=== PATIENT | male | born 1995 | race Two or more races ===

== ENCOUNTER 2020-07-01 12:07 | Emergency (ER) | payer MEDICAID, SELFPAY ==
[2020-07-01 13:16] VITALS: BP 154/83; PULSE 84; RESP 16; TEMP 36.9; O2SAT 98; BMI 35.9
--- NOTE | 2020-07-01 15:41 | ED.DIZZY ---
HPI - Dizziness General Chief Complaint: Dizziness Stated Complaint: lightheaded,ears warm Time Seen by Provider: 07/01/20 15:41 Source: patient Mode of arrival: ambulatory Limitations: no limitations History of Present Illness HPI Narrative: Patient was at work when he suddenly got dizzy. MD elicited complaint: dizziness and lightheadedness Onset (ago): hour(s) Severity: mild Description: lightheadedness History of similar symptoms: No Associated symptoms: other (dry mouth and ear burning) Related Data Allergies Allergy/AdvReac Type Severity Reaction Status Date / Time Environmental Allergy Mild PLANTS-STUFFY Uncoded 06/03/20 17:04 NOSE dust Allergy Unknown Uncoded 01/30/20 00:00 Review of Systems Constitutional: Constitutional: Reports no additional constitutional complaints Eyes: Eyes: Reports no additional eye complaints ENT: Denies dizziness Cardiovascular: Cardiovascular: Reports no additional cardiovascular complaints Respiratory: Respiratory: Reports as per HPI Gastrointestinal: Gastrointestinal: Reports no additional gastrointestinal complaints Musculoskeletal: Musculoskeletal: Reports no additional musculoskeletal complaints Integumentary/Breasts: Skin/Breast: Denies rash Neurologic: Reports system reviewed and no additional complaints, except as documented, Denies dizziness and Denies Sensory deficit (Neuro) Psychiatric: Psychiatric: Denies anxiety PMFSH Past Medical History Medical History (Updated 07/01/20 @ 16:58 by Alessandro Cornejo MD) HTN (hypertension) Pre-diabetes Surgical History (Updated 07/01/20 @ 13:19 by Eloy Smith) Hx of tonsillectomy Social History Social History Alcohol intake: current Alcohol intake frequency: holidays/special occasions only Alcohol type: beer and wine Smoked in Last 30 Days: No Use of substances other than those prescribed or required for medical reasons: No Advance Directives: No Advance Directives Information Provided: Yes Physical Exam Vital Signs: Vital Signs: Vital Signs Temp Pulse Resp BP Pulse Ox 07/01/20 15:48 98.7 F 78 16 130/82 98 07/01/20 13:16 98.5 F 84 16 154/83 H 98 Body Mass Index 35.9 Const: General: healthy appearing Nutritional Appearance: overweight Orientation/consciousness: oriented to person and patient oriented x3 Limitations: no limitations HENMT: Head: Yes normal to inspection Ears: external ears normal General nose exam: Normal external nose present Mouth: Normal oral and palatal mucosa present and oropharynx normal Throat: Yes posterior oropharynx normal Eyes: General: appearance normal, both eyes and all related structures Neck: Other: supple Neck: Yes normal visual inspection Chest: Chest palpation & inspection: normal inspection of the chest Resp: Auscultation: clear to auscultation bilaterally Cardio: Jugular venous distension: no JVD Rate: regular rate Rhythm: regular rhythm Heart sounds: S1 normal heart sound present and S2 normal heart sound present GI: Inspection: Yes normal to inspection Palpation (GI): Soft to palpation, nontender and No hepatosplenomegaly present Auscultation: normal bowel sounds : General: Yes no CVA tenderness Back/Spine/Pelvis: Back: no CVA tenderness Skin: General skin exam: no rashes or lesions noted Neuro: General: oriented to person and patient oriented x3 Cranial nerves: Yes CN's II-XII intact bilaterally Motor exam (neuro): 5/5 motor strength present throughout Sensory Exam: No Sensory deficit (Neuro) Extrem: General: Yes normal to inspection Psych: Appearance: grossly normal Course Course Course Narrative: urine and glucose normal will dc with home hydration MDM - Dizziness Lab Data Labs: Lab Results 07/01/20 07/01/20 Range/Units 15:58 16:01 POC Glucose 103 (60-115) mg/dL Urine Color YELLOW Urine Appearance CLEAR Urine pH 7.0 (5.0-8.0) Ur Specific [place] 1.020 (1.005-1.025) Urine Protein NEG (NEG-TRACE) MG/DL Urine Glucose (UA) NEG (NEG) MG/DL Urine Ketones NEG (NEG) MG/DL Urine Blood TRACE (NEG) Urine Nitrite NEG (NEG) Ur Leukocyte Esterase NEG (NEG) Urine RBC 0-2 (0) /HPF Urine WBC 0 (0-4) /HPF Ur Squamous Epith Cells NONE /LPF Urine Bacteria TRACE /LPF Discharge Plan Discharge Clinical Impression: Dizziness Patient Disposition: Home, Self-Care Additional Instructions: fluids as tolerated Referrals: [facility] [Primary Care Provider] - 2 days
[2020-07-01 15:48] VITALS: BP 130/82; PULSE 78; RESP 16; TEMP 37.1; O2SAT 98
[2020-07-01 16:05] LABS: Glucose, Whole Blood 103 mg/dL (60-115)
[2020-07-01 16:12] LABS: Glucose Urine UA NEG (NEG); Leukocyte Esterase Urine NEG (NEG); Nitrite Urine NEG (NEG); Urine Blood TRACE (NEG); Urine Ketones NEG (NEG); Urine Protein NEG (NEG-TRACE)
[2020-07-01 16:13] LABS: Appearance Urine CLEAR; Color Urine YELLOW
[2020-07-01 16:22] LABS: Bacteria Urine TRACE /LPF; RBC Urine 0-2 /HPF (0); WBC Urine 0 /HPF (0-4)
== END 2020-07-01 17:00 | disposition home or self-care (01) ==
PROVIDERS: Emergency Provider Emergency Medicine
DX: R42 Dizziness and giddiness (principal); I10 Essential (primary) hypertension; R73.03 Prediabetes
CPT/HCPCS: 81001; 82947; 99283; 99284

== ENCOUNTER 2020-10-18 11:57 | Outpatient (REF) | payer MEDICAID, SELFPAY | END 2020-10-18 11:58 | disposition home or self-care (01) | LOC: HO.LAB 11:57 | PROVIDERS: Visit Provider Internal Medicine | DX: Z20.822 Contact with and (suspected) exposure to COVID-19 (principal) | CPT/HCPCS: 36415; C9803; U0003; U0005 ==

== ENCOUNTER 2020-11-06 11:40 | Emergency (ER) | payer MEDICAID, SELFPAY ==
--- NOTE | ~2020-11-06 | CT_ITS ---
EXAMINATION: CT ABDOMEN AND PELVIS WITH CONTRAST CLINICAL INFORMATION: Rectal pain. Tender prostate COMPARISON: 02/05/2020 TECHNIQUE: Multidetector volumetric images were obtained from the superior aspect of the liver through the pubic symphysis following administration 85 mL of Omnipaque 350 intravenous contrast. Sagittal and coronal reformatted images were obtained on the technologist's workstation. Oral contrast: No This CT examination was performed using dose optimization techniques as appropriate, variously including the following: *Automated exposure control *Adjustment of mA and/or kV according to patient size (this includes techniques or standardized protocols for targeted exams where dose is matched to indication/reason for exam; i.e. extremities or head) *Use of iterative reconstruction technique DLP: 884 mGy-cm FINDINGS: LUNG BASES: Clear. LIVER, GALLBLADDER, AND BILIARY TREE: Liver normal in size, contour and morphology. Diffuse hepatic steatosis. No focal liver lesions. No intra or extra hepatic biliary dilatation. Gallbladder unremarkable. PANCREAS: Unremarkable. SPLEEN: Unremarkable. ADRENAL GLANDS: Unremarkable. KIDNEYS AND URETERS: The kidneys are normal in size, shape, and attenuation. Subcentimeter cyst in the upper medial cortex of the right kidney. No hydronephrosis, hydroureter, or calculi seen. No perinephric stranding. BLADDER: Unremarkable. GASTROINTESTINAL TRACT: Scattered sigmoid colonic diverticula without evidence of diverticulitis. Normal appendix. Stomach and small bowel unremarkable. ABDOMINAL WALL: No significant hernia is appreciated. LYMPH NODES: Normal. VASCULAR: Unremarkable. PELVIC VISCERA: Prostate and seminal vesicles grossly unremarkable from a CT imaging standpoint. OSSEOUS STRUCTURES: No acute or suspicious osseous abnormalities CT/CT abdomen pelvis w con IMPRESSION: No acute findings within the abdomen or pelvis to explain the patient's symptomatology. Hepatic steatosis. Scattered sigmoid colonic diverticula without evidence of diverticulitis.
[2020-11-06 11:54] VITALS: BP 149/95; PULSE 86; RESP 18; TEMP 36.7; O2SAT 97; BMI 35.8
[2020-11-06 12:36] LABS: Glucose Urine UA NEG (NEG); Leukocyte Esterase Urine NEG (NEG); Nitrite Urine NEG (NEG); Urine Blood NEG (NEG); Urine Ketones NEG (NEG); Urine Protein NEG (NEG-TRACE)
[2020-11-06 12:38] LABS: Appearance Urine CLEAR; Color Urine YELLOW
[2020-11-06 17:16] VITALS: BP 147/85; PULSE 74; RESP 16; O2SAT 98
--- NOTE | 2020-11-06 17:31 | PC.NURSE ---
this rn and pa at bedside for rectal exam. no blood or stool noted during exam. pt tender in the prostate area. plan for probtec urine.
[2020-11-06 18:00] VITALS: PULSE 85; RESP 16; O2SAT 99
[2020-11-06 18:04] LABS: MANUAL DIFF FLAG NO
[2020-11-06 18:08] LABS: Basophils Percent Auto 0.3 % (0-2); Eosinophils Absolute Auto 0.1 X10*3/uL (0.0-0.4); Eosinophils Percent Auto 1.7 % (0-4); Hematocrit 47.2 % (42-52); Imm Gran Abs Auto 0.01 X10*3/uL (0.00-0.03); Imm Gran Pct Auto 0.2 % (0.0-0.4); Lymphocytes Absolute Auto 1.8 X10*3/uL (1.2-4.9); Lymphocytes Percent Auto 31.3 % (20-40); Mean Corpuscular HGB Conc 33.9 g/dl (31.0-36.0); Mean Corpuscular Hemoglobin 29.5 pg (27.0-33.0); Mean Corpuscular Volume 86.9 fL (80-98); Mean Platelet Volume 10.5 fL (9.4-12.4); Monocytes Absolute Auto 0.6 X10*3/uL (0.1-1.2); Monocytes Percent Auto 9.6 % (2-11); Neutrophils Absolute Auto 3.3 X10*3/uL (2.0-8.3); Neutrophils Percent Auto 56.9 % (45-73); Platelet Count 169 X10*3/uL (160-400); Red Blood Count 5.43 X10*6/uL (4.60-5.80); Red Cell Distribution Width 12.8 % (11.0-16.0); White Blood Count 5.8 X10*3/uL (4.8-10.8)
[2020-11-06 18:30] LABS: Alanine Aminotransferase 52 U/L (0-40); Albumin Level 4.4 g/dL (3.5-5.0); Alkaline Phosphatase 64 U/L (39-117); Anion Gap 14 (12-20); Aspartate Amino Transferase 25 U/L (5-37); Bilirubin Direct 0.2 mg/dL (0.0-0.5); Bilirubin Total 0.6 mg/dL (0.0-1.0); Blood Urea Nitrogen 11 mg/dL (9-16); C Reactive Protein 0.11 mg/dL (< or = 0.50); Carbon Dioxide 30 mmol/L (22-29); Chloride 102 mmol/L (96-108); Creatinine Clr Calc Pharmacy 166.2; Estimated Glomerular Filt Rate > 60; Glucose Random 86 mg/dL (60-115); Lipase 44 U/L (8-78); Potassium 4.1 mmol/L (3.3-5.1); Sodium 142 mmol/L (135-145); Total Protein 7.2 g/dL (6.5-8.0)
--- NOTE | 2020-11-06 18:51 | ED_ITS ---
HPI - Abdominal Pain General Chief Complaint: Abdominal Pain Stated Complaint: R LEG PAIN COLON PAIN Time Seen by Provider: 11/06/20 17:07 Source: patient Mode of arrival: ambulatory History of Present Illness HPI narrative: 24-year-old male with a past medical history of hypertension, prediabetes, presenting to the ED complaining of rectal pain/pressure and burning x2 days. Has been using hemorrhoid medication at home without relief. A dmits he is sexually active with 1 female partner, denies history/concern for STIs. Denies fever, chills, nausea/vomiting, abdominal pain, dysuria/hematuria, testicular/penile pain, anal trauma/penetration. MD elicited complaint: other Related Data Previous Rx's Medication Instructions Recorded levofloxacin 500 mg PO DAILY 10 Days #10 tab 11/06/20 Allergies Allergy/AdvReac Type Severity Reaction Status Date / Time minerals [From Enviro Stress] Allergy Itchy Eyes Verified 11/06/20 12:01 pollen extracts Allergy Itchy Eyes Verified 11/06/20 12:01 vitamin B complex and C Allergy Itchy Eyes Verified 11/06/20 12:01 [From Enviro Stress] vitamin E (d-alpha Allergy Itchy Eyes Verified 11/06/20 12:01 tocopherol) [From Enviro Stress] Review of Systems Review of Systems Constitutional: No Fever, No Chills Cardiovascular: No Chest Pain, No SOB Respiratory: No Cough Gastrointestinal: No Nausea, No Vomiting, No Diarrhea, No Constipation, No Abdominal pain, No Hematochezia, No Melena Genitourinary: No irregular bleeding, No Dysuria, No Urinary Frequency, No Hematuria, No Flank Pain, No Urinary Flow Changes, +rectal pain Musculoskeletal: No joint pain, No Myalgias, No Joint Swelling Skin: No Skin Lesions, No rash Yes all other systems are reviewed and are negative Physical Exam Vital Signs: Vital Signs: Last Vital Signs Temp 98.1 F 11/06/20 11:54 Pulse 85 11/06/20 18:00 Resp 16 11/06/20 18:00 BP 147/85 H 11/06/20 17:16 Pulse Ox 99 11/06/20 18:00 Body Mass Index 35.8 Const: General: cooperative and healthy appearing Orientation/consciousness: patient oriented x3 Limitations: no limitations HENMT: Head: Yes normal to inspection Ears: hearing grossly normal bilaterally General nose exam: Normal external nose present Face and sinus: Yes normal facial exam Eyes: General: appearance normal, both eyes and all related structures EOM: EOMs intact bilaterally Neck: Neck: Yes normal visual inspection Resp: Effort & Inspection: normal respiratory effort Cardio: Rate: regular rate GI: Inspection: Yes normal to inspection Palpation (GI): Soft to palpation, nontender, no guarding and not rigid Rectal Exam - Male: Yes visual inspection normal, Yes normal sphincter tone, Yes prostate abnormal (Boggy and tender to palpation), No External hemorrhoid(s) present, No Fistula present (GI), No Laceration(s) present (GI), No Excoriation present (GI), No fecal impaction, No Anal fissure(s) present and No mass : General: Yes no CVA tenderness Back/Spine/Pelvis: Back: no CVA tenderness Skin: Rashes: no rashes Wounds: no wounds Neuro: General: patient oriented x3 Gait exam (Neuro): Normal gait present Extrem: General: Yes normal to inspection Course Course Course Narrative: -ALT mildly elevated, labs otherwise unremarkable, no leukocytosis, ESR/CRP negative -UA negative CT abdomen pelvis w con IMPRESSION: No acute findings within the abdomen or pelvis to explain the patient's symptomatology. Hepatic steatosis. Scattered sigmoid colonic diverticula without evidence of diverticulitis. >> will treat empirically for prostatitis with Levaquin. results discussed with patient including worrisome signs and symptoms and strict return precautions. Will have patient follow-up urology outpatient. He verbalized understanding feel safe for discharge home MDM - Abdominal Pain MDM Narrative Medical decision making narrative: 24-year-old male with a past medical history of hypertension, prediabetes, presenting to the ED complaining of rectal pain/pressure and burning x2 days. On exam VSS, NAD/well-appearing, physical exam as above. On digital rectal exam prostate noted to be boggy and tender. Concern for prostatitis vs UTI vs abscess vs anatomical issue. No appreciable hemorrhoids/fissures. Lower concern for appendicitis/diverticulitis Plan: Labs, UA, CT AP, re-evaluate Medical Records Attestation: I reviewed the patient's medical records. Lab Data Attestation: I reviewed the patient's lab results. Result diagrams: 11/06/20 17:57 11/06/20 17:57 Labs: Lab Results 11/06/20 11/06/20 11/06/20 Range/Units 12:03 17:57 17:57 WBC (4.8-10.8) X10*3/uL RBC (4.60-5.80) X10*6/uL Hgb (14.0-18.0) g/dl Hct (42-52) % MCV (80-98) fL MCH (27.0-33.0) pg MCHC (31.0-36.0) g/dl RDW (11.0-16.0) % Plt Count (160-400) X10*3/uL MPV (9.4-12.4) fL Immature Gran % (Auto) (0.0-0.4) % Neut % (Auto) (45-73) % Lymph % (Auto) (20-40) % [place] % (Auto) (2-11) % Eos % (Auto) (0-4) % Baso % (Auto) (0-2) % Lymph # (Auto) (1.2-4.9) X10*3/uL [place] # (Auto) (0.1-1.2) X10*3/uL Eos # (Auto) (0.0-0.4) X10*3/uL Baso # (Auto) (0.0-0.2) X10*3/uL Abs Immat Gran (auto) (0.00-0.03) X10*3/uL Absolute Neuts (auto) (2.0-8.3) X10*3/uL Absolute Nucleated RBC (0.0-0.012) X10*3/uL Nucleated RBC % (auto) (0.0-0.2) /100WBC ESR 4 (0-15) MM/HR Hold Blue Top Sodium 142 (135-145) mmol/L Potassium 4.1 (3.3-5.1) mmol/L Chloride 102 (96-108) mmol/L Carbon Dioxide 30 H (22-29) mmol/L Anion Gap 14 (12-20) BUN 11 (9-16) mg/dL Creatinine 0.96 (0.5-1.4) mg/dL Estim Creat Clear Calc 166.2 Estimated GFR > 60 Random Glucose 86 (60-115) mg/dL Calcium 9.0 (8.4-10.2) mg/dL Total Bilirubin 0.6 (0.0-1.0) mg/dL Direct Bilirubin 0.2 (0.0-0.5) mg/dL AST 25 (5-37) U/L ALT 52 H (0-40) U/L Alkaline Phosphatase 64 (39-117) U/L C-Reactive Protein 0.11 (< or = 0.50) mg/dL Total Protein 7.2 (6.5-8.0) g/dL Albumin 4.4 (3.5-5.0) g/dL Lipase 44 (8-78) U/L Urine Color YELLOW Urine Appearance CLEAR Urine pH 7.0 (5.0-8.0) Ur Specific [place] 1.020 (1.005-1.025) Urine Protein NEG (NEG-TRACE) MG/DL Urine Glucose (UA) NEG (NEG) MG/DL Urine Ketones NEG (NEG) MG/DL Urine Blood NEG (NEG) Urine Nitrite NEG (NEG) Ur Leukocyte Esterase NEG (NEG) 11/06/20 11/06/20 Range/Units 17:57 17:57 WBC 5.8 (4.8-10.8) X10*3/uL RBC 5.43 (4.60-5.80) X10*6/uL Hgb 16.0 (14.0-18.0) g/dl Hct 47.2 (42-52) % MCV 86.9 (80-98) fL MCH 29.5 (27.0-33.0) pg MCHC 33.9 (31.0-36.0) g/dl RDW 12.8 (11.0-16.0) % Plt Count 169 (160-400) X10*3/uL MPV 10.5 (9.4-12.4) fL Immature Gran % (Auto) 0.2 (0.0-0.4) % Neut % (Auto) 56.9 (45-73) % Lymph % (Auto) 31.3 (20-40) % [place] % (Auto) 9.6 (2-11) % Eos % (Auto) 1.7 (0-4) % Baso % (Auto) 0.3 (0-2) % Lymph # (Auto) 1.8 (1.2-4.9) X10*3/uL [place] # (Auto) 0.6 (0.1-1.2) X10*3/uL Eos # (Auto) 0.1 (0.0-0.4) X10*3/uL Baso # (Auto) 0.0 (0.0-0.2) X10*3/uL Abs Immat Gran (auto) 0.01 (0.00-0.03) X10*3/uL Absolute Neuts (auto) 3.3 (2.0-8.3) X10*3/uL Absolute Nucleated RBC 0.000 (0.0-0.012) X10*3/uL Nucleated RBC % (auto) 0.0 (0.0-0.2) /100WBC ESR (0-15) MM/HR Hold Blue Top SEE NOTE Sodium (135-145) mmol/L Potassium (3.3-5.1) mmol/L Chloride (96-108) mmol/L Carbon Dioxide (22-29) mmol/L Anion Gap (12-20) BUN (9-16) mg/dL Creatinine (0.5-1.4) mg/dL Estim Creat Clear Calc Estimated GFR Random Glucose (60-115) mg/dL Calcium (8.4-10.2) mg/dL Total Bilirubin (0.0-1.0) mg/dL Direct Bilirubin (0.0-0.5) mg/dL AST (5-37) U/L ALT (0-40) U/L Alkaline Phosphatase (39-117) U/L C-Reactive Protein (< or = 0.50) mg/dL Total Protein (6.5-8.0) g/dL Albumin (3.5-5.0) g/dL Lipase (8-78) U/L Urine Color Urine Appearance Urine pH (5.0-8.0) Ur Specific [place] (1.005-1.025) Urine Protein (NEG-TRACE) MG/DL Urine Glucose (UA) (NEG) MG/DL Urine Ketones (NEG) MG/DL Urine Blood (NEG) Urine Nitrite (NEG) Ur Leukocyte Esterase (NEG) Discharge Plan Discharge Clinical Impression: Acute prostatitis Patient Disposition: Home, Self-Care Instructions: Prostatitis (ED) Additional Instructions: Your blood work, urine, and CT were reassuring today in the ED. It is possible you have prostatitis which is an infection of the prostate. Levaquin is an antibiotic, take as prescribed. You need to follow-up with urologist. If her symptoms persist or worsen, you have fever, rectal bleeding, nausea/vomiting return to the ED immediately Prescriptions: New levofloxacin 500 mg tablet 500 mg PO DAILY 10 Days Qty: 10 RF: 0 Referrals: Franklyn Hernandez MD [Physician] - 5 days PMF Past Medical History Attestation statement: The following information was validated with the patient. Medical History (Updated 11/06/20 @ 19:28 by JOCY Curiel) HTN (hypertension) Pre-diabetes Social History Social History Alcohol intake: current Alcohol intake frequency: holidays/special occasions only Alcohol type: beer and wine Smoking Status: Never smoker Use of substances other than those prescribed or required for medical reasons: No Advance Directives: Yes Advance Directives Information Provided: Yes Advance Directives on File: No
[2020-11-06 19:02] LABS: Erythrocyte Sedimentation Rate 4 MM/HR (0-15)
[2020-11-06] MEDS: iohexoL 350 MG/ML 100 ML INFUS..BTL IV (19:09)
[2020-11-06 19:41] VITALS: BP 148/91; PULSE 68; RESP 18; TEMP 36.6; O2SAT 99
[2020-11-06] MEDS: levoFLOXacin 500 MG TABLET PO (19:52)
[2020-11-12 12:07] LABS: C. trachomatis RNA TMA NOT DETECTED; N. gonorrhoeae RNA TMA NOT DETECTED
== END 2020-11-06 19:53 | disposition home or self-care (01) ==
PROVIDERS: Physician Assistant; Emergency Provider Internal Medicine
DX: N41.0 Acute prostatitis (principal); I10 Essential (primary) hypertension; R73.03 Prediabetes
CPT/HCPCS: 36415; 74177; 80048; 80076; 81003; 83690; 85025; 85652; 86140; 87491; 87591; 99284; 99285; Q9967

== ENCOUNTER 2020-12-09 12:52 | Emergency (ER) | payer MEDICAID, SELFPAY ==
[2020-12-09 13:23] VITALS: BP 158/85; PULSE 73; RESP 18; TEMP 36.6; O2SAT 99; BMI 35.3
--- NOTE | 2020-12-09 13:41 | ED.GENADULT ---
HPI - General Adult General Chief complaint: General Medical Stated complaint: back pain,no inj Time Seen by Provider: 12/09/20 13:41 History of Present Illness HPI narrative: Patient complains of low back pain worse with movement, he is concerned as he had an episode of prostatitis some months ago that included pain in the lower back but today's pain is not the same location, he has no burning with urination no abdominal pain no testicular pain no rectal pain, no fever no chills no nausea no vomiting Related Data Previous Rx's Medication Instructions Recorded levofloxacin 500 mg PO DAILY 10 Days #10 tab 11/06/20 cyclobenzaprine 5 mg PO TID PRN #10 tab 12/09/20 Allergies Allergy/AdvReac Type Severity Reaction Status Date / Time minerals [From Enviro Stress] Allergy Itchy Eyes Verified 11/06/20 12:01 pollen extracts Allergy Itchy Eyes Verified 11/06/20 12:01 vitamin B complex and C Allergy Itchy Eyes Verified 11/06/20 12:01 [From Enviro Stress] vitamin E (d-alpha Allergy Itchy Eyes Verified 11/06/20 12:01 tocopherol) [From Enviro Stress] Review of Systems Review of Systems: General appearance no acute distress comfortable relaxed and cooperative, a and O x3 Head is normocephalic atraumatic Neck is supple Respiratory no distress Abdomen soft nontender Genital exam no testicular swelling no discharge no hernia mass palpated Rectal exam was normal rectal tone, normal colored stool on the glove, no prostate tenderness, no bogginess or swelling of the prostate, no mass palpated Back had lower lumbar tenderness paraspinal on both sides, pain was reproduced with movement, the skin was normal, no CVA tenderness Skin no rash Extremities full range of motion x4 Neuro no focal deficit Yes all other systems are reviewed and are negative [facility] Past Medical History Medical History (Updated 12/10/20 @ 00:01 by Background Daemon) HTN (hypertension) Pre-diabetes Social History Social History Alcohol intake: current Alcohol intake frequency: holidays/special occasions only Alcohol type: beer and wine Smoking Status: Never smoker Physical Exam Vital Signs: Vital Signs: Last Vital Signs Temp 97.8 F 12/09/20 13:23 Pulse 73 12/09/20 13:23 Resp 18 12/09/20 13:23 BP 158/85 H 12/09/20 13:23 Pulse Ox 99 12/09/20 13:23 Body Mass Index 35.3 Course Course Course Narrative: Urinalysis was negative, no sign of infection GC chlamydia tests are pending Prostate exam was normal it was pain-free and this does not appear to be prostatitis and is most likely musculoskeletal back pain Medical Decision Making Lab Data Lab results reviewed: Yes I reviewed the patient's lab results. Labs: Lab Results 12/09/20 12/09/20 Range/Units 14:11 14:11 Urine Color YELLOW Urine Appearance CLEAR Urine pH 7.0 (5.0-8.0) Ur Specific [place] 1.020 (1.005-1.025) Urine Protein NEG (NEG-TRACE) MG/DL Urine Glucose (UA) NEG (NEG) MG/DL Urine Ketones NEG (NEG) MG/DL Urine Blood NEG (NEG) Urine Nitrite NEG (NEG) Ur Leukocyte Esterase NEG (NEG) Chlam trachomat DNA PCR NOT DETECTED (Not Detect.) N.gonorrhoeae DNA (PCR) NOT DETECTED (Not Detect.) Discharge Plan Discharge Clinical Impression: Low back pain, Elevated blood pressure reading Patient Disposition: Home, Self-Care Additional Instructions: The prostate exam today was normal with no sign of prostatitis, your urinalysis was normal too Pain is likely musculoskeletal pain If anything changes or worsens come back to the ER any time As you had a history of prostatitis it is a good idea to follow with the urologist Your blood pressure was elevated at 158/85, this may be simple anxiety at going to the hospital or it may be that it is always elevated despite taking her medicine Best plan is get a home blood pressure cuff and keep a log of the readings and if their high over 130 then make an appointment with primary doctor for adjustment or change in her blood pressure controlling medications Prescriptions: New cyclobenzaprine 5 mg tablet 5 mg PO TID PRN (Reason: muscle spasm) Qty: 10 RF: 0 No Action levofloxacin 500 mg tablet 500 mg PO DAILY 10 Days Qty: 10 RF: 0 Referrals: Franklyn Hrenandez MD [Physician] - 2 days (Recent prostatitis infection) Stand Alone Forms: Work/School Release Interventions: ED Discharge Assessment Last Done: 12/09/20 15:03 Discharge Date/Time: 12/09/20 15:04
[2020-12-09 14:25] LABS: Glucose Urine UA NEG (NEG); Leukocyte Esterase Urine NEG (NEG); Nitrite Urine NEG (NEG); Urine Blood NEG (NEG); Urine Ketones NEG (NEG); Urine Protein NEG (NEG-TRACE)
[2020-12-09 14:27] LABS: Appearance Urine CLEAR; Color Urine YELLOW
[2020-12-09 16:26] LABS: CT PCR NOT DETECTED (Not Detect.); NG PCR NOT DETECTED (Not Detect.)
== END 2020-12-09 15:04 | disposition home or self-care (01) ==
PROVIDERS: Physician Assistant Medical; Emergency Provider Emergency Medicine
DX: M54.5 Low back pain (principal); I10 Essential (primary) hypertension
CPT/HCPCS: 81003; 87491; 87591; 99283

== ENCOUNTER 2020-12-13 07:42 | Outpatient (REF) | payer MEDICAID, SELFPAY | END 2020-12-13 07:43 | disposition home or self-care (01) | LOC: HO.LAB 07:42 | PROVIDERS: Visit Provider Internal Medicine | DX: Z20.822 Contact with and (suspected) exposure to COVID-19 (principal) | CPT/HCPCS: 36415; C9803; U0003; U0005 ==

== ENCOUNTER 2021-01-26 14:06 | Outpatient (REF) | payer MEDICAID, SELFPAY ==
[2021-01-26 14:44] LABS: COVID-19 Test Negative (Negative)
== END 2021-01-26 14:07 | disposition home or self-care (01) ==
LOC: HO.LAB 14:06
PROVIDERS: Visit Provider Internal Medicine
DX: Z20.822 Contact with and (suspected) exposure to COVID-19 (principal)
CPT/HCPCS: 36415; 87635; C9803

== ENCOUNTER 2021-03-08 19:57 | Emergency (ER) | payer MEDICAID, SELFPAY ==
[2021-03-08 20:03] VITALS: BP 158/79; PULSE 72; RESP 18; TEMP 36.1; O2SAT 97; BMI 35.9
== END 2021-03-08 21:21 | disposition left against medical advice (07) ==
PROVIDERS: Emergency Provider Emergency Medicine
DX: R42 Dizziness and giddiness (principal)
CPT/HCPCS: 99281; 99282

== ENCOUNTER 2021-03-11 10:36 | Emergency (ER) | payer MEDICAID, SELFPAY ==
[2021-03-11 10:42] VITALS: BP 154/86; PULSE 78; RESP 18; TEMP 36.6; O2SAT 99; BMI 35.9
--- NOTE | 2021-03-11 11:20 | ED_ITS ---
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 He reports profuse bleeding from the tip of his finger and thinks he almost cut it completely off. He has pain and bleeding on arrival. He does not know when his last tetanus shot was. Onset (ago): minute(s) Extremity Location: left: hand (distal index finger) Place: work Patient tetanus UTD: No Context: accidental Associated symptoms: pain Treatments prior to arrival: bandage Related Data Previous Rx's Medication Instructions Recorded levofloxacin 500 mg PO DAILY 10 Days #10 tab 11/06/20 cyclobenzaprine 5 mg PO TID PRN #10 tab 12/09/20 Allergies Allergy/AdvReac Type Severity Reaction Status Date / Time minerals [From Enviro Stress] Allergy Itchy Eyes Verified 03/11/21 10:47 pollen extracts Allergy Itchy Eyes Verified 03/11/21 10:47 vitamin B complex and C Allergy Itchy Eyes Verified 03/11/21 10:47 [From Enviro Stress] vitamin E (d-alpha Allergy Itchy Eyes Verified 03/11/21 10:47 tocopherol) [From Enviro Stress] Review of Systems Review of Systems: Constitutional: No Fever, No Chills Gastrointestinal: No Nausea, No Vomiting Musculoskeletal: No joint pain, No Myalgias Skin: + Skin Lesions, No rash Neuro: No Weakness, No Numbness Psych: + Anxiety/Panic, No Depression Heme/Lymph: No Bruising PMFSH Past Medical History Attestation statement: The following information was validated with the patient. Medical History HTN (hypertension) Pre-diabetes Social History Social History Alcohol intake: current Alcohol intake frequency: holidays/special occasions o nly Alcohol type: beer and wine Advance Directives: Yes Advance Directives Information Provided: No Advance Directives on File: No Physical Exam Vital Signs: Vital Signs: Last Vital Signs Temp 98 F 03/11/21 10:42 Pulse 78 03/11/21 10:42 Resp 18 03/11/21 10:42 BP 154/86 H 03/11/21 10:42 Pulse Ox 99 03/11/21 10:42 Body Mass Index 35.9 Appearance: Alert. Oriented X3. No acute distress. HEENT: normal inspection CVS: Normal heart rate and rhythm. Pulses normal. Respiratory: No respiratory distress. Skin: Skin warm and dry. Normal skin color. Normal skin turgor. No rashes. Extremities: left index finger with superficial avulsion of the fingertip pad with active oozing of blood. normal ROM of the finger, good cap refill. no laceration or flap Neuro: Oriented X 3. No motor deficit. No sensory deficit. Course Course Course Narrative: 25 y/o male presenting with left index fingertip complete avulsion of finger pulp, superficial with active bleeding. Direct pressure applied for >10 mins with continued bleeding. Quickclot applied with good effect. Gauze dressing applied to the area for reinforcement. No active bleeding. Patient would like to be discharged so he can go back to work. Encouraged him to take the rest of the day off and limit use of his left hand. We discussed wound care and warning signs to prompt urgent return to the ER. Stable for d/c. Discharge Plan Discharge Clinical Impression: Avulsion of skin Patient Disposition: Home, Self-Care Instructions: Skin Avulsion (ED) Prescriptions: No Action levofloxacin 500 mg tablet 500 mg PO DAILY 10 Days Qty: 10 RF: 0 cyclobenzaprine 5 mg tablet 5 mg PO TID PRN (Reason: muscle spasm) Qty: 10 RF: 0 Referrals: [facility] [Provider Group] - 2 days
[2021-03-11] MEDS: Diphth,Pertus(ACell),Tet Adult 0.5 ML SYRINGE IM (11:31)
== END 2021-03-11 11:36 | disposition home or self-care (01) ==
PROVIDERS: Emergency Provider Emergency Medicine
DX: S61.211A Laceration without foreign body of left index finger without damage to nail, initial encounter (principal); W29.3XXA Contact with powered garden and outdoor hand tools and machinery, initial encounter; Y93.H2 Activity, gardening and landscaping; Y92.89 Other specified places as the place of occurrence of the external cause; Y99.0 Civilian activity done for income or pay
CPT/HCPCS: 90471; 90715; 99284

== ENCOUNTER 2021-03-23 16:24 | Emergency (ER) | payer MEDICAID, SELFPAY ==
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
[2021-03-23 16:44] VITALS: BP 168/89; RESP 17; TEMP 36.8; O2SAT 98; BMI 35.9
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
[2021-03-23 17:43] LABS: Glucose Urine UA NEG (NEG); Leukocyte Esterase Urine NEG (NEG); Nitrite Urine NEG (NEG); Specific Gravity - Urine <= 1.005 (1.005-1.025); Urine Blood NEG (NEG); Urine Ketones NEG (NEG); Urine Protein NEG (NEG-TRACE)
[2021-03-23 17:46] LABS: Appearance Urine CLEAR; Color Urine YELLOW
[2021-03-23] MEDS: cefTRIAXone sodium 500 MG, Lidocaine HCl 1 % MPF 1 ML IM (18:01)
[2021-03-23 18:37] LABS: Syphilis Screen Nonreactive (Nonreactive)
[2021-03-24 02:32] LABS: CT PCR NOT DETECTED (Not Detect.); NG PCR NOT DETECTED (Not Detect.)
== END 2021-03-23 18:16 | disposition home or self-care (01) ==
PROVIDERS: Physician Assistant Medical; Emergency Provider Emergency Medicine
DX: S39.012A Strain of muscle, fascia and tendon of lower back, initial encounter (principal); R30.9 Painful micturition, unspecified; I10 Essential (primary) hypertension; V92.03XA Drowning and submersion due to fall off other powered watercraft, initial encounter; Y93.9 Activity, unspecified; Y92.9 Unspecified place or not applicable; Y99.9 Unspecified external cause status; Z20.2 Contact with and (suspected) exposure to infections with a predominantly sexual mode of transmission
CPT/HCPCS: 36415; 72100; 81003; 86780; 87491; 87591; 96372; 99284; J0696

== ENCOUNTER 2021-08-03 11:17 | Emergency (ER) | payer MEDICAID, SELFPAY ==
--- NOTE | ~2021-08-03 | XR_ITS ---
EXAMINATION: XR FOOT, LEFT CLINICAL INFORMATION: Pain and swelling after rolling is foot. COMPARISON: None TECHNIQUE: AP, lateral, and oblique views of the left foot. FINDINGS: The bones and soft tissues are normal. No fracture. Alignment is anatomic. Joint spaces are maintained. Small calcaneal heel and retrocalcaneal enthesophytes. XR/XR foot LT 2V IMPRESSION: Small calcaneal heel and retrocalcaneal enthesophytes. Otherwise no visible acute fracture, dislocation or subluxation.
[2021-08-03 11:25] VITALS: BP 147/93; PULSE 87; RESP 18; TEMP 36.6; O2SAT 96; BMI 38.0
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
[2021-08-03] MEDS: Ketorolac Tromethamine 60 MG/2 ML VIAL IM (12:25)
== END 2021-08-03 13:07 | disposition home or self-care (01) ==
PROVIDERS: Emergency Provider Emergency Medicine
DX: S93.602A Unspecified sprain of left foot, initial encounter (principal); I10 Essential (primary) hypertension; X58.XXXA Exposure to other specified factors, initial encounter; Y93.89 Activity, other specified; Y92.410 Unspecified street and highway as the place of occurrence of the external cause; Y99.9 Unspecified external cause status
CPT/HCPCS: 73620; 96372; 99283; 99284; J1885

== ENCOUNTER 2022-01-23 22:20 | Emergency (ER) | payer MEDICAID, SELFPAY | END 2022-01-23 22:50 | disposition left against medical advice (07) | PROVIDERS: Emergency Provider Emergency Medicine | DX: R10.9 Unspecified abdominal pain (principal) ==

== ENCOUNTER 2022-03-01 06:04 | Emergency (ER) | payer MEDICAID, SELFPAY ==
--- NOTE | ~2022-03-01 | US_ITS ---
EXAMINATION: US VENOUS ULTRASOUND WITH DOPPLER LOWER EXTREMITY, BILATERAL CLINICAL INFORMATION: Lower extremity pain and swelling. COMPARISON: None TECHNIQUE: Ultrasound of the deep veins is performed from the hip to the calf with compression sonography and color and pulse Doppler assessment. Spectral analysis with color-flow imaging is performed. FINDINGS: RIGHT: There is normal venous compression and respiratory variation and augmented flow. The visualized common femoral vein, superficial femoral vein, profunda femoral vein, popliteal vein, and the trifurcation region shows no evidence of deep venous thrombosis. There is no significant popliteal fossa cyst. LEFT: There is normal venous compression and respiratory variation and augmented flow. The visualized common femoral vein, superficial femoral vein, profunda femoral vein, popliteal vein, and the trifurcation region shows no evidence of deep venous thrombosis. There is no significant popliteal fossa cyst. If the patient's symptoms persist, followup ultrasound in 5 days 7 days might be of value to exclude proximal propagation from a non-visualized calf vein. US/US venous duplex LE BI IMPRESSION: No evidence for deep venous thrombosis in the visualized veins of the bilateral lower extremities.
[2022-03-01 06:13] VITALS: BP 150/79; PULSE 76; RESP 18; TEMP 36.6; O2SAT 98; BMI 39.8
--- NOTE | 2022-03-01 07:49 | ED_ITS ---
HPI - Extremity Problem General Chief complaint: Extremity Problem Stated complaint: swollen legs, leg pain Time Seen by Provider: 03/01/22 07:47 Source: patient Mode of arrival: ambulatory Limitations: no limitations History of Present Illness MD Complaint: extremity pain and extremity swelling Onset (ago): day(s) (3) Pain Consistency: constant Location: left, right and lower extremity Quality: aching, dull and constant Radiation: none Relieving factors: immobilization Exacerbating factors: walking Associated symptoms: denies other symptoms Context: other (cannot think of any reasons or changes as to why this would have happened - no exercise, no new medications takes lisinopril and fish oil) Related Data Previous Rx's Medication Instructions Recorded levofloxacin 500 mg tablet 500 mg PO DAILY 10 days #10 tabs 11/06/20 cyclobenzaprine 5 mg tablet 5 mg PO TID PRN muscle spasm #10 12/09/20 tabs acetaminophen 500 mg tablet 1,000 mg PO QID PRN fever or pain 03/23/21 (Tylenol Extra Strength) #14 tabs cyclobenzaprine 10 mg tablet 10 mg PO Q8H Muscle spasm #10 tabs 03/23/21 doxycycline hyclate 100 mg tablet 100 mg PO BID 10 days #20 tabs 03/23/21 ibuprofen 800 mg tablet 800 mg PO Q8H PRN pain #14 tabs 03/23/21 cyclobenzaprine 10 mg tablet 10 mg PO TID #10 tabs 08/03/21 naproxen 500 mg tablet (Naprosyn) 500 mg PO BID #20 tabs 08/03/21 cyclobenzaprine 10 mg tablet 10 mg PO TID PRN muscle spasm #20 03/01/22 tabs furosemide 20 mg tablet (Lasix) 20 mg PO DAILY 3 days #3 tabs 03/01/22 potassium chloride 10 mEq 10 meq PO DAILY #4 tabs 03/01/22 tablet,extended release Allergies Allergy/AdvReac Type Severity Reaction Status Date / Time minerals [From Enviro Stress] Allergy Itchy Eyes Verified 03/23/21 16:44 pollen extracts Allergy Itchy Eyes Verified 03/23/21 16:44 vitamin B complex and C Allergy Itchy Eyes Verified 03/23/21 16:44 [From Enviro Stress] vitamin E (d-alpha Allergy Itchy Eyes Verified 03/23/21 16:44 tocopherol) [From Enviro Stress] Review of Systems Review of Systems: Constitutional : No Weight loss, No Fever, No Chills, No Fatigue, No Malaise ENT/Mouth : No sore throat, No Rhinorrhea Eyes: No Eye Pain, No Swelling, No Redness Cardiovascular : No Chest Pain, No SOB, No Dyspnea on Exertion, No Orthopnea, pos Edema, No Palpitations Respiratory : No Cough, No Sputum, No Wheezing Gastrointestinal : No Nausea, No Vomiting, No Diarrhea, No Constipation, No abdominal Pain, No Hematochezia, No Melena Genitourinary : No Dysuria, No Urinary Frequency, No Hematuria, Musculoskeletal : No joint pain, pos Myalgias, No Joint Swelling Skin : No Skin Lesions, No rash Neuro : No Weakness, No Numbness, No Dizziness, No Headache Psych : No Anxiety/Panic, No Depression Heme/Lymph: No Bruising, No Bleeding,No Lymphadenopathy Endocrine : No Polyuria, No Polydipsia All other systems reviewed and are negative [facility], [facility] Past Medical History Attestation statement: The following information was validated with the patient. Medical History HTN (hypertension) Pre-diabetes Social History Social History (Updated 03/01/22 @ 08:06 by Eliza Karimi DO) Alcohol intake: current Alcohol intake frequency: holidays/special occasions only Alcohol type: beer and wine Patient Tobacco Use Status: Never used Tobacco Advance Directives: No Advance Directives Information Provided: Yes Physical Exam Vital Signs: Vital Signs: Last Vital Signs Temp 97.9 F 03/01/22 06:13 Pulse 76 03/01/22 06:13 Resp 18 03/01/22 06:13 BP 150/79 H 03/01/22 06:13 Pulse Ox 98 03/01/22 06:13 O2 Del Method 03/01/22 06:13 BMI result Body Mass Index 39.8 Appearance: Alert. Oriented X3. No acute distress. Eyes: Pupils equal, round and reactive to light. ENT: Pharynx normal. Neck: Normal inspection. Neck supple. CVS: Normal heart rate and rhythm. Pulses normal. Respiratory: No respiratory distress. Breath sounds normal. Abdomen: Soft and nontender. Skin: Skin warm and dry. Normal skin color. Normal skin turgor. Extremities: distal NV intact, trace pitting edema anterior shins ttp in both calves - compartments are soft and compressible Neuro: Oriented X 3. No motor deficit. No sensory deficit. Course Course Course Narrative: prior elevations in LFTs no dehydration lytes normal no DVT will start on low dose diuretics and MRs and DC home MDM - Extremity (Nontraumatic) MDM Narrative Medical decision making narrative: 26 yo male hx of HTN, HLD on lisinopril and fish oil here with c/o leg cramps and mild edema to legs - no trauma, no exercise no drugs. He has no signs of infection no prior bouts of this in the past. He does not work outside. At this time will need labs, US for DVT Lab Data Result diagrams: 03/01/22 08:15 03/01/22 08:15 Labs: Lab Results 03/01/22 03/01/22 03/01/22 Range/Units 08:15 08:15 08:15 WBC 4.8 (4.8-10.8) X10*3/uL RBC 5.45 (4.60-5.80) X10*6/uL Hgb 15.8 (14.0-18.0) g/dl Hct 47.3 (42.0-52.0) % MCV 86.8 (80.0-98.0) fL MCH 29.0 (27.0-33.0) pg MCHC 33.4 (31.0-36.0) g/dl RDW 12.6 (11.0-16.0) % Plt Count 187 (160-400) X10*3/uL MPV 10.3 (9.4-12.4) fL Immature Gran % (Auto) 0.2 (0.0-0.4) % Neut % (Auto) 58.3 (45-73) % Lymph % (Auto) 31.2 (20-40) % [place] % (Auto) 7.8 (2-11) % Eos % (Auto) 2.3 (0-4) % Baso % (Auto) 0.2 (0-2) % Lymph # (Auto) 1.5 (1.2-4.9) X10*3/uL [place] # (Auto) 0.4 (0.1-1.2) X10*3/uL Eos # (Auto) 0.1 (0.0-0.4) X10*3/uL Baso # (Auto) 0.0 (0.0-0.2) X10*3/uL Abs Immat Gran (auto) 0.01 (0.00-0.03) X10*3/uL Absolute Neuts (auto) 2.8 (2.0-8.3) x10*3/uL Absolute Nucleated RBC 0.000 (0.0-0.012) X10*3/uL Nucleated RBC % (auto) 0.0 (0.0-0.2) /100WBC Sodium 140 (135-145) mmol/L Potassium 4.1 (3.3-5.1) mmol/L Chloride 103 (96-108) mmol/L Carbon Dioxide 30 H (22-29) mmol/L Anion Gap 11 L (12-20) BUN 11 (9-16) mg/dL Creatinine 0.95 (0.5-1.4) mg/dL Estim Creat Clear Calc 174.3 Estimated GFR > 60 Random Glucose 83 (60-115) mg/dL Calcium 9.0 (8.4-10.2) mg/dL Magnesium 2.3 (1.6-2.6) mg/dL Total Bilirubin 0.8 (0.0-1.0) mg/dL Direct Bilirubin 0.3 (0.0-0.5) mg/dL AST 56 H (5-37) U/L ALT 109 H (0-40) U/L Alkaline Phosphatase 75 (39-117) U/L Total Creatine Kinase 212 H (38-174) U/L B-Natriuretic Peptide < 10 (<100) pg/mL Total Protein 7.4 (6.5-8.0) g/dL Albumin 4.5 (3.5-5.0) g/dL Lipase 50 (8-78) U/L Urine Color Urine Appearance Urine pH (5.0-8.0) Ur Specific [place] (1.005-1.025) Urine Protein (NEG-TRACE) MG/DL Urine Glucose (UA) (NEG) MG/DL Urine Ketones (NEG) MG/DL Urine Blood (NEG) Urine Nitrite (NEG) Ur Leukocyte Esterase (NEG) 03/01/22 03/01/22 Range/Units 08:15 08:42 WBC (4.8-10.8) X10*3/uL RBC (4.60-5.80) X10*6/uL Hgb (14.0-18.0) g/dl Hct (42.0-52.0) % MCV (80.0-98.0) fL MCH (27.0-33.0) pg MCHC (31.0-36.0) g/dl RDW (11.0-16.0) % Plt Count (160-400) X10*3/uL MPV (9.4-12.4) fL Immature Gran % (Auto) (0.0-0.4) % Neut % (Auto) (45-73) % Lymph % (Auto) (20-40) % [place] % (Auto) (2-11) % Eos % (Auto) (0-4) % Baso % (Auto) (0-2) % Lymph # (Auto) (1.2-4.9) X10*3/uL [place] # (Auto) (0.1-1.2) X10*3/uL Eos # (Auto) (0.0-0.4) X10*3/uL Baso # (Auto) (0.0-0.2) X10*3/uL Abs Immat Gran (auto) (0.00-0.03) X10*3/uL Absolute Neuts (auto) (2.0-8.3) x10*3/uL Absolute Nucleated RBC (0.0-0.012) X10*3/uL Nucleated RBC % (auto) (0.0-0.2) /100WBC Sodium (135-145) mmol/L Potassium (3.3-5.1) mmol/L Chloride (96-108) mmol/L Carbon Dioxide (22-29) mmol/L Anion Gap (12-20) BUN (9-16) mg/dL Creatinine (0.5-1.4) mg/dL Estim Creat Clear Calc Estimated GFR Random Glucose (60-115) mg/dL Calcium 9.0 (8.4-10.2) mg/dL Magnesium (1.6-2.6) mg/dL Total Bilirubin (0.0-1.0) mg/dL Direct Bilirubin (0.0-0.5) mg/dL AST (5-37) U/L ALT (0-40) U/L Alkaline Phosphatase (39-117) U/L Total Creatine Kinase (38-174) U/L B-Natriuretic Peptide (<100) pg/mL Total Protein (6.5-8.0) g/dL Albumin (3.5-5.0) g/dL Lipase (8-78) U/L Urine Color YELLOW Urine Appearance HAZY Urine pH 7.0 (5.0-8.0) Ur Specific [place] 1.020 (1.005-1.025) Urine Protein NEG (NEG-TRACE) MG/DL Urine Glucose (UA) NEG (NEG) MG/DL Urine Ketones NEG (NEG) MG/DL Urine Blood NEG (NEG) Urine Nitrite NEG (NEG) Ur Leukocyte Esterase NEG (NEG) Discharge Plan Discharge Clinical Impression: Lower extremity edema, Myalgia Patient Disposition: Home, Self-Care Instructions: Leg Edema (ED), Musculoskeletal Pain (ED) Additional Instructions: return to ED for any worsening symptoms or concerns labs normal US no blood clot if lyme test is positive we will call you Prescriptions: New furosemide [Lasix] 20 mg tablet 20 mg PO DAILY 3 Days Qty: 3 0RF cyclobenzaprine 10 mg tablet 10 mg PO TID PRN (Reason: muscle spasm) Qty: 20 0RF potassium chloride 10 mEq tablet extended release 10 meq PO DAILY Qty: 4 0RF No Action levofloxacin 500 mg tablet 500 mg PO DAILY 10 Days Qty: 10 0RF cyclobenzaprine 5 mg tablet 5 mg PO TID PRN (Reason: muscle spasm) Qty: 10 0RF doxycycline hyclate 100 mg tablet 100 mg PO BID 10 Days Qty: 20 0RF cyclobenzaprine 10 mg tablet 10 mg PO Q8H Qty: 10 0RF ibuprofen 800 mg tablet 800 mg PO Q8H PRN (Reason: pain) Qty: 14 0RF acetaminophen [Tylenol Extra Strength] 500 mg tablet 1,000 mg PO QID PRN (Reason: fever or pain) Qty: 14 0RF cyclobenzaprine 10 mg tablet 10 mg PO TID Qty: 10 0RF naproxen [Naprosyn] 500 mg tablet 500 mg PO BID Qty: 20 0RF Stand Alone Forms: Work/School Release
[2022-03-01] MEDS: diazePAM 2 MG TABLET 5 MG PO (08:15)
[2022-03-01 08:18] LABS: MANUAL DIFF FLAG NO
[2022-03-01 08:21] LABS: Basophils Percent Auto 0.2 % (0-2); Eosinophils Absolute Auto 0.1 X10*3/uL (0.0-0.4); Eosinophils Percent Auto 2.3 % (0-4); Hematocrit 47.3 % (42.0-52.0); Hemoglobin 15.8 g/dl (14.0-18.0); Imm Gran Abs Auto 0.01 X10*3/uL (0.00-0.03); Imm Gran Pct Auto 0.2 % (0.0-0.4); Lymphocytes Absolute Auto 1.5 X10*3/uL (1.2-4.9); Lymphocytes Percent Auto 31.2 % (20-40); Mean Corpuscular HGB Conc 33.4 g/dl (31.0-36.0); Mean Corpuscular Volume 86.8 fL (80.0-98.0); Mean Platelet Volume 10.3 fL (9.4-12.4); Monocytes Absolute Auto 0.4 X10*3/uL (0.1-1.2); Monocytes Percent Auto 7.8 % (2-11); Neutrophils Absolute Auto 2.8 x10*3/uL (2.0-8.3); Neutrophils Percent Auto 58.3 % (45-73); Platelet Count 187 X10*3/uL (160-400); Red Blood Count 5.45 X10*6/uL (4.60-5.80); Red Cell Distribution Width 12.6 % (11.0-16.0); White Blood Count 4.8 X10*3/uL (4.8-10.8)
[2022-03-01 08:44] LABS: Alanine Aminotransferase 109 U/L (0-40); Albumin Level 4.5 g/dL (3.5-5.0); Alkaline Phosphatase 75 U/L (39-117); Anion Gap 11 (12-20); Aspartate Amino Transferase 56 U/L (5-37); B Type Natriuretic Peptide < 10 pg/mL (<100); Bilirubin Direct 0.3 mg/dL (0.0-0.5); Bilirubin Total 0.8 mg/dL (0.0-1.0); Blood Urea Nitrogen 11 mg/dL (9-16); Carbon Dioxide 30 mmol/L (22-29); Chloride 103 mmol/L (96-108); Creatinine Clr Calc Pharmacy 174.3; Estimated Glomerular Filt Rate > 60; Glucose Random 83 mg/dL (60-115); Lipase 50 U/L (8-78); Magnesium 2.3 mg/dL (1.6-2.6); Potassium 4.1 mmol/L (3.3-5.1); Sodium 140 mmol/L (135-145); Total Protein 7.4 g/dL (6.5-8.0)
[2022-03-01 08:58] LABS: Appearance Urine HAZY; Color Urine YELLOW; Glucose Urine UA NEG (NEG); Leukocyte Esterase Urine NEG (NEG); Nitrite Urine NEG (NEG); Urine Blood NEG (NEG); Urine Ketones NEG (NEG); Urine Protein NEG (NEG-TRACE)
[2022-03-01 10:13] VITALS: BP 152/96; PULSE 61; RESP 16; O2SAT 97
[2022-03-03 05:22] LABS: Lyme Abs Screen <0.90 index
== END 2022-03-01 10:24 | disposition home or self-care (01) ==
PROVIDERS: Emergency Provider Emergency Medicine
DX: R60.0 Localized edema (principal); M79.10 Myalgia, unspecified site; I10 Essential (primary) hypertension; Z79.899 Other long term (current) drug therapy
CPT/HCPCS: 36415; 80048; 80076; 81003; 82310; 82550; 83690; 83735; 83880; 85025; 86617; 86618; 93970; 99283; 99284

== ENCOUNTER 2022-11-22 09:44 | Outpatient (REF) | payer MEDICAID, SELFPAY ==
--- NOTE | ~2022-11-22 | XR_ITS ---
EXAMINATION: XR CERVICAL SPINE CLINICAL INFORMATION: Neck pain COMPARISON: None TECHNIQUE: 6 views of the cervical spine, inclusive of flexion and extension views, were obtained. FINDINGS: There is mild straightening of cervical lordosis. The vertebral heights, alignment and disc heights are normal. The neural foramina are patent bilaterally. No visible acute fracture, dislocation or subluxation seen. The prevertebral soft tissues are normal. XR/XR cervical spine 5V IMPRESSION: Mild straightening of cervical lordosis likely spasm. No visible acute fracture, dislocation or subluxation seen.
== END 2022-11-22 09:45 | disposition home or self-care (01) ==
LOC: HO.XRAY 09:44
PROVIDERS: PCP Nurse Practitioner Primary Care; Visit Provider Emergency Medicine
DX: M48.02 Spinal stenosis, cervical region (principal)
CPT/HCPCS: 72050

== ENCOUNTER 2023-04-05 12:13 | Emergency (ER) | payer MEDICAID, SELFPAY ==
--- NOTE | ~2023-04-05 | XR_ITS ---
EXAMINATION: XR CHEST CLINICAL INFORMATION: Chest pain. COMPARISON: 11/08/2016 TECHNIQUE: 2 views of the chest were obtained. FINDINGS: The lungs are well expanded. No focal consolidation. No pleural effusion. Cardiac silhouette is unchanged. XR/XR chest 2V IMPRESSION: No acute abnormality.
[2023-04-05 12:19] VITALS: BP 160/94; PULSE 97; RESP 18; TEMP 36.3; O2SAT 98; BMI 43.0
--- NOTE | 2023-04-05 12:19 | ED.GENADULT ---
HPI - General Adult General Chief complaint: Dyspnea Stated complaint: dizzy, SOB Time Seen by Provider: 04/05/23 13:23 Source: patient Mode of arrival: ambulatory Limitations: no limitations History of Present Illness HPI narrative: A 19-year-old male with history of hypertension on lisinopril, pre diabetes presents with symptoms of dizziness. Patient reports having felt significantly lightheaded while driving. He had no chest pain, shortness breath or palpitations. Patient denies a history of having such symptoms. Symptoms are so severe he decided to come to the hospital. He is asymptomatic at this time. Patient has been eating and drinking appropriately. There is no clear relieving or exacerbating features. Was associated with a sensation of anxiety and panic. Patient denies a significant history of anxiety. Symptoms are new in onset lasted 1 hour. Patient has had no recent surgery, no history of PE or DVT, no family history of sudden cardiac or pulmonary embolus or clotting disorder. Patient did go to [place] recently the flight is approximately 4 hours long. Related Data Previous Rx's Medication Instructions Recorded levofloxacin 500 mg tablet 500 mg PO DAILY 10 days #10 tabs 11/06/20 cyclobenzaprine 5 mg tablet 5 mg PO TID PRN muscle spasm #10 12/09/20 tabs acetaminophen 500 mg tablet 1,000 mg PO QID PRN fever or pain 03/23/21 (Tylenol Extra Strength) #14 tabs cyclobenzaprine 10 mg tablet 10 mg PO Q8H Muscle spasm #10 tabs 03/23/21 doxycycline hyclate 100 mg tablet 100 mg PO BID 10 days #20 tabs 03/23/21 ibuprofen 800 mg tablet 800 mg PO Q8H PRN pain #14 tabs 03/23/21 cyclobenzaprine 10 mg tablet 10 mg PO TID #10 tabs 08/03/21 naproxen 500 mg tablet (Naprosyn) 500 mg PO BID #20 tabs 08/03/21 cyclobenzaprine 10 mg tablet 10 mg PO TID PRN muscle spasm #20 03/01/22 tabs furosemide 20 mg tablet (Lasix) 20 mg PO DAILY 3 days #3 tabs 03/01/22 potassium chloride 10 mEq 10 meq PO DAILY #4 tabs 03/01/22 tablet,extended release Allergies Allergy/AdvReac Type Severity Reaction Status Date / Time minerals [From Enviro Stress] Allergy Itchy Eyes Verified 04/05/23 12:19 pollen extracts Allergy Itchy Eyes Verified 04/05/23 12:19 vitamin B complex and C Allergy Itchy Eyes Verified 04/05/23 12:19 [From Enviro Stress] vitamin E (d-alpha Allergy Itchy Eyes Verified 04/05/23 12:19 tocopherol) [From Enviro Stress] Review of Systems Review of Systems: CONSTITUTIONAL: Denies weight loss, fever and chills. HEENT: Denies changes in vision and hearing. RESPIRATORY: Denies SOB and cough. CV: Denies palpitations no CP. GI: Denies abdominal pain, nausea, vomiting and diarrhea. : Denies dysuria and urinary frequency. MSK: Denies myalgia and joint pain. SKIN: Denies rash and pruritus. NEUROLOGICAL: Denies headache and syncope. PSYCHIATRIC: Denies recent changes in mood. Denies anxiety and depression. All other ROS are negative unless in HPI PMFSH Past Medical History Medical History HTN (hypertension) Pre-diabetes Social History Social History Alcohol intake: current Alcohol intake frequency: a few times a week Alcohol type: beer and wine Patient Tobacco Use Status: Never used Tobacco Smoked in Last 30 Days: No Use of substances other than those prescribed or required for medical reasons: No Advance Directives: No Physical Exam ED Vital Signs: Vital Signs - 24 hr 04/05/23 12:19 04/05/23 13:05 Temperature 97.3 F 98.2 F Pulse Rate 97 106 H Respiratory Rate 18 18 Blood Pressure 160/94 H 150/85 H Pulse Oximetry 98 97 Oxygen Delivery Method Room Air Room Air BMI result Body Mass Index 43.0 GEN: Well developed, no acute distress, alert, oriented HEENT: Normocephalic, atraumatic, normal external ears, nose appears normal, no oropharyngeal edema or exudates Eyes: Normal to appearance Neck: Supple, no lymphadenopathy Respiratory: Talks in complete sentences, no respiratory distress, clear to auscultation bilaterally Cardiovascular: Regular rate and rhythm, no murmurs rubs or gallops Abdomen: Soft, nontender, nondistended, no guarding, no rebound Back: No CVA tenderness Extremities: No clubbing cyanosis or edema Neurologic: No focal neurologic deficits, cranial nerves 2-12 intact, strength is 5/5 bilaterally Skin: No rash Course Course Course Narrative: This is an RME: Additional HPI, ROS, PE not included below will be deferred to primary provider. This is a [id number]-uco-male, with a medical history of hypertension, presenting to the emergency department with complaints of dizziness and shortness of breath x 1 hour. He states that he felt these symptoms developed on our go as he was eating a tuna fish sandwich. No history of tuna allergies. He endorses some chest pain that radiates into his left back. No abdominal pain, nausea, vomiting or diarrhea. VSS Reevaluation(s) Reevaluation #1: The workup is complete. Patient's lab tests show no significant acute abnormalities including no evidence of anemia, significant electrolyte abnormality. Cardiac enzymes are negative. EKG is nonischemic in no evidence of cardiac dysrhythmia. He has been a compliance monitor without further evidence of cardiac dysrhythmia. Will discharge patient with referral to Cardiology. Time: 14:34 Medical Decision Making Medical Decision Making MDM Narrative: 27-year-old male with history of hypertension, pre diabetes presents with lightheadedness. He did not lose consciousness. He denies any additional symptoms. He is asymptomatic currently. Patient's blood pressure is slightly elevated. Does take lisinopril for this. Patient has been informed to follow-up with his primary care doctor for medication adjustment. Differential diagnosis however could include cardiac arrhythmia, dehydration, electrolyte abnormality, anemia, cardiac. EKG done upon arrival did not show any significant cardiac dysrhythmia or cardiac ischemia. Patient be placed on a compliance monitor, routine laboratory analysis to rule out the above differential diagnoses. Patient's PERC score is 0. He does not warrant any imaging study or a D-dimer at this time. Patient will likely be able to be discharged however, should his symptoms recur or any a significant abnormal findings, patient may warrant hospitalization. Differential Diagnosis Differential Diagnoses: The differential diagnosis associated with the presentation includes (See above see above) Admission/Observation Consideration of admission/observation: Escalation of care including admission/observation considered Lab Data [facility] Lab Attestation statement: I reviewed the patient's lab results. 04/05/23 12:40 04/05/23 12:40 Labs: Lab Results 04/05/23 04/05/2304/05/23 Range/Units 12:40 12:40 12:40 WBC 6.4 (4.8-10.8) X10*3/uL RBC 5.34 (4.60-5.80) X10*6/uL Hgb 15.9 (14.0-18.0) g/dl Hct 46.6 (42.0-52.0) % MCV 87.3 (80.0-98.0) fL MCH 29.8 (27.0-33.0) pg MCHC 34.1 (31.0-36.0) g/dl RDW 13.2 (11.0-16.0) % Plt Count 177 (160-400) X10*3/uL MPV 9.9 (9.4-12.4) fL Immature Gran % (Auto) 0.3 (0.0-0.4) % Neut % (Auto) 65.5 (45-73) % Lymph % (Auto) 26.3 (20-40) % [place] % (Auto) 5.9 (2-11) % Eos % (Auto) 1.7 (0-4) % Baso % (Auto) 0.3 (0-2) % Lymph # (Auto) 1.7 (1.2-4.9) X10*3/uL [place] # (Auto) 0.4 (0.1-1.2) X10*3/uL Eos # (Auto) 0.1 (0.0-0.4) X10*3/uL Baso # (Auto) 0.0 (0.0-0.2) X10*3/uL Abs Immat Gran (auto) 0.02 (0.00-0.03) X10*3/uL Absolute Neuts (auto) 4.2 (2.0-8.3) x10*3/uL Absolute Nucleated RBC 0.000 (0.0-0.012) X10*3/uL Nucleated RBC % (auto) 0.0 (0.0-0.2) /100WBC Sodium 135 (135-145) mmol/L Potassium 3.5 (3.3-5.1) mmol/L Chloride 101 (96-108) mmol/L Carbon Dioxide 19 L (22-29) mmol/L Anion Gap 19 (12-20) BUN 10 (9-16) mg/dL Creatinine 0.92 (0.5-1.4) mg/dL Estim Creat Clear Calc 186.2 Estimated GFR > 60 Random Glucose 135 H (60-115) mg/dL Calcium 8.7 (8.4-10.2) mg/dL Total Bilirubin 0.6 (0.0-1.0) mg/dL Direct Bilirubin 0.1 (0.0-0.5) mg/dL AST 56 H (5-37) U/L ALT 102 H (0-40) U/L Alkaline Phosphatase 99 (39-117) U/L Troponin I High Sens 4.4 (<3.5-35.0) ng/L Total Protein 7.4 (6.5-8.0) g/dL Albumin 3.9 (3.5-5.0) g/dL COVID-19 ([facility]) (Negative) COVID-19 Clin Com 04/05/23 Range/Units 12:40 WBC (4.8-10.8) X10*3/uL RBC (4.60-5.80) X10*6/uL Hgb (14.0-18.0) g/dl Hct (42.0-52.0) % MCV (80.0-98.0) fL MCH (27.0-33.0) pg MCHC (31.0-36.0) g/dl RDW (11.0-16.0) % Plt Count (160-400) X10*3/uL MPV (9.4-12.4) fL Immature Gran % (Auto) (0.0-0.4) % Neut % (Auto) (45-73) % Lymph % (Auto) (20-40) % [place] % (Auto) (2-11) % Eos % (Auto) (0-4) % Baso % (Auto) (0-2) % Lymph # (Auto) (1.2-4.9) X10*3/uL [place] # (Auto) (0.1-1.2) X10*3/uL Eos # (Auto) (0.0-0.4) X10*3/uL Baso # (Auto) (0.0-0.2) X10*3/uL Abs Immat Gran (auto) (0.00-0.03) X10*3/uL Absolute Neuts (auto) (2.0-8.3) x10*3/uL Absolute Nucleated RBC (0.0-0.012) X10*3/uL Nucleated RBC % (auto) (0.0-0.2) /100WBC Sodium (135-145) mmol/L Potassium (3.3-5.1) mmol/L Chloride (96-108) mmol/L Carbon Dioxide (22-29) mmol/L Anion Gap (12-20) BUN (9-16) mg/dL Creatinine (0.5-1.4) mg/dL Estim Creat Clear Calc Estimated GFR Random Glucose (60-115) mg/dL Calcium (8.4-10.2) mg/dL Total Bilirubin (0.0-1.0) mg/dL Direct Bilirubin (0.0-0.5) mg/dL AST (5-37) U/L ALT (0-40) U/L Alkaline Phosphatase (39-117) U/L Troponin I High Sens (<3.5-35.0) ng/L Total Protein (6.5-8.0) g/dL Albumin (3.5-5.0) g/dL COVID-19 ([facility]) Negative (Negative) COVID-19 Clin Com See Note Independent Interpretation I performed an independent interpretation of an: EKG (Normal sinus rhythm heart rate 98, nonspecific ST T wave changes, early repolarization, no significant changes since March 03, 2017) and Plain X-Ray (Chest: No acute cardiopulmonary disease) Tests considered The following testing was considered but not selected: CT chest Chronic Conditions Patient?s care impacted by: Diabetes and Hypertension Discharge Plan Discharge Clinical Impression: Dizziness, Hypertension, Pre-diabetes Patient Disposition: Home, Self-Care Instructions: Heart Healthy Diet (ED), How to Take a Blood Pressure (ED), DASH Eating Plan (ED), Hypertension (ED), Near Syncope (ED), Lightheadedness (ED), Dizziness (ED), Prediabetes (ED) Prescriptions: No Action levofloxacin 500 mg tablet 500 mg PO DAILY 10 Days Qty: 10 0RF cyclobenzaprine 5 mg tablet 5 mg PO TID PRN (Reason: muscle spasm) Qty: 10 0RF doxycycline hyclate 100 mg tablet 100 mg PO BID 10 Days Qty: 20 0RF cyclobenzaprine 10 mg tablet 10 mg PO Q8H Qty: 10 0RF ibuprofen 800 mg tablet 800 mg PO Q8H PRN (Reason: pain) Qty: 14 0RF acetaminophen [Tylenol Extra Strength] 500 mg tablet 1,000 mg PO QID PRN (Reason: fever or pain) Qty: 14 0RF cyclobenzaprine 10 mg tablet 10 mg PO TID Qty: 10 0RF naproxen [Naprosyn] 500 mg tablet 500 mg PO BID Qty: 20 0RF furosemide [Lasix] 20 mg tablet 20 mg PO DAILY 3 Days Qty: 3 0RF cyclobenzaprine 10 mg tablet 10 mg PO TID PRN (Reason: muscle spasm) Qty: 20 0RF potassium chloride 10 mEq tablet extended release 10 meq PO DAILY Qty: 4 0RF Referrals: Fer Quan MD [Physician] -
--- NOTE | 2023-04-05 12:23 | ECG_ITS ---
Test Reason : dizziness Blood Pressure : / mmHG Vent. Rate : 098 BPM Atrial Rate : 098 BPM P-R Int : 152 ms QRS Dur : 100 ms QT Int : 356 ms P-R-T Axes : 032 000 007 degrees QTc Int : 454 ms Normal sinus rhythm Normal ECG When compared with ECG of 03-MAR-2017 12:12, No significant change was found Referred By: Carmita Woods Electronically Signed By:Fer Quan
[2023-04-05 12:45] LABS: MANUAL DIFF FLAG NO
[2023-04-05 12:47] LABS: Basophils Percent Auto 0.3 % (0-2); Eosinophils Absolute Auto 0.1 X10*3/uL (0.0-0.4); Eosinophils Percent Auto 1.7 % (0-4); Hematocrit 46.6 % (42.0-52.0); Hemoglobin 15.9 g/dl (14.0-18.0); Imm Gran Abs Auto 0.02 X10*3/uL (0.00-0.03); Imm Gran Pct Auto 0.3 % (0.0-0.4); Lymphocytes Absolute Auto 1.7 X10*3/uL (1.2-4.9); Lymphocytes Percent Auto 26.3 % (20-40); Mean Corpuscular HGB Conc 34.1 g/dl (31.0-36.0); Mean Corpuscular Hemoglobin 29.8 pg (27.0-33.0); Mean Corpuscular Volume 87.3 fL (80.0-98.0); Mean Platelet Volume 9.9 fL (9.4-12.4); Monocytes Absolute Auto 0.4 X10*3/uL (0.1-1.2); Monocytes Percent Auto 5.9 % (2-11); Neutrophils Absolute Auto 4.2 x10*3/uL (2.0-8.3); Neutrophils Percent Auto 65.5 % (45-73); Platelet Count 177 X10*3/uL (160-400); Red Blood Count 5.34 X10*6/uL (4.60-5.80); Red Cell Distribution Width 13.2 % (11.0-16.0); White Blood Count 6.4 X10*3/uL (4.8-10.8)
[2023-04-05 13:01] LABS: COVID-19 Test Negative (Negative); IDNOW Serial# 08D9AD1C
[2023-04-05 13:05] VITALS: BP 150/85; PULSE 106; RESP 18; TEMP 36.8; O2SAT 97
--- NOTE | 2023-04-05 13:08 | PC.NURSE ---
Alert and oriented, arrived form home complaining of sob. Denies chest pain, headache, or dizziness right now. States earlier was dizzy and sob, unsure if it was a panic attack that caused his symptoms. denies any stressful situation this am. BP elevated- states takes bp meds and has not missed any doses. Stats hx of stomach issues- unsure exactly what but takes medications for gerd. Denies n/v/d. States at this time all symptoms have resolved. 96% on RA
[2023-04-05 13:56] LABS: Alanine Aminotransferase 102 U/L (0-40); Albumin Level 3.9 g/dL (3.5-5.0); Alkaline Phosphatase 99 U/L (39-117); Anion Gap 19 (12-20); Aspartate Amino Transferase 56 U/L (5-37); Bilirubin Direct 0.1 mg/dL (0.0-0.5); Bilirubin Total 0.6 mg/dL (0.0-1.0); Blood Urea Nitrogen 10 mg/dL (9-16); Calcium 8.7 mg/dL (8.4-10.2); Carbon Dioxide 19 mmol/L (22-29); Chloride 101 mmol/L (96-108); Creatinine Clr Calc Pharmacy 186.2; Estimated Glomerular Filt Rate > 60; Glucose Random 135 mg/dL (60-115); Potassium 3.5 mmol/L (3.3-5.1); Sodium 135 mmol/L (135-145); Total Protein 7.4 g/dL (6.5-8.0)
[2023-04-05 14:02] LABS: Troponin-I High Sensitivity 4.4 ng/L (<3.5-35.0)
--- NOTE | 2023-04-05 14:48 | PC.NURSE ---
Reviewed discharge instructions with patient who verbalized understanding.
== END 2023-04-05 14:50 | disposition home or self-care (01) ==
PROVIDERS: Physician Assistant Medical; Emergency Provider Emergency Medicine; PCP Nurse Practitioner Primary Care
DX: R42 Dizziness and giddiness (principal); I10 Essential (primary) hypertension; R73.03 Prediabetes; R06.02 Shortness of breath; Z20.822 Contact with and (suspected) exposure to COVID-19
CPT/HCPCS: 36415; 71046; 80048; 80076; 84484; 85025; 87635; 93005; 99283; 99284

== ENCOUNTER → 2023-04-05 12:23 | Outpatient (BNV) | payer MEDICAID, SELFPAY | PROVIDERS: Emergency Provider Emergency Medicine; PCP Nurse Practitioner Primary Care; Visit Provider Internal Medicine Cardiovascular Disease | DX: R42 Dizziness and giddiness (principal) | CPT/HCPCS: 93010 ==

== ENCOUNTER 2023-06-22 12:42 | Emergency (ER) | payer SELFPAY | END 2023-06-22 13:13 | disposition left against medical advice (07) | PROVIDERS: Emergency Provider Emergency Medicine; PCP Nurse Practitioner Primary Care | DX: K08.89 Other specified disorders of teeth and supporting structures (principal); I10 Essential (primary) hypertension; R73.03 Prediabetes ==

== ENCOUNTER 2023-06-25 09:21 | Emergency (ER) | payer SELFPAY ==
[2023-06-25 09:29] VITALS: BP 155/83; PULSE 80; RESP 16; TEMP 36.6; O2SAT 96; BMI 41.1
--- NOTE | 2023-06-25 11:18 | ED.DENTAL ---
HPI - Dental/Oral General Chief complaint: Dental/Oral Stated complaint: dental pain Time Seen by Provider: 06/25/23 11:18 Source: patient and RN notes reviewed Mode of arrival: ambulatory Limitations: no limitations History of Present Illness HPI Narrative: This is a 27-year-old male, with a past medical history of hypertension, presenting to the emergency department with complaints of lower dental pain x 5 days. Patient reports that he suddenly developed dental pain 5 days ago. He states that the pain is constant and worsens with palpation. He denies any fevers or chills. He states that he has veneers that were placed in October. He called his dentist and was told to come to the emergency department to be treated with antibiotics. patient has a follow-up with his dentist on Sunday. He has been taking ibuprofen and Tylenol as needed for his pain which has provided him with some relief. No other complaints or concerns at this time. MD Complaint: tooth pain Location: Tooth # (24, 25) Onset (ago): day(s) Duration: constant Severity: severe Relieving factors: nothing Exacerbating factors: nothing Treatment prior to arrival: none Related Data Previous Rx's Medication Instructions Recorded levofloxacin 500 mg tablet 500 mg PO DAILY 10 days #10 tabs 11/06/20 cyclobenzaprine 5 mg tablet 5 mg PO TID PRN muscle spasm #10 12/09/20 tabs acetaminophen 500 mg tablet 1,000 mg (2 x 500 mg) PO QID PRN 03/23/21 (Tylenol Extra Strength) fever or pain #14 tabs cyclobenzaprine 10 mg tablet 10 mg PO Q8H Muscle spasm #10 tabs 03/23/21 doxycycline hyclate 100 mg tablet 100 mg PO BID 10 days #20 tabs 03/23/21 ibuprofen 800 mg tablet 800 mg PO Q8H PRN pain #14 tabs 03/23/21 cyclobenzaprine 10 mg tablet 10 mg PO TID #10 tabs 08/03/21 naproxen 500 mg tablet (Naprosyn) 500 mg PO BID #20 tabs 08/03/21 cyclobenzaprine 10 mg tablet 10 mg PO TID PRN muscle spasm #20 03/01/22 tabs furosemide 20 mg tablet (Lasix) 20 mg PO DAILY 3 days #3 tabs 03/01/22 potassium chloride 10 mEq 10 meq PO DAILY #4 tabs 03/01/22 tablet,extended release amoxicillin 875 mg-potassium 1 tab PO BID 7 days #14 tabs 06/25/23 clavulanate 125 mg tablet Allergies Allergy/AdvReac Type Severity Reaction Status Date / Time minerals [From Enviro Stress] Allergy Itchy Eyes Verified 04/05/23 12:19 pollen extracts Allergy Itchy Eyes Verified 04/05/23 12:19 vitamin B complex and C Allergy Itchy Eyes Verified 04/05/23 12:19 [From Enviro Stress] vitamin E (d-alpha Allergy Itchy Eyes Verified 04/05/23 12:19 tocopherol) [From Enviro Stress] Review of Systems Review of Systems: Yes all other systems are reviewed and are negative Constitutional: Constitutional: Reports as per [facility] Past Medical History Attestation statement: The following information was validated with the patient. Medical History HTN (hypertension) Pre-diabetes Social History Social History Alcohol intake: current Alcohol intake frequency: a few times a week Alcohol type: beer and wine Patient Tobacco Use Status: Never used Tobacco Advance Directives: No Physical Exam Vital Signs: Vital Signs: Last Vital Signs Temp 97.8 F 06/25/23 09:29 Pulse 80 06/25/23 09:29 Resp 16 06/25/23 09:29 BP 155/83 H 06/25/23 09:29 Pulse Ox 96 06/25/23 09:29 O2 Del Method Room Air 06/25/23 09:29 BMI result Body Mass Index 41.1 Const: General: cooperative, comfortable and no acute distress Orientation/consciousness: patient oriented x3 Limitations: no limitations HEENT: Other: Teeth numbers 24 and 25 with tenderness to palpation, no surrounding gingival erythema or edema. No fluctuance, no evidence of dental abscess. Head: Yes normal to inspection, Yes normocephalic and Yes atraumatic Ears: hearing grossly normal bilaterally General nose exam: Normal external nose present Face and sinus: Yes normal facial exam Mouth: Normal oral and palatal mucosa present, oropharynx normal and moist mucous membranes Teeth and gingiva: other Throat: Yes posterior oropharynx normal and Yes uvula midline Eyes: General: appearance normal, both eyes and all related structures Eyelids: Yes eyelids normal Conjunctivae: conjunctivae normal Sclerae: sclerae normal Pupils: Equal, round and reactive pupils present EOM: EOMs intact bilaterally Neck: Neck: Yes normal visual inspection, Yes full ROM and Yes no lymphadenopathy Lymphatic: no lymphadenopathy noted Chest: Chest palpation & inspection: normal inspection of the chest Resp: Effort & Inspection: normal respiratory effort and able to speak in complete sentences Auscultation: clear to auscultation bilaterally, no crackles, no rales, no rhonchi and no wheezes Cardio: Rate: regular rate Rhythm: regular rhythm Heart sounds: S1 normal heart sound present and S2 normal heart sound present GI: Inspection: Yes normal to inspection Skin: General skin exam: no rashes or lesions noted Trauma: no lacerations or abrasions Wounds: no wounds Neuro: General: patient oriented x3 and moves all extremities Cranial nerves: Yes Equal, round and reactive pupils present Extrem: General: Yes normal to inspection Right upper extremity: normal to inspection Left upper extremity: normal to inspection Right lower extremity: normal to inspection Left lower extremity: normal to inspection Medical Decision Making Medical Decision Making MDM Narrative: 27-year-old male presenting to the emergency department for evaluation of lower dental pain x5 days. On arrival, patient mildly hypertensive at 155/83, likely due to pain. On examination, patient has tenderness to palpation along tooth number 24 and 25 without any evidence of dental abscess. Patient spoke to his dentist to recommends antibiotics and has a follow-up with him on Sunday of this week. Patient will be treated with a course of Augmentin. Given return precautions. Patient understands and agrees with plan. Patient stable for discharge. Differential Diagnosis Differential Diagnoses: The differential diagnosis associated with the presentation includes Dental abscess, dental decay, dental fracture, facial pain Discharge Plan Discharge Clinical Impression: Pain, dental Patient Disposition: Home, Self-Care Instructions: Toothache (ED) Additional Instructions: You presented to the emergency department because of dental pain. There are no obvious abscesses on your exam however I am treating you with a course of antibiotics. Please take the entire course of the antibiotics even if your feeling better. It is critical that you follow-up with your dentist. Please continue taking ibuprofen and Tylenol as needed for pain. If any new or worsening symptoms occur including but not limited to difficulty swallowing, shortness breath, chest pain, please return for re-evaluation. Prescriptions: New amoxicillin-pot clavulanate 875-125 mg tablet 1 tab PO BID 7 Days Qty: 14 0RF No Action levofloxacin 500 mg tablet 500 mg PO DAILY 10 Days Qty: 10 0RF cyclobenzaprine 5 mg tablet 5 mg PO TID PRN (Reason: muscle spasm) Qty: 10 0RF doxycycline hyclate 100 mg tablet 100 mg PO BID 10 Days Qty: 20 0RF cyclobenzaprine 10 mg tablet 10 mg PO Q8H Qty: 10 0RF ibuprofen 800 mg tablet 800 mg PO Q8H PRN (Reason: pain) Qty: 14 0RF acetaminophen [Tylenol Extra Strength] 500 mg tablet 1,000 mg PO QID PRN (Reason: fever or pain) Qty: 14 0RF cyclobenzaprine 10 mg tablet 10 mg PO TID Qty: 10 0RF naproxen [Naprosyn] 500 mg tablet 500 mg PO BID Qty: 20 0RF furosemide [Lasix] 20 mg tablet 20 mg PO DAILY 3 Days Qty: 3 0RF cyclobenzaprine 10 mg tablet 10 mg PO TID PRN (Reason: muscle spasm) Qty: 20 0RF potassium chloride 10 mEq tablet extended release 10 meq PO DAILY Qty: 4 0RF
== END 2023-06-25 11:39 | disposition home or self-care (01) ==
PROVIDERS: Emergency Provider Emergency Medicine; PCP Nurse Practitioner Primary Care
DX: K08.89 Other specified disorders of teeth and supporting structures (principal); Z79.899 Other long term (current) drug therapy
CPT/HCPCS: 99282; 99283

== ENCOUNTER 2023-06-26 03:45 | Emergency (ER) | payer SELFPAY ==
[2023-06-26 03:54] VITALS: BP 161/75; PULSE 70; RESP 20; TEMP 36.7; O2SAT 98; BMI 41.1
--- NOTE | 2023-06-26 04:17 | ED.DENTAL ---
HPI - Dental/Oral General Chief complaint: Dental/Oral Stated complaint: teeth pain, swollen after antibiotics Time Seen by Provider: 06/26/23 04:09 Source: patient and old records reviewed Mode of arrival: ambulatory Limitations: no limitations History of Present Illness HPI Narrative: 27-year-old male came in for a dental pain for 5 days, patient was seen earlier in the emergency department for similar symptoms patient was described Augmentin patient took the 1st dose earlier, patient could not sleep last night despite taking multiple doses of Tylenol and ibuprofen, patient feels a pressure in his gum around the lower 2 central incisors. No fever, no chills. Related Data Previous Rx's Medication Instructions Recorded levofloxacin 500 mg tablet 500 mg PO DAILY 10 days #10 tabs 11/06/20 cyclobenzaprine 5 mg tablet 5 mg PO TID PRN muscle spasm #10 12/09/20 tabs acetaminophen 500 mg tablet 1,000 mg (2 x 500 mg) PO QID PRN 03/23/21 (Tylenol Extra Strength) fever or pain #14 tabs cyclobenzaprine 10 mg tablet 10 mg PO Q8H Muscle spasm #10 tabs 03/23/21 doxycycline hyclate 100 mg tablet 100 mg PO BID 10 days #20 tabs 03/23/21 ibuprofen 800 mg tablet 800 mg PO Q8H PRN pain #14 tabs 03/23/21 cyclobenzaprine 10 mg tablet 10 mg PO TID #10 tabs 08/03/21 naproxen 500 mg tablet (Naprosyn) 500 mg PO BID #20 tabs 08/03/21 cyclobenzaprine 10 mg tablet 10 mg PO TID PRN muscle spasm #20 03/01/22 tabs furosemide 20 mg tablet (Lasix) 20 mg PO DAILY 3 days #3 tabs 03/01/22 potassium chloride 10 mEq 10 meq PO DAILY #4 tabs 03/01/22 tablet,extended release amoxicillin 875 mg-potassium 1 tab PO BID 7 days #14 tabs 06/25/23 clavulanate 125 mg tablet oxycodone 5 mg tablet 5 mg PO TID PRN pain #10 tabs 06/26/23 Allergies Allergy/AdvReac Type Severity Reaction Status Date / Time minerals [From Enviro Stress] Allergy Itchy Eyes Verified 04/05/23 12:19 pollen extracts Allergy Itchy Eyes Verified 04/05/23 12:19 vitamin B complex and C Allergy Itchy Eyes Verified 04/05/23 12:19 [From Enviro Stress] vitamin E (d-alpha Allergy Itchy Eyes Verified 04/05/23 12:19 tocopherol) [From Enviro Stress] Review of Systems Review of Systems: All other systems are reviewed and are negative Constitutional: Reports as per HPI and Reports no additional constitutional complaints Eyes: Reports as per HPI and Reports no additional eye complaints Reports system reviewed and no additional complaints, except as documented Cardiovascular: Reports as per HPI and Reports no additional cardiovascular complaints Respiratory: Reports as per HPI and Reports no additional respiratory complaints Gastrointestinal: Reports as per HPI and Reports no additional gastrointestinal complaints Genitourinary: Reports no additional female genitourinary complaints Musculoskeletal: Reports no additional musculoskeletal complaints Skin/Breast: Reports system reviewed and no additional complaints, except as docu Psychiatric: Reports no additional psychiatric complaints Endocrine: Reports no additional endocrine complaints Hematologic/Lymphatic: Reports no additional hematologic/lymphatic complaints Allergic/Immunologic: Reports no additional allergic/immunologic complaints Reports system reviewed and no additional complaints, except as documented and Reports Abnormal speech present [facility] Past Medical History Medical History HTN (hypertension) Pre-diabetes Social History Social History Alcohol intake: current Alcohol intake frequency: a few times a week Alcohol type: beer and wine Patient Tobacco Use Status: Never used Tobacco Smoked in Last 30 Days: No Use of substances other than those prescribed or required for medical reasons: No Physical Exam Vital Signs: Vital Signs: Last Vital Signs Temp 98.0 F 06/26/23 03:54 Pulse 70 06/26/23 03:54 Resp 20 06/26/23 03:54 BP 161/75 H 06/26/23 03:54 Pulse Ox 98 06/26/23 03:54 O2 Del Method Room Air 06/26/23 03:54 BMI result Body Mass Index 41.1 Vital signs have been reviewed and appear to be correct. Blood pressure elevated. Heart rate normal. Respiratory rate normal. Temperature normal. Oxygen saturation normal. Appearance: Alert. Oriented X3. No acute distress. Head: Normal external exam. Normocephalic. Atraumatic. No Ortiz signs noted. No raccoon eyes noted. Mouth and dental exam, gum tenderness around tooth 24 and 25 lower center incisors, no fluctuation or abscess is appreciated , teeth are in good condition with no apparent decay. Mouth floor show no inflammation or swelling. Eyes: PERRLA. EOMI. Conjunctiva and sclera normal. Eyelids normal. ENT: TM's Normal. Pharynx normal. Uvula midline. Moist mucous membranes. No trismus noted. No drooling noted. No muffled voice noted. Neck: Normal inspection. Neck supple. FROM. No adenopathy. Thyroid Normal. No meningeal signs. No neck mass noted. CVS: Normal heart rate and rhythm. Heart sound normal. No murmurs noted. Pulses normal throughout. Respiratory: No respiratory distress. Painless inspiration. Breath sounds normal. No wheezes/rales/rhonchi noted. Chest nontender. No accessory muscle usage noted or decreased air movement noted. Abdomen: Soft and nontender. Bowel sounds normal in all 4 quadrants. No distention noted. No organomegaly noted. No visible injury noted. Back: No CVA tenderness. Full range of motion noted. Skin: Skin warm and dry. Normal skin color. Normal skin turgor. No rashes/lesions/lacerations noted. Extremities: No lower extremity edema. Extremities exhibit normal range of motion. Extremities nontender. Neuro: Oriented X 3. Cranial nerve exam: II-XII are grossly intact No motor deficit. No sensory deficit. Reflexes normal. Course Reevaluation(s) Reevaluation #1: Return to the ED for dental pain patient already started on antibiotic and have an appointment with his dentist in 4 days feels better with oxycodone. will prescribe more oxycodone for pain control. Time: 04:24 Medical Decision Making Differential Diagnosis Differential Diagnoses: The differential diagnosis associated with the presentation includes ( dental decay, dental abscess, gingivitis.) Discharge Plan Discharge Clinical Impression: Toothache Patient Disposition: Home, Self-Care Instructions: Toothache (ED) Prescriptions: New oxycodone 5 mg tablet 5 mg PO TID PRN (Reason: pain) Qty: 10 0RF Rx Instructions: Partial Fill upon patient request. No Action levofloxacin 500 mg tablet 500 mg PO DAILY 10 Days Qty: 10 0RF cyclobenzaprine 5 mg tablet 5 mg PO TID PRN (Reason: muscle spasm) Qty: 10 0RF doxycycline hyclate 100 mg tablet 100 mg PO BID 10 Days Qty: 20 0RF cyclobenzaprine 10 mg tablet 10 mg PO Q8H Qty: 10 0RF ibuprofen 800 mg tablet 800 mg PO Q8H PRN (Reason: pain) Qty: 14 0RF acetaminophen [Tylenol Extra Strength] 500 mg tablet 1,000 mg PO QID PRN (Reason: fever or pain) Qty: 14 0RF cyclobenzaprine 10 mg tablet 10 mg PO TID Qty: 10 0RF naproxen [Naprosyn] 500 mg tablet 500 mg PO BID Qty: 20 0RF furosemide [Lasix] 20 mg tablet 20 mg PO DAILY 3 Days Qty: 3 0RF cyclobenzaprine 10 mg tablet 10 mg PO TID PRN (Reason: muscle spasm) Qty: 20 0RF potassium chloride 10 mEq tablet extended release 10 meq PO DAILY Qty: 4 0RF amoxicillin-pot clavulanate 875-125 mg tablet 1 tab PO BID 7 Days Qty: 14 0RF
== END 2023-06-26 04:36 | disposition home or self-care (01) ==
LOC: HO.ED 04:34
PROVIDERS: Emergency Provider Emergency Medicine
DX: K08.89 Other specified disorders of teeth and supporting structures (principal); Z79.899 Other long term (current) drug therapy
CPT/HCPCS: 99283; 99284

== ENCOUNTER 2023-11-01 20:35 | Emergency (ER) | payer MEDICAID, SELFPAY | END 2023-11-01 22:12 | disposition left against medical advice (07) | PROVIDERS: Emergency Provider Emergency Medicine; PCP Nurse Practitioner Primary Care | DX: R10.2 Pelvic and perineal pain (principal); Z53.21 Procedure and treatment not carried out due to patient leaving prior to being seen by health care provider ==

== ENCOUNTER 2023-12-20 10:24 | Outpatient (REF) | payer MEDICAID, SELFPAY ==
[2023-12-20 11:49] LABS: Estimated Average Glucose 108 mg/dL; Hemoglobin A1c % 5.4 % (<6.0)
[2023-12-20 11:55] LABS: Alanine Aminotransferase 303 U/L (0-40); Albumin Level 4.1 g/dL (3.5-5.0); Alkaline Phosphatase 97 U/L (39-117); Anion Gap 12 (12-20); Aspartate Amino Transferase 250 U/L (5-37); Bilirubin Total 0.8 mg/dL (0.0-1.0); Blood Urea Nitrogen 9 mg/dL (9-16); Calcium 8.9 mg/dL (8.4-10.2); Carbon Dioxide 27 mmol/L (22-29); Chloride 105 mmol/L (96-108); Cholesterol 237 mg/dL (<200); Estimated Glomerular Filt Rate > 60; Glucose Random 102 mg/dL (60-115); HDL Cholesterol 40 mg/dL (>40); LDL Cholesterol Calculated 150 mg/dL (<100); Potassium 3.9 mmol/L (3.3-5.1); Sodium 140 mmol/L (135-145); Total Protein 7.4 g/dL (6.5-8.0); Triglycerides 235 mg/dL (<150)
[2023-12-20 12:08] LABS: Hepatitis A Antibody IgG Nonreactive (Nonreactive); ~Hepatitis A Antibody IgG 0.63 S/CO (0.00-0.99)
[2023-12-20 12:09] LABS: HBS Num1 1.31 mIU/mL (0-7.99); HBc Num1 0.11 S/CO (0.00-0.79); HBsAGNum1 0.35 S/CO (0.00-0.99); Hepatitis B Core Antibody Nonreactive (Nonreactive); Hepatitis B Surface Antigen Negative (Negative); ~HepC Num1 0.16 S/CO (0.00-0.79); ~Hepatitis B Surface Antibody NONREACTIVE (Nonreactive); ~Hepatitis C Antibody Nonreactive (Nonreactive)
[2023-12-20 12:11] LABS: TSH reflex Free T4 2.03 uIU/mL (0.32-4.0)
== END 2023-12-20 10:25 | disposition home or self-care (01) ==
LOC: HO.HHCL 10:24
PROVIDERS: Visit Provider Emergency Medicine
DX: I10 Essential (primary) hypertension (principal)
CPT/HCPCS: 36415; 80053; 80061; 83036; 84443; 86704; 86706; 86708; 86803; 87340

== ENCOUNTER 2024-01-09 08:51 | Outpatient (REF) | payer MEDICAID, SELFPAY ==
--- NOTE | ~2024-01-09 | US_ITS ---
EXAMINATION: US ABDOMEN COMPLETE CLINICAL INFORMATION: History of elevated liver enzymes, worsened on today's lab test results. COMPARISON: CT abdomen and pelvis 11/06/2020. Ultrasound abdomen 05/16/2017. Renal ultrasound 11/03/2016. TECHNIQUE: Real-time imaging of the abdominal viscera. FINDINGS: PANCREAS: The pancreas could not be seen as it was obscured by bowel gas. ABDOMINAL AORTA: The proximal, mid, and distal segments are normal in caliber. INFERIOR VENA CAVA: Visualized portions are normal. LIVER: The liver is enlarged measuring 19.5 cm in greatest length. The liver contour is normal. There is diffuse increased liver parenchymal echogenicity, consistent with hepatic steatosis. No focal hepatic lesion. There is no intrahepatic biliary duct dilatation seen. GALLBLADDER: Normal. The gallbladder is physiologically distended without evidence of stones, sludge, polyps, wall thickening or pericholecystic fluid. COMMON BILE DUCT: Not seen. RIGHT KIDNEY: Normal. No hydronephrosis. No renal calculi or focal parenchymal lesions. The kidney measures 11.4 cm in maximum dimension. LEFT KIDNEY: Normal. No hydronephrosis. No renal calculi or focal parenchymal lesions. The kidney measures 12.5 cm in maximum dimension. SPLEEN: The spleen is enlarged measuring 13.7 cm in maximum dimension. FREE FLUID: None. US/US abdomen complete IMPRESSION: Enlarged fatty liver with mild splenomegaly.
== END 2024-01-09 08:52 | disposition home or self-care (01) ==
LOC: HO.US 08:51
PROVIDERS: PCP Nurse Practitioner Primary Care; Visit Provider Emergency Medicine
DX: R74.8 Abnormal levels of other serum enzymes (principal)
CPT/HCPCS: 76700

== ENCOUNTER 2024-01-14 07:26 | Emergency (ER) | payer MEDICAID, SELFPAY ==
--- NOTE | 2024-01-14 | ECG_ITS ---
Test Reason : chest pain Blood Pressure : / mmHG Vent. Rate : 105 BPM Atrial Rate : 105 BPM P-R Int : 152 ms QRS Dur : 090 ms QT Int : 356 ms P-R-T Axes : 038 -05 032 degrees QTc Int : 470 ms Sinus tachycardia Otherwise normal ECG No significant changes when compared with the previous EKG of 05 april 2023 Referred By: Generic ED Physician Electronically Signed By:LAYC GREENE
--- NOTE | ~2024-01-14 | XR_ITS ---
EXAMINATION: XR CHEST CLINICAL INFORMATION: Chest pain COMPARISON: Chest radiograph from 04/05/2023 TECHNIQUE: Frontal view of the chest was obtained. FINDINGS: Bilateral low lung volumes. Slight elevation the right hemidiaphragm. Bibasilar atelectasis. No pneumothorax. Trachea is midline. Cardiac mediastinal silhouette is stable. No large pleural effusion. Osseous structures are intact. Soft tissues are unremarkable. XR/XR chest 1V IMPRESSION: 1. Bilateral low lung volumes. 2. Slight elevation the right hemidiaphragm. 3. Bibasilar atelectasis.
[2024-01-14 07:35] VITALS: BP 152/93; PULSE 107; RESP 18; TEMP 36; O2SAT 98; BMI 44.0
[2024-01-14 07:47] LABS: MANUAL DIFF FLAG NO
--- NOTE | 2024-01-14 07:47 | ED.CHESTPAIN ---
HPI - Chest Pain General Chief Complaint: Chest Pain Stated Complaint: Chest pain Time Seen by Provider: 01/14/24 07:45 Source: patient Mode of arrival: ambulatory Limitations: no limitations History of Present Illness HPI narrative: This is a 28 years old male presented to the emergency department complaining of chest pain and anxiety. He woke up at 06:00 complaining of chest pain with with no radiation no exertional symptoms no diaphoresis. He states that it feels very anxious as well. MD complaint: chest pain Onset (ago): hour(s) (2) Timing of current episode: now resolved Prior episodes: No Onset: during rest Pain location: substernal Pain radiation: none Severity: mild Quality: aching Relieving factors: nothing Exacerbating factors: nothing Context: recent illness Risk Factors Coronary artery disease risk factors: none Thoracic aortic dissection risk factors: none Related Data Previous Rx's ?Medication ?Instructions ?Recorded levofloxacin 500 mg tablet 500 mg PO DAILY 10 days #10 tabs 11/06/20 cyclobenzaprine 5 mg tablet 5 mg PO TID PRN muscle spasm #10 12/09/20 tabs acetaminophen 500 mg tablet 1,000 mg (2 x 500 mg) PO QID PRN 03/23/21 (Tylenol Extra Strength) fever or pain #14 tabs cyclobenzaprine 10 mg tablet 10 mg PO Q8H Muscle spasm #10 tabs 03/23/21 doxycycline hyclate 100 mg tablet 100 mg PO BID 10 days #20 tabs 03/23/21 ibuprofen 800 mg tablet 800 mg PO Q8H PRN pain #14 tabs 03/23/21 cyclobenzaprine 10 mg tablet 10 mg PO TID #10 tabs 08/03/21 naproxen 500 mg tablet (Naprosyn) 500 mg PO BID #20 tabs 08/03/21 cyclobenzaprine 10 mg tablet 10 mg PO TID PRN muscle spasm #20 03/01/22 tabs furosemide 20 mg tablet (Lasix) 20 mg PO DAILY 3 days #3 tabs 03/01/22 potassium chloride 10 mEq 10 meq PO DAILY #4 tabs 03/01/22 tablet,extended release amoxicillin 875 mg-potassium 1 tab PO BID 7 days #14 tabs 06/25/23 clavulanate 125 mg tablet oxycodone 5 mg tablet 5 mg PO TID PRN pain #10 tabs 06/26/23 Allergies Allergy/AdvReac Type Severity Reaction Status Date / Time minerals [From Enviro Stress] Allergy Itchy Eyes Verified 01/14/24 07:38 pollen extracts Allergy Itchy Eyes Verified 01/14/24 07:38 vitamin B complex and C Allergy Itchy Eyes Verified 01/14/24 07:38 [From Enviro Stress] vitamin E (d-alpha Allergy Itchy Eyes Verified 01/14/24 07:38 tocopherol) [From Enviro Stress] Review of Systems Constitutional: Constitutional: Reports no additional constitutional complaints ENT: Reports system reviewed and no additional complaints, except as documented Cardiovascular: Cardiovascular: Reports no additional cardiovascular complaints Psychiatric: Psychiatric: Reports anxiety [facility] Past Medical History [facility] Narrative: anxiety Medical History HTN (hypertension) Pre-diabetes Social History Social History Alcohol intake: current Alcohol intake frequency: a few times a week Alcohol type: beer and wine Patient Tobacco Use Status: Never used Tobacco Advance Directives: No Advance Directives Information Provided: Yes Do you have a plan to hurt others: No Plan Physical Exam Vital Signs: Vital Signs: Last Vital Signs Temp 0 F L 01/14/24 09:44 Pulse 99 01/14/24 09:44 Resp 18 01/14/24 09:44 BP 139/94 H 01/14/24 09:44 Pulse Ox 97 01/14/24 09:44 O2 Del Method Room Air 01/14/24 09:44 BMI result Body Mass Index 44.0 Patient is awake alert in not acute distress Const: General: cooperative Orientation/consciousness: patient oriented x3 Limitations: no limitations HEENT: Head: Yes normal to inspection Ears: hearing grossly normal bilaterally General nose exam: Normal external nose present Face and sinus: Yes normal facial exam Mouth: Normal oral and palatal mucosa present Teeth and gingiva: dentition normal Throat: Yes posterior oropharynx normal Neck: Neck: Yes normal visual inspection Thyroid: Thyroid normal Carotids: normal carotid upstroke Chest: Chest palpation & inspection: normal inspection of the chest Resp: Effort & Inspection: normal respiratory effort Auscultation: clear to auscultation bilaterally Cardio: Jugular venous distension: no JVD Rate: regular rate Rhythm: regular rhythm GI: Inspection: Yes normal to inspection Palpation (GI): Soft to palpation, not firm, nontender and no guarding Skin: General skin exam: no rashes or lesions noted, elasticity normal and turgor normal Lesions: no lesions Rashes: no rashes Trauma: no lacerations or abrasions Wounds: no wounds Neuro: General: patient oriented x3 Cranial nerves: Yes CN's II-XII intact bilaterally Cognition (Neuro): normal cognition Course Reevaluation(s) Reevaluation #1: Feels better asymptomatic Time: 09:14 Medications Administered Discontinued Medications Generic Name Dose Route Start Last Admin Trade Name Ortizq PRN Reason Stop Dose Admin Lorazepam 1 mg 01/14/24 07:50 01/14/24 09:02 Lorazepam 1 Mg Tablet PO 01/14/24 07:51 1 mg ONCE ONE Administration Medical Decision Making Medical Decision Making [facility] Narrative: Patient presented with the chest pain is very anxious we will get anyway EKG , troponin ,administer 1 mg of lorazepam Differential Diagnosis Differential Diagnoses: The differential diagnosis associated with the presentation includes ACS/pericarditis/atypical chest pain. Admission/Observation Consideration of admission/observation: Escalation of care including admission/observation considered Lab Data [facility] Lab Attestation statement: I reviewed the patient's lab results. 01/14/24 07:43 01/14/24 07:43 Labs: Lab Results 01/14/24 Range/Units 07:43 WBC 5.8 (4.8-10.8) X10*3/uL RBC 5.36 (4.60-5.80) X10*6/uL Hgb 16.2 (14.0-18.0) g/dl Hct 47.4 (42.0-52.0) % MCV 88.4 (80.0-98.0) fL MCH 30.2 (27.0-33.0) pg MCHC 34.2 (31.0-36.0) g/dl RDW 13.2 (11.0-16.0) % Plt Count 180 (160-400) X10*3/uL MPV 9.9 (9.4-12.4) fL Immature Gran % (Auto) 0.5 H (0.0-0.4) % Neut % (Auto) 63.3 (45-73) % Lymph % (Auto) 24.3 (20-40) % [place]ahan % (Auto) 8.2 (2-11) % Eos % (Auto) 3.4 (0-4) % Baso % (Auto) 0.3 (0-2) % Lymph # (Auto) 1.4 (1.2-4.9) X10*3/uL [place]ahan # (Auto) 0.5 (0.1-1.2) X10*3/uL Eos # (Auto) 0.2 (0.0-0.4) X10*3/uL Baso # (Auto) 0.0 (0.0-0.2) X10*3/uL Abs Immat Gran (auto) 0.03 (0.00-0.03) X10*3/uL Absolute Neuts (auto) 3.7 (2.0-8.3) x10*3/uL Absolute Nucleated RBC 0.000 (0.0-0.012) X10*3/uL Nucleated RBC % (auto) 0.0 (0.0-0.2) /100WBC Sodium 139 (135-145) mmol/L Potassium 3.6 (3.3-5.1) mmol/L Chloride 102 (96-108) mmol/L Carbon Dioxide 24 (22-29) mmol/L Anion Gap 17 (12-20) BUN 8 L (9-16) mg/dL Creatinine 0.87 (0.5-1.4) mg/dL Estim Creat Clear Calc 197.5 Estimated GFR > 60 Random Glucose 177 H (60-115) mg/dL Calcium 8.9 (8.4-10.2) mg/dL Total Bilirubin 0.6 (0.0-1.0) mg/dL AST 117 H (5-37) U/L ALT 182 H (0-40) U/L Alkaline Phosphatase 88 (39-117) U/L Troponin I High Sens 4.8 (<3.5-35.0) ng/L Total Protein 7.3 (6.5-8.0) g/dL Albumin 4.1 (3.5-5.0) g/dL Independent Interpretation I performed an independent interpretation of an: EKG and Plain X-Ray Radiology Impression Discussion of test interpretation with radiology: I have reviewed the radiologist's reading. Discharge Plan Discharge Clinical Impression: Chest pain Patient Disposition: Home, Self-Care Instructions: Chest Pain (DC) Prescriptions: No Action levofloxacin 500 mg tablet 500 mg PO DAILY 10 Days Qty: 10 0RF cyclobenzaprine 5 mg tablet 5 mg PO TID PRN (Reason: muscle spasm) Qty: 10 0RF doxycycline hyclate 100 mg tablet 100 mg PO BID 10 Days Qty: 20 0RF cyclobenzaprine 10 mg tablet 10 mg PO Q8H Qty: 10 0RF ibuprofen 800 mg tablet 800 mg PO Q8H PRN (Reason: pain) Qty: 14 0RF acetaminophen [Tylenol Extra Strength] 500 mg tablet 1,000 mg PO QID PRN (Reason: fever or pain) Qty: 14 0RF cyclobenzaprine 10 mg tablet 10 mg PO TID Qty: 10 0RF naproxen [Naprosyn] 500 mg tablet 500 mg PO BID Qty: 20 0RF furosemide [Lasix] 20 mg tablet 20 mg PO DAILY 3 Days Qty: 3 0RF cyclobenzaprine 10 mg tablet 10 mg PO TID PRN (Reason: muscle spasm) Qty: 20 0RF potassium chloride 10 mEq tablet extended release 10 meq PO DAILY Qty: 4 0RF amoxicillin-pot clavulanate 875-125 mg tablet 1 tab PO BID 7 Days Qty: 14 0RF oxycodone 5 mg tablet 5 mg PO TID PRN (Reason: pain) Qty: 10 0RF Rx Instructions: Partial Fill upon patient request. Referrals: Haylee Sánchez, RETAIL SELLING SPECIALIST [Primary Care Provider] - 2 days Interventions: ED Discharge Assessment Last Done: 01/14/24 09:44 Discharge Date/Time: 01/14/24 09:45 Print Language: Colombian
[2024-01-14 07:48] LABS: Basophils Percent Auto 0.3 % (0-2); Eosinophils Absolute Auto 0.2 X10*3/uL (0.0-0.4); Eosinophils Percent Auto 3.4 % (0-4); Hematocrit 47.4 % (42.0-52.0); Hemoglobin 16.2 g/dl (14.0-18.0); Imm Gran Abs Auto 0.03 X10*3/uL (0.00-0.03); Imm Gran Pct Auto 0.5 % (0.0-0.4); Lymphocytes Absolute Auto 1.4 X10*3/uL (1.2-4.9); Lymphocytes Percent Auto 24.3 % (20-40); Mean Corpuscular HGB Conc 34.2 g/dl (31.0-36.0); Mean Corpuscular Hemoglobin 30.2 pg (27.0-33.0); Mean Corpuscular Volume 88.4 fL (80.0-98.0); Mean Platelet Volume 9.9 fL (9.4-12.4); Monocytes Absolute Auto 0.5 X10*3/uL (0.1-1.2); Monocytes Percent Auto 8.2 % (2-11); Neutrophils Absolute Auto 3.7 x10*3/uL (2.0-8.3); Neutrophils Percent Auto 63.3 % (45-73); Platelet Count 180 X10*3/uL (160-400); Red Blood Count 5.36 X10*6/uL (4.60-5.80); Red Cell Distribution Width 13.2 % (11.0-16.0); White Blood Count 5.8 X10*3/uL (4.8-10.8)
[2024-01-14 08:46] LABS: Alanine Aminotransferase 182 U/L (0-40); Albumin Level 4.1 g/dL (3.5-5.0); Alkaline Phosphatase 88 U/L (39-117); Anion Gap 17 (12-20); Aspartate Amino Transferase 117 U/L (5-37); Bilirubin Total 0.6 mg/dL (0.0-1.0); Blood Urea Nitrogen 8 mg/dL (9-16); Calcium 8.9 mg/dL (8.4-10.2); Carbon Dioxide 24 mmol/L (22-29); Chloride 102 mmol/L (96-108); Creatinine Clr Calc Pharmacy 197.5; Estimated Glomerular Filt Rate > 60; Glucose Random 177 mg/dL (60-115); Potassium 3.6 mmol/L (3.3-5.1); Sodium 139 mmol/L (135-145); Total Protein 7.3 g/dL (6.5-8.0)
[2024-01-14 08:50] LABS: Troponin-I High Sensitivity 4.8 ng/L (<3.5-35.0)
[2024-01-14] MEDS: LORazepam 1 MG TABLET PO (09:02)
[2024-01-14 09:04] VITALS: BP 139/94; PULSE 103; RESP 18; O2SAT 97
[2024-01-14 09:44] VITALS: BP 139/94; PULSE 99; RESP 18; TEMP -17.7; TEMP 0; O2SAT 97
== END 2024-01-14 09:45 | disposition home or self-care (01) ==
PROVIDERS: Emergency Provider Emergency Medicine; PCP Nurse Practitioner Primary Care
DX: R07.89 Other chest pain (principal); Z79.899 Other long term (current) drug therapy
CPT/HCPCS: 36415; 71045; 80053; 84484; 85025; 93005; 99283

== ENCOUNTER → 2024-01-14 07:30 | Outpatient (BNV) | payer MEDICAID, SELFPAY | PROVIDERS: Emergency Provider Emergency Medicine; PCP Nurse Practitioner Primary Care; Visit Provider Internal Medicine | DX: R00.0 Tachycardia, unspecified (principal) | CPT/HCPCS: 93010 ==

== ENCOUNTER 2024-05-23 15:06 | Emergency (ER) | payer MEDICAID, SELFPAY ==
--- NOTE | 2024-05-23 15:09 | ECG_ITS ---
Test Reason : chest pain Blood Pressure : / mmHG Vent. Rate : 095 BPM Atrial Rate : 095 BPM P-R Int : 150 ms QRS Dur : 090 ms QT Int : 356 ms P-R-T Axes : 035 -01 020 degrees QTc Int : 447 ms Normal sinus rhythm Normal ECG When compared with ECG of 14-JAN-2024 07:30, No significant change was found Referred By: Zuri Moctezuma Electronically Signed By:FIONA MADDEN
== END 2024-05-23 16:46 | disposition left against medical advice (07) ==
PROVIDERS: Emergency Provider Emergency Medicine; PCP Nurse Practitioner Primary Care
DX: R07.9 Chest pain, unspecified (principal); R42 Dizziness and giddiness; I10 Essential (primary) hypertension; E78.5 Hyperlipidemia, unspecified; Z53.21 Procedure and treatment not carried out due to patient leaving prior to being seen by health care provider
CPT/HCPCS: 93005; 99281; 99282

== ENCOUNTER 2024-05-29 13:22 | Emergency (ER) | payer MEDICAID, SELFPAY ==
[2024-05-29 13:47] VITALS: BP 165/95; PULSE 114; RESP 18; TEMP 36; O2SAT 96; BMI 42.9
--- NOTE | 2024-05-29 13:53 | ED_ITS ---
HPI - General Adult General Chief complaint: Headache Stated complaint: Headache Source: patient Mode of arrival: ambulatory Limitations: no limitations History of Present Illness HPI narrative: Left without completion of treatment by ED provider Related Data Previous Rx's ?Medication ?Instructions ?Recorded levofloxacin 500 mg tablet 500 mg PO DAILY 10 days #10 tabs 11/06/20 cyclobenzaprine 5 mg tablet 5 mg PO TID PRN muscle spasm #10 12/09/20 tabs acetaminophen 500 mg tablet 1,000 mg (2 x 500 mg) PO QID PRN 03/23/21 (Tylenol Extra Strength) fever or pain #14 tabs cyclobenzaprine 10 mg tablet 10 mg PO Q8H Muscle spasm #10 tabs 03/23/21 doxycycline hyclate 100 mg tablet 100 mg PO BID 10 days #20 tabs 03/23/21 ibuprofen 800 mg tablet 800 mg PO Q8H PRN pain #14 tabs 03/23/21 cyclobenzaprine 10 mg tablet 10 mg PO TID #10 tabs 08/03/21 naproxen 500 mg tablet (Naprosyn) 500 mg PO BID #20 tabs 08/03/21 cyclobenzaprine 10 mg tablet 10 mg PO TID PRN muscle spasm #20 03/01/22 tabs furosemide 20 mg tablet (Lasix) 20 mg PO DAILY 3 days #3 tabs 03/01/22 potassium chloride 10 mEq 10 meq PO DAILY #4 tabs 03/01/22 tablet,extended release amoxicillin 875 mg-potassium 1 tab PO BID 7 days #14 tabs 06/25/23 clavulanate 125 mg tablet oxycodone 5 mg tablet 5 mg PO TID PRN pain #10 tabs 06/26/23 Allergies Allergy/AdvReac Type Severity Reaction Status Date / Time minerals [From Enviro Stress] Allergy Itchy Eyes Verified 05/29/24 13:50 pollen extracts Allergy Itchy Eyes Verified 05/29/24 13:50 vitamin B complex and C Allergy Itchy Eyes Verified 05/29/24 13:50 [From Enviro Stress] vitamin E (d-alpha Allergy Itchy Eyes Verified 05/29/24 13:50 tocopherol) [From Enviro Stress] [facility] Past Medical History Medical History HTN (hypertension) Pre-diabetes Social History Social History Alcohol intake: current Alcohol intake frequency: a few times a week Alcohol type: beer and wine Patient Tobacco Use Status: Never used Tobacco Advance Directives: No Advance Directives Information Provided: No Do you have a plan to hurt others: No Plan Physical Exam ED Vital Signs: Vital Signs - 24 hr 05/29/24 13:47 Temperature 96.8 F Pulse Rate 114 H Respiratory Rate 18 Blood Pressure 165/95 H Pulse Oximetry 96 Oxygen Delivery Method Room Air BMI result Body Mass Index 42.9 Course Course Course Narrative: RME: Done by JOCY Islas. 28-year-old male history of hypertension presents to ED for bilateral headache that began today. Patient denies any change in vision, chest pain, shortness of breath. Patient denies any trauma. Patient denies any slurred speech, facial droop, or paralysis of extremities. NIH score is 0. Negative photophobia. Negative nystagmus. Due to patient states new onset headache was sent for CT scan due to history of high blood pressure will do labs EKG. Medical Decision Making Lab Data 05/29/24 14:05 05/29/24 14:05 Labs: Lab Results 05/29/24 Range/Units 14:05 WBC 6.7 (4.8-10.8) X10*3/uL RBC 5.48 (4.60-5.80) X10*6/uL Hgb 17.2 (14.0-18.0) g/dl Hct 48.4 (42.0-52.0) % MCV 88.3 (80.0-98.0) fL MCH 31.4 (27.0-33.0) pg MCHC 35.5 (31.0-36.0) g/dl RDW 12.8 (11.0-16.0) % Plt Count 165 (160-400) X10*3/uL MPV 9.9 (9.4-12.4) fL Immature Gran % (Auto) 0.3 (0.0-0.4) % Neut % (Auto) 69.0 (45-73) % Lymph % (Auto) 21.4 (20-40) % [place] % (Auto) 6.0 (2-11) % Eos % (Auto) 2.7 (0-4) % Baso % (Auto) 0.6 (0-2) % Lymph # (Auto) 1.4 (1.2-4.9) X10*3/uL [place] # (Auto) 0.4 (0.1-1.2) X10*3/uL Eos # (Auto) 0.2 (0.0-0.4) X10*3/uL Baso # (Auto) 0.0 (0.0-0.2) X10*3/uL Abs Immat Gran (auto) 0.02 (0.00-0.03) X10*3/uL Absolute Neuts (auto) 4.6 (2.0-8.3) x10*3/uL Absolute Nucleated RBC 0.000 (0.0-0.012) X10*3/uL Nucleated RBC % (auto) 0.0 (0.0-0.2) /100WBC PT 12.6 (11.1-13.3) SEC INR 1.0 (0.9-1.1) APTT 29.6 (26.0-36.8) SEC Sodium 138 (135-145) mmol/L Potassium 3.8 (3.3-5.1) mmol/L Chloride 104 (96-108) mmol/L Carbon Dioxide 24 (22-29) mmol/L Anion Gap 14 (12-20) BUN 6 L (9-16) mg/dL Creatinine 1.11 (0.5-1.4) mg/dL Estim Creat Clear Calc 148.4 Estimated GFR > 60 Random Glucose 161 H (60-115) mg/dL Calcium 9.2 (8.4-10.2) mg/dL Total Bilirubin 0.8 (0.0-1.0) mg/dL AST 121 H (5-37) U/L ALT 177 H (0-40) U/L Alkaline Phosphatase 90 (39-117) U/L Troponin I High Sens 6.8 (<3.5-35.0) ng/L Total Protein 7.6 (6.5-8.0) g/dL Albumin 4.3 (3.5-5.0) g/dL Influenza Type A (PCR) NEGATIVE (Negative) Influenza Type B (PCR) NEGATIVE (Negative) RSV RNA Qual (PCR) NEGATIVE (Negative) SARS-CoV-2 RNA (RT-PCR) NEGATIVE (Negative) Discharge Plan Discharge Clinical Impression: Headache Patient Disposition: Left W/O Completing Treatment Prescriptions: No Action levofloxacin 500 mg tablet 500 mg PO DAILY 10 Days Qty: 10 0RF cyclobenzaprine 5 mg tablet 5 mg PO TID PRN (Reason: muscle spasm) Qty: 10 0RF doxycycline hyclate 100 mg tablet 100 mg PO BID 10 Days Qty: 20 0RF cyclobenzaprine 10 mg tablet 10 mg PO Q8H Qty: 10 0RF ibuprofen 800 mg tablet 800 mg PO Q8H PRN (Reason: pain) Qty: 14 0RF acetaminophen [Tylenol Extra Strength] 500 mg tablet 1,000 mg PO QID PRN (Reason: fever or pain) Qty: 14 0RF cyclobenzaprine 10 mg tablet 10 mg PO TID Qty: 10 0RF naproxen [Naprosyn] 500 mg tablet 500 mg PO BID Qty: 20 0RF furosemide [Lasix] 20 mg tablet 20 mg PO DAILY 3 Days Qty: 3 0RF cyclobenzaprine 10 mg tablet 10 mg PO TID PRN (Reason: muscle spasm) Qty: 20 0RF potassium chloride 10 mEq tablet extended release 10 meq PO DAILY Qty: 4 0RF amoxicillin-pot clavulanate 875-125 mg tablet 1 tab PO BID 7 Days Qty: 14 0RF oxycodone 5 mg tablet 5 mg PO TID PRN (Reason: pain) Qty: 10 0RF Rx Instructions: Partial Fill upon patient request. Discharge Date/Time: 05/29/24 20:25
[2024-05-29 14:10] LABS: MANUAL DIFF FLAG NO
[2024-05-29 14:12] LABS: Basophils Percent Auto 0.6 % (0-2); Eosinophils Absolute Auto 0.2 X10*3/uL (0.0-0.4); Eosinophils Percent Auto 2.7 % (0-4); Hematocrit 48.4 % (42.0-52.0); Hemoglobin 17.2 g/dl (14.0-18.0); Imm Gran Abs Auto 0.02 X10*3/uL (0.00-0.03); Imm Gran Pct Auto 0.3 % (0.0-0.4); Lymphocytes Absolute Auto 1.4 X10*3/uL (1.2-4.9); Lymphocytes Percent Auto 21.4 % (20-40); Mean Corpuscular HGB Conc 35.5 g/dl (31.0-36.0); Mean Corpuscular Hemoglobin 31.4 pg (27.0-33.0); Mean Corpuscular Volume 88.3 fL (80.0-98.0); Mean Platelet Volume 9.9 fL (9.4-12.4); Monocytes Absolute Auto 0.4 X10*3/uL (0.1-1.2); Neutrophils Absolute Auto 4.6 x10*3/uL (2.0-8.3); Platelet Count 165 X10*3/uL (160-400); Red Blood Count 5.48 X10*6/uL (4.60-5.80); Red Cell Distribution Width 12.8 % (11.0-16.0); White Blood Count 6.7 X10*3/uL (4.8-10.8)
[2024-05-29 14:17] LABS: Prothrombin Time 12.6 SEC (11.1-13.3)
[2024-05-29 14:20] LABS: Partial Thromboplastin Time 29.6 SEC (26.0-36.8)
[2024-05-29 14:26] LABS: Alanine Aminotransferase 177 U/L (0-40); Albumin Level 4.3 g/dL (3.5-5.0); Alkaline Phosphatase 90 U/L (39-117); Anion Gap 14 (12-20); Aspartate Amino Transferase 121 U/L (5-37); Bilirubin Total 0.8 mg/dL (0.0-1.0); Blood Urea Nitrogen 6 mg/dL (9-16); Calcium 9.2 mg/dL (8.4-10.2); Carbon Dioxide 24 mmol/L (22-29); Chloride 104 mmol/L (96-108); Creatinine Clr Calc Pharmacy 148.4; Estimated Glomerular Filt Rate > 60; Glucose Random 161 mg/dL (60-115); Potassium 3.8 mmol/L (3.3-5.1); Sodium 138 mmol/L (135-145); Total Protein 7.6 g/dL (6.5-8.0)
[2024-05-29 14:33] LABS: Troponin-I High Sensitivity 6.8 ng/L (<3.5-35.0)
[2024-05-29 14:50] LABS: Influenza A PCR NEGATIVE (Negative); Influenza B PCR NEGATIVE (Negative); Resp Syncy Virus RNA Qual PCR NEGATIVE (Negative); SARS COV2 PCR INHOUSE NEGATIVE (Negative)
--- OUTSIDE RECORDS SUMMARY | 2024-05-29 20:21 | XMS_ITS | Continuity of Care Document ---
Author Organization [facility] Address [address] [place] [address]- Care Team Providers Care Automobile Lights Assembler Name Role Phone Haylee Sánchez NP Primary Care Physician Encounter [facility] [place] Date(s): 06/06/22 - 07/06/22 [facility] [address] [place] [id number]- Attending Physician: John Azar Admitting Physician: Jhon Azar Referring Physician: John Azar Allergies, Adverse Reactions, Alerts No Known Allergies Immunizations Not Given Vaccine Date Status Refusal Reason pneumococcal 23-valent vaccine 02/25/15 Not Given Patient Refuses Medications Carafate 1 gm oral tablet 1 Gm, 1, tablet, By Mouth, 4 times a day, # 120 tablet, Refills 3, Tot. Refills 3, Maintenance, 07/05/22 9:50:00 EDT, Route to Pharmacy Electronically, [facility]/pharmacy #[id number], Partial fill upon patient request if the prescription is for a schedule II opio... Start Date: 07/05/22 Status: Ordered Flonase 50 mcg/inh nasal spray 1 sprays, Nares, Both, 2 times a day, # 16 Gm, 0 Refills, Maintenance, 08/22/15 17:22:13, [place] Start Date: 08/22/15 Status: Ordered Ultram 50 mg oral tablet 1 tablet = 50 mg, By Mouth, Every 4 hours, PRN for pain, # 15 tablet, 0 Refills, Maintenance, 08/22/15 17:22:26, Tablet Start Date: 08/22/15 Status: Ordered Problem List Condition Confirmation Course Effective Dates Status Health St atus Informant Palpitations Confirmed Active Severe obesity Confirmed Active Social History Social History Type Response Smoking Status Unknown if ever smok ed entered on: 02/24/15 Sex Patient Care team information Personnel Name: Haylee Sánchez NP Address: Address: [address], [place] [address]-
--- OUTSIDE RECORDS SUMMARY | 2024-05-29 20:21 | XMS_ITS | Continuity of Care Document ---
Demographics Address [address] [place] [address] Mobile Email Address Preferred Language Lao Marital Status Single Cheondoism Affiliation None Race Unknown Ethnic Group Not or Lati no Author Organization [facility] Address [address] [place] [id number]- Care Team Providers Care Hog Tender Name Role Phone Gonzlao CONTRERAS, Haylee Mendez Primary Care Physician [phone] Encounter [facility] [place] Date(s): 11/30/22 - 12/30/22 [facility] [address] [place] [id number]- Attending Physician: John Azar Admitting Physician: John Azar Referring Physician: AdmtrJohn Allergies, Adverse Reactions, Alerts No Known Allergies Immunizations Not Given Vaccine Date Status Refusal Reason pneumococcal 23-valent vaccine 02/25/15 Not Given Patient Refuses Medications acetaminophen 325 mg oral tablet 975 mg, 3, tablet, By Mouth, Every 6 hours, for 14 days, # 168 tablet, Refills 0, Tot. Refills 0, Acute 01/07/23 16:01:00 EDT, 12/24/22 16:01:00 EDT, Route to Pharmacy Electronically, [facility], Partial fill upon patient request if the... Start Date: 12/24/22 Stop Date: 01/07/23 Status: Ordered Carafate 1 gm oral tablet 1 Gm, 1, tablet, By Mouth, 4 times a day, # 120 tablet, Refills 3, Tot. Refills 3, Maintenance, 07/05/22 9:50:00 EDT, Route to Pharmacy Electronically, [facility]/pharmacy #[id number], Partial fill upon patient request if the prescription is for a schedule II opio... Start Date: 07/05/22 Status: Ordered Fish Oil 1000 mg oral capsule 1 capsule = 1,000 mg, By Mouth, Daily, 0 Refills, Maintenance, 12/24/22 11:37:00 EDT, Partial fill upon patient request if the prescription is for a schedule II opioid drug. Start Date: 12/24/22 Status: Ordered Flonase 50 mcg/inh nasal spray 1 sprays, Nares, Both, 2 times a day, # 16 Gm, 0 Refills, Maintenance, 08/22/15 17:22:13, [place] Start Date: 08/22/15 Status: Ordered ibuprofen 600 mg oral tablet 600 mg, 1, tablet, By Mouth, Every 6 hours, PRN, for 14 days, # 56 tablet, Refills 0, Tot. Refills 0, Acute 01/07/23 16:01:00 EDT, Pain , Mild, 12/24/22 16:01:00 EDT, Route to Pharmacy Electronically, [facility], Partial fill upon patien... Start Date: 12/24/22 Stop Date: 01/07/23 Status: Ordered lisinopril 5 mg oral tablet 5 mg, 1, tablet, By Mouth, Daily, # 30 tablet, Refills 0, Maintenance, 12/24/22 11:35:00 EDT, Partial fill upon patient request if the prescription is for a schedule II opioid drug. Start Date: 12/24/22 Status: Ordered Omeprazole = 20 mg, By Mouth, Daily, 0 Refills, Maintenance, 12/24/22 11:36:00 EDT, Partial fill upon patient request if the prescription is for a schedule II opioid drug. Start Date: 12/24/22 Status: Ordered Ultram 50 mg oral tablet [...] on: 02/24/15 Sex Patient Care team information Care Team Personnel Name: Nakia Bautista RN Position: [facility] RN Member Role: Primary Care Nurse Name: Haylee Sánchez NP Position: [facility] Outreach Member Role: PCP Address: Address: [address], [place] [address]- Care Team Related Persons Name: JONO MANN Address: home [address] [place] [address] Name: OLGA MACK Address: home [address] [place] [address], [place] [address]
--- OUTSIDE RECORDS SUMMARY | 2024-05-29 20:21 | XMS_ITS | Continuity of Care Document ---
Demographics Address [address] [place] [address] Mobile Email Address Preferred Language Ugandan Marital Status Single Tenriism Affiliation None Race Unknown Ethnic Group Not or Lati no Author Organization [facility] Address [address] [place] [id number]- Care Team Providers Care Environmental Compliance Manager Name Role Phone Gonzalo CONTRERAS, Haylee Mendez Primary Care Physician [phone] [place] [facility] [place] 01[place]17/23 [facility] [address] [place] [phone] [place] Allergies, Adverse Reactions, Alerts No Known Allergies Immunizations Not Given Vaccine Date Status Refusal Reason pneumococcal 23-valent vaccine 02/25/15 Not Given Patient Refuses Medications Carafate 1 gm oral tablet 1 Gm, 1, tablet, By Mouth, 4 times a day, # 120 tablet, Refills 3, Tot. Refills 3, Maintenance, 01/09/23 8:32:00 EDT, Route to Pharmacy Electronically, [facility]/pharmacy #[id number], Partial fill upon patient request if the prescription is for a schedule II opio... Start Date: 01/09/23 Status: Ordered Fish Oil 1000 mg oral capsule 1 capsule = 1,000 mg, By Mouth, Daily, 0 Refills, Maintenance, 12/24/22 11:37:00 EDT, Partial fill upon patient request if the prescription is for a schedule II opioid drug. Start Date: 12/24/22 Status: Ordered Flonase 50 mcg/inh nasal spray 1 sprays, Nares, Both, 2 times a day, # 16 Gm, 0 Refills, Maintenance, 08/22/15 17:22:13, [place] Start Date: 08/22/15 Status: Ordered lisinopril 5 mg oral tablet [...] Team Personnel Name: Nakia Bautista RN Position: [facility] RN Member Role: Primary Care Nurse Name: Haylee Sánchez NP Position: [facility] Outreach Member Role: PCP Address: Address: [address] [place] [address]- Care Team Related Persons Name: JONO MANN Address: home [address] [place] [address] Name: OLGA MACK Address: [address] [place] [id number]
--- OUTSIDE RECORDS SUMMARY | 2024-05-29 20:21 | XMS_ITS | Continuity of Care Document ---
Author Organization [facility] Address [address] [place] [address]- Care Team Providers Care Brass Finisher Name Role Phone Haylee Sánchez NP Primary Care Physician [place] [facility] [place] 08[place]10/22 [facility] [address] [place] [address]- Allergies, Adverse Reactions, Alerts No Known Allergies Immunizations Not Given Vaccine Date Status Refusal Reason pneumococcal 23-valent vaccine 02/25/15 Not Given Patient Refuses Medications Carafate 1 gm oral tablet 1 Gm, 1, tablet, By Mouth, 4 times a day, # 120 tablet, Refills 3, Tot. Refills 3, Maintenance, 07/05/22 9:50:00 EDT, Route to Pharmacy Electronically, [facility]/pharmacy #[id number], Partial fill upon patient request if the prescription is for a schedule II opio... Start Date: 07/05/22 Status: Ordered Flonase 50 mcg/inh nasal spray 1 sprays, Nares, Both, 2 times a day, # 16 Gm, 0 Refills, Maintenance, 08/22/15 17:22:13, [place] Start Date: 08/22/15 Status: Ordered Ultram 50 [...] Care team information Care Team Personnel Name: Haylee Sánchez NP Position: S Outreach Member Role: PCP Address: Address: [address] [place] [address], [place] [address]- Care Team Related Persons Name: JONO MANN Address: home [address] [place] [address] Name: OLGA MACK Address: home [address] [place] [address]
--- OUTSIDE RECORDS SUMMARY | 2024-05-29 20:21 | XMS_ITS | Continuity of Care Document ---
Demographics Address [address] [place] [address] [address] [place] [address] Mobile Email Address Preferred Language Arabic Marital Status Single Nondenominational Affiliation None Race Unknown Ethnic Group Not or Lati no Author Organization [facility] Address [address] [place] [address]- Care Team Providers Care Flying Ii Instructor Name Role Phone Gonzalo CONTRERAS, Haylee Mendez Primary Care Physician Encounter [facility] [place] Date(s): 08/29/22 - 12/27/22 [facility] [address] [place] [address]- Attending Physician: Raymond Estes MD Admitting Physician: Raymond Estes MD Referring Physician: Haylee Sánchez NP Allergies, Adverse Reactions, Alerts No Known Allergies Immunizations Not Given Vaccine Date Status Refusal Reason pneumococcal 23-valent vaccine 02/25/15 Not Given Patient Refuses Medications acetaminophen 325 mg oral tablet 975 mg, 3, tablet, By Mouth, Every 6 hours, for 14 days, # 168 tablet, Refills 0, Tot. Refills 0, Acute 01/07/23 16:01:00 EDT, 12/24/22 16:01:00 EDT, Route to Pharmacy Electronically, [facility], Partial fill upon patient request if the... Start Date: 12/24/22 Stop Date: 01/07/23 Status: Ordered Carafate 1 gm oral tablet 1 Gm, 1, tablet, By Mouth, 4 times a day, # 120 tablet, Refills 3, Tot. Refills 3, Maintenance, 07/05/22 9:50:00 EDT, Route to Pharmacy Electronically, [facility]/pharmacy #[id number], Partial fill upon patient request if the [...] 16 Gm, 0 Refills, Maintenance, 08/22/15 17:22:13, [place] Start Date: 08/22/15 Status: Ordered ibuprofen 600 mg oral tablet 600 mg, 1, tablet, By Mouth, Every 6 hours, PRN, for 14 days, # 56 tablet, Refills 0, Tot. Refills 0, Acute 01/07/23 16:01:00 EDT, Pain , Mild, 12/24/22 16:01:00 EDT, Route to Pharmacy Electronically, [facility], Partial fill upon patien... [...] Team Personnel Name: Nakia Bautista RN Position: [facility] RN Member Role: Primary Care Nurse Name: Haylee Sánchez NP Position: [facility] Outreach Member Role: PCP Address: Address: [address] [facility] [facility], [place] [address]- Care Team Related Persons Name: SUNIL MANNVIA Address: home [address] [place] [address] Name: OLGA MACK Address: home [address] [place] [address], [place] [address]
--- OUTSIDE RECORDS SUMMARY | 2024-05-29 20:21 | XMS_ITS | Continuity of Care Document ---
Demographics Address [address] [place] [address] Mobile Email Address Preferred Language Liberian Marital Status Single Temple Affiliation None Race Unknown Ethnic Group Not or Lati no Author Organization [facility] Address [address] [place] [address]- Care Team Providers Care Book Publisher Name Role Phone Gonzalo CONTRERAS, Haylee Mendez Primary Care Physician [phone] [place] [facility] [place]23 [facility] [address] [place] [address]- [place] Allergies, Adverse Reactions, Alerts No Known Allergies Immunizations Not Given Vaccine Date Status Refusal Reason pneumococcal 23-valent vaccine 02/25/15 Not Given Patient Refuses Medications Carafate 1 gm oral tablet 1 Gm, 1, tablet, By Mouth, 4 times a day, # 120 tablet, Refills 3, Tot. Refills 3, Maintenance, 01/09/23 8:32:00 EDT, Route to Pharmacy Electronically, [facility]/pharmacy #[id number], Partial fill upon patient request if the [...] 16 Gm, 0 Refills, Maintenance, 08/22/15 17:22:13, [place] Start Date: 08/22/15 Status: Ordered lisinopril 5 [...] Team Personnel Name: Nakia Bautista RN Position: [facility] RN Member Role: Primary Care Nurse Name: Haylee Sánchez NP Position: [facility] Outreach Member Role: PCP Address: Address: [address] [place] [address]- Care Team Related Persons Name: JONO MANN Address: home [address] [place] [address] Name: OLGA MACK Address: home [address] [facility] [address] [place] [id number]
--- OUTSIDE RECORDS SUMMARY | 2024-05-29 20:21 | XMS_ITS | Continuity of Care Document ---
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 0.2 %???Imm Gran - 0.3 %???Abs. Imm Gran - 0.0 k/mm3 Cocaine Urine Screen (12/24/2022) ???Cocaine Metabolite Screen, Urine - NONE DETECTED COVID-19 (Novel Coronavirus), Rapid PCR (12/23/2022) ???COVID-19 by RT-PCR - NEGATIVE Hold Red Top Tube (12/23/2022) ???Hold Red Top - SPECIMEN DISCARDED AFTER 1 WEEK Lactic Acid Level (12/23/2022) ???Lactate - 2.0 mmol/L Opiate Screen Urine (12/24/2022) ???Opiate Screen, Urine - POSITIVE PT (INR) (12/23/2022) ???INR - 1.0???Protime (PT) - 10.8 seconds PTT (12/23/2022) ???APTT - 22.8 seconds Type and Screen (12/23/2022) ???Blood Type - A Positive???Antibody Screen - Negative Allergies (NKA means No Known Allergies) NKA Problems No qualifying data available Education Materials Below is the list of Educational Leaflet Providered with your Discharge Instructions. Valuables and Belongings I fully understand and agree that [facility] accepts no responsibility for all my personal property including clothing, toilet articles, radios, jewelry, dentures, hearing aids, rings, money, or any other property that is in my possession or is brought to me after admission. I understand certain valuables may be placed in a hospital safe for a short period of time. I understand that the hospital is not liable for loss or damage due to accident, fire, or other natural occurrence while said property is in the safe. I accept full responsibility for any personal property that I keep with me, and will not hold the hospital responsible in case of loss or disappearance. I acknowledge that i have been encouraged to send valuables and belongings home. ?? Review of Valuable and Belonging List: With witness Possessions released to: not sent up to 6 during transfer. Requested OA/GEORGE Lara to call [facility] ED for them Date for Pt to Sign Valuables/Belongings: 12/24/22 06:51:00 ?? Other Discharge Information ? Pulmonary Rehab Status?? Pulmonary Rehab Discharge Status?? Respiratory Rate: 18 br/min ? Common Emergency Awareness Tips IS IT A STROKE? Act FAST and Check for these signs: FACE Does the face look uneven? ARM Does one arm drift down? SPEECH Does their speech sound strange? TIME Call at any sign of stroke ?? Heart Attack Signs Chest discomfort: Most heart attacks involve discomfort in the center of the chest and lasts more than a few minutes, or goes away and comes back. It can feel like uncomfortable pressure, squeezing, fullness or pain. Discomfort in upper body: Symptoms can include pain or discomfort in one or both arms, back, neck, jaw or stomach. Shortness of breath: With or without discomfort. Other signs: Breaking out in a cold sweat, nausea, or lightheaded. Remember, MINUTES DO MATTER. If you experience any of these heart attack warning signs, call to get immediate medical attention! ?? Smoking can increase your chances of developing chronic health problems and can cause harmful effects to other family members in your house. If you smoke, you are strongly encouraged to quit. Please call [facility] at [phone] or [phone] Media ([phone]) or log in to [email or web address] for referrals to smoking cessation programs. ?? The National Suicide Prevention Hotline is available 09/04 if you or someone you know needs to find a reason to keep living. By calling 1-656-741-Joyus (4087) you'll be connected to a skilled, trained counselor at a crisis center in your area. INPATIENT DISCHARGE INSTRUCTIONS SIGNATURE PAGE GUILLERMINA BAZZI Location: Registration Date and Time:12/23/2022 19:04 EDT Primary Care Physician: Haylee Sánchez NP, I GUILLERMINA BAZZI, have received the above patient education materials/instructions and have verbalized understanding. If ambulance or transport services are being used I further acknowledge being given a choice of service. ?? If you need to contact me, please call me at this number: . Patient/Fur Dyer Name: Patient/Fur Dyer Signature: Relationship to Patient: Witness Name/Signature: Date: Portable XR Chest Views * [facility] , CIS S: TRANSCRIBE Clarke Anderson MD: VERIFY Event Display: Result: Authored Date: Chest Portable Reason: Other:; Pain; Clinical Question(s): Other:; Fracture, pneumothorax, pulmonary contusion / Other: COMPARISON: None. FINDINGS: LINES AND TUBES: None. LUNGS AND PLEURA: Low lung volumes with diffuse hazy opacity throughout both lungs. No pleural effusion. No pneumothorax. HEART, MEDIASTINUM AND DORY: Heart appears enlarged but this is likely exaggerated by technique. Normal mediastinal and hilar contour. BONES AND SOFT TISSUES: No acute abnormality. IMPRESSION: Limited exam due to body habitus, technique, and low lung volumes. Hazy opacity throughout both lungs could be due to atelectasis but other pathology is also possible. WSN: [id number] Ordering Physician: Rani Velazquez Dictated By: Clarke Anderson MD Dictated Date/Time: 12/23/22 7:43 pm Reviewed By: Clarke Anderson MD Signed By: Clarke Anderson MD Signed Date/Time: 12/23/22 7:43 pm Transcribed By: RHODA Transcribed Date/Time: 12/23/22 7:[address] Cervical spine WO contrast * [facility] , CIS S: TRANSCRIBE Jaime Pastrana MD: VERIFY Event Display: Result: Authored Date: [id number] CT Head/Brain W/O Contrast, CT Cervical Spine W/O Contrast INDICATION: Reason: Other:; Head trauma, mod-severe; Clinical Question(s): Hematoma TECHNIQUE: Noncontrast head CT using axial technique was reconstructed in axial and coronal planes.Noncontrast spiral CT through the cervical spine was formatted in 3 planes. Automatic tube modulation was used for the cervical spine and iterative dose reconstruction was used for both the head and cervical spine to optimize scan parameters and image quality. CTDIvol Body: 30.60 mGy, DLP Body: 767 mGy*cm. CTDIvol Head: 45.50 mGy, DLP Head: 772 mGy*cm. COMPARISON: None. FINDINGS: [employer] Sales Representative View Findings, Lines and Tubes: None. BRAIN AND EXTRA-AXIAL SPACES: No parenchymal hemorrhage, midline shift, or mass effect. Betancourt-white matter differentiation is wellpreserved. No acute infarct. Ventricles, sulci, and basilar cisterns are normal. No white matter lesions. No subarachnoid hemorrhage. No subdural or epidural collection. CALVARIUM, SKULL BASE, AND SOFT TISSUES: No fractures or suspicious bony lesions. The paranasal sinuses and mastoid air cells are clear. Visualized orbits and globes are intact. The extracranial soft tissues are unremarkable. CERVICAL SPINE: No fracture. No acute osseous abnormalities. Normal alignment. No locked or perched facet. Intervertebral disc spaces and vertebral body heightsare preserved. OTHER BONES: No acute abnormality. CERVICAL SOFT TISSUES AND LUNG APICES: Normal soft tissues. Visualized lung apices are clear. IMPRESSION: No acute abnormality of the head or cervical spine. WSN: [id number] Ordering Physician: Rani Velazquez Dictated By: Jaime Pastrana MD Dictated Date/Time: 12/23/22 7:58 pm Reviewed By: Jaime Pastrana MD Signed By: Jaime Pastrana MD Signed Date/Time: 12/23/22 7:58 pm Transcribed By: RHODA Transcribed Date/Time: 12/23/22 7:[address] Head WO contrast * [facility] , CIS S: TRANSCRIBE Jaime Pastrana MD: VERIFY Event Display: Result: Authored Date: [id number] CT Head/Brain W/O Contrast, CT Cervical Spine W/O Contrast INDICATION: Reason: Other:; Head trauma, mod-severe; Clinical Question(s): Hematoma TECHNIQUE: Noncontrast head CT using axial technique was reconstructed in axial and coronal planes.Noncontrast spiral CT through the cervical spine was formatted in 3 planes. Automatic tube modulation was used for the cervical spine and iterative dose reconstruction was used for both the head and cervical spine to optimize scan parameters and image quality. CTDIvol Body: 30.60 mGy, DLP Body: 767 mGy*cm. CTDIvol Head: 45.50 mGy, DLP Head: 772 mGy*cm. COMPARISON: None. FINDINGS: [employer] Sales Representative View Findings, Lines and Tubes: None. BRAIN AND EXTRA-AXIAL SPACES: No parenchymal hemorrhage, midline shift, or mass effect. Betancourt-white matter differentiation is wellpreserved. No acute infarct. Ventricles, sulci, and basilar cisterns are normal. No white matter lesions. No subarachnoid hemorrhage. No subdural or epidural collection. CALVARIUM, SKULL BASE, AND SOFT TISSUES: No fractures or suspicious bony lesions. The paranasal sinuses and mastoid air cells are clear. Visualized orbits and globes are intact. The extracranial soft tissues are unremarkable. CERVICAL SPINE: No fracture. No acute osseous abnormalities. Normal alignment. No locked or perched facet. Intervertebral disc spaces and vertebral body heightsare preserved. OTHER BONES: No acute abnormality. CERVICAL SOFT TISSUES AND LUNG APICES: Normal soft tissues. Visualized lung apices are clear. IMPRESSION: No acute abnormality of the head or cervical spine. WSN: [id number] Ordering Physician: Rani Velazquez Dictated By: Jaime Pasrtana MD Dictated Date/Time: 12/23/22 7:58 pm Reviewed By: Jaime Pastrana MD Signed By: Jaime Pastrana MD Signed Date/Time: 12/23/22 7:58 pm Transcribed By: RHODA Transcribed Date/Time: 12/23/22 7:[address] Abdomen and Pelvis W contrast IV * [facility] , CIS S: TRANSCRIBE Clarke Anderson MD: VERIFY Event Display: Result: Authored Date: [id number] CT Chest W/ Contrast, CT Abd/Pelvis W/ IV Contrast Only INDICATION: Reason: Other:; Chest trauma, blunt; Clinical Question(s): Other:; Aortic hilar injury TECHNIQUE: Helical CT scan of the chest, abdomen, and pelvis with IV contrast, formatted in 3 planes. 100 cc of Omnipaque 300 was administered intravenously. This study was performed without oral contrast. Weight-based protocol was performed using automatic exposure control. COMPARISON: None. FINDINGS: Motion artifact. Beam hardening artifact from the patient's arms which are at their side. [employer] Sales Representative view findings, lines and tubes: None. Trachea and airways: Patent without evidence of tracheal or endobronchial lesion. Lungs and pleura: Clear lungs. No effusion or pneumothorax. Mediastinum and dory: No mass or hematoma. No mediastinal or hilar lymphadenopathy. No esophageal abnormality. Heart: Heart is normal in size. No pericardial effusion. Aorta: No aortic aneurysm. Pulmonary arteries: Normal caliber. No evidence of pulmonary embolism on this study performed without angiographic technique. Chest wall soft tissues: No acute abnormality. Diaphragm: Intact. Liver: Normal in attenuation and morphology. No suspicious lesion. Gallbladder: No CT evidence of gallbladder pathology. Bile ducts: No biliary ductal dilation. Spleen: Normal in size. Pancreas: No suspicious lesion or ductal dilatation. Adrenal glands: No nodule. Kidneys and ureters: No hydronephrosis, stone, or suspicious lesion. Bladder: No wall thickening or surrounding stranding. Reproductive organs: Unremarkable. Stomach, small bowel, and large bowel: Normal caliber stomach and bowel loops. No surrounding inflammatory changes. Appendix: No evidence of acute appendicitis. Peritoneum and retroperitoneum: No ascites or pneumoperitoneum. No omental or mesenteric lesions. Lymph nodes: No enlarged lymph nodes. Blood vessels: No vascular calcifications or aneurysm. No evidence of venous thrombosis. Abdominal and pelvic wall soft tissues: No acute abnormality. Small fat- containing umbilical hernia. Bones: No acute abnormality. IMPRESSION: No evidence of acute abnormality within the confines of motion artifact. WSN: [id number] Ordering Physician: Rani Velazquez Dictated By: Clarke Anderson MD Dictated Date/Time: 12/23/22 8:04 pm Reviewed By: Clarke Anderson MD Signed By: Clarke Anderson MD Signed Date/Time: 12/23/22 8:04 pm Transcribed By: RHODA Transcribed Date/Time: 12/23/22 7:[address] Chest W contrast IV * [facility] , CIS S: TRANSCRIBE Clarke Anderson MD: VERIFY Event Display: Result: Authored Date: [id number] CT Chest W/ Contrast, CT Abd/Pelvis W/ IV Contrast Only INDICATION: Reason: Other:; Chest trauma, blunt; Clinical Question(s): Other:; Aortic hilar injury TECHNIQUE: Helical CT scan of the chest, abdomen, and pelvis with IV contrast, formatted in 3 planes. 100 cc of Omnipaque 300 was administered intravenously. This study was performed without oral contrast. Weight-based protocol was performed using automatic exposure control. COMPARISON: None. FINDINGS: Motion artifact. Beam hardening artifact from the patient's arms which are at their side. [employer] Sales Representative view findings, lines and tubes: None. Trachea and airways: Patent without evidence of tracheal or endobronchial lesion. Lungs and pleura: Clear lungs. No effusion or pneumothorax. Mediastinum and dory: No mass or hematoma. No mediastinal or hilar lymphadenopathy. No esophageal abnormality. Heart: Heart is normal in size. No pericardial effusion. Aorta: No aortic aneurysm. Pulmonary arteries: Normal caliber. No evidence of pulmonary embolism on this study performed without angiographic technique. Chest wall soft tissues: No acute abnormality. Diaphragm: Intact. Liver: Normal in attenuation and morphology. No suspicious lesion. Gallbladder: No CT evidence of gallbladder pathology. Bile ducts: No biliary ductal dilation. Spleen: Normal in size. Pancreas: No suspicious lesion or ductal dilatation. Adrenal glands: No nodule. Kidneys and ureters: No hydronephrosis, stone, or suspicious lesion. Bladder: No wall thickening or surrounding stranding. Reproductive organs: Unremarkable. Stomach, small bowel, and large bowel: Normal caliber stomach and bowel loops. No surrounding inflammatory changes. Appendix: No evidence of acute appendicitis. Peritoneum and retroperitoneum: No ascites or pneumoperitoneum. No omental or mesenteric lesions. Lymph nodes: No enlarged lymph nodes. Blood vessels: No vascular calcifications or aneurysm. No evidence of venous thrombosis. Abdominal and pelvic wall soft tissues: No acute abnormality. Small fat- containing umbilical hernia. Bones: No acute abnormality. IMPRESSION: No evidence of acute abnormality within the confines of motion artifact. WSN: [id number] Ordering Physician: Rani Velazquez Dictated By: Clarke Anderson MD Dictated Date/Time: 12/23/22 8:04 pm Reviewed By: Clarke Anderson MD Signed By: Clarke Anderson MD Signed Date/Time: 12/23/22 8:04 pm Transcribed By: RHODA Transcribed Date/Time: 12/23/22 7:58 pm XR Shoulder - right GE 2 Views * [facility] , CIS S: TRANSCRIBE Clarke Anderson MD: VERIFY Event Display: Result: Authored Date: [id number] Shoulder Min 2 Views Right, 3 views REASON: Trauma; with Pain; Clinical Question(s): Fracture COMPARISON: None. FINDINGS: No fracture. No glenohumeral dislocation. No arthritic change of the glenohumeral joint. Distal clavicle appears slightly elevated relative to the acromion process. Normal coracoclavicularinterval. No calcification of the rotator cuff. IMPRESSION: Likely low-grade acromioclavicular separation. WSN: [id number] Ordering Physician: Rani Velazquez Dictated By: Clarke Anderson MD Dictated Date/Time: 12/23/22 8:21 pm Reviewed By: Clarke Anderson MD Signed By: Clarke Anderson MD Signed Date/Time: 12/23/22 8:21 pm Transcribed By: RHODA Transcribed Date/Time: 12/23/22 8:20 pm XR Elbow - right GE 3 Views * [facility] , CIS S: TRANSCRIBE Clarke Anderson MD: VERIFY Event Display: Result: Authored Date: [id number] Elbow Min 3 Views Right, 3 views REASON: Trauma; with Pain; Clinical Question(s): Fracture COMPARISON: None. FINDINGS: No fracture or dislocation. No arthritic changes. No joint effusion. IMPRESSION: No evidence of acute osseous abnormality. WSN: [id number] Ordering Physician: Rani Velazquez Dictated By: Clarke Anderson MD Dictated Date/Time: 12/23/22 8:22 pm Reviewed By: Clarke Anderson MD Signed By: Clarke Anderson MD Signed Date/Time: 12/23/22 8:22 pm Transcribed By: CSB Transcribed Date/Time: 12/23/22 8:22 pm XR Hand - right GE 3 Views * [facility] , CIS S: TRANSCRIBE Clarke Anderson MD: VERIFY Event Display: Result: Authored Date: [id number] Wrist Comp Min 3 Views Right, Hand Min 3 Views Right REASON: Trauma; Clinical Question(s): Fracture COMPARISON: None. FINDINGS: No fracture or dislocation. No arthritic change. Normal carpal configuration. Intact radial and ulnar styloid processes. Normal soft tissues. IMPRESSION: No evidence of acute osseous abnormality. WSN: [id number] Ordering Physician: Mukesh Romano Dictated By: Clarke Anderson MD Dictated Date/Time: 12/23/22 9:33 pm Reviewed By: Clarke Anderson MD Signed By: Clarke Anderson MD Signed Date/Time: 12/23/22 9:33 pm Transcribed By: CSB Transcribed Date/Time: 12/23/22 9:32 pm XR Wrist - right GE 3 Views * [facility] , CIS S: TRANSCRIBE Clarke Anderson MD: VERIFY Event Display: Result: Authored Date: [id number] Wrist Comp Min 3 Views Right, Hand Min 3 Views Right REASON: Trauma; Clinical Question(s): Fracture COMPARISON: None. FINDINGS: No fracture or dislocation. No arthritic change. Normal carpal configuration. Intact radial and ulnar styloid processes. Normal soft tissues. IMPRESSION: No evidence of acute osseous abnormality. WSN: [id number] Ordering Physician: Mukesh Romano Dictated By: Clarke Anderson MD Dictated Date/Time: 12/23/22 9:33 pm Reviewed By: Clarke Anderson MD Signed By: Clarke Anderson MD Signed Date/Time: 12/23/22 9:33 pm Transcribed By: CSB Transcribed Date/Time: 12/23/22 9:32 pm XR Foot - right GE 3 Views * [facility] , CIS S: TRANSCRIBE Clarke Anderson MD: VERIFY Event Display: Result: Authored Date: [id number] Ankle Min 3 Views Right, Foot Min 3 Views Right REASON: Trauma; Clinical Question(s): Fracture COMPARISON: None. FINDINGS: No evidence of acute or healing fracture or bone lesion. Intact ankle mortise and talar dome. No arthritic changes. Normal soft tissues. IMPRESSION: No evidence of acute osseous abnormality. WSN: [id number] Ordering Physician: Mukesh Romano Dictated By: Clarke Anderson MD Dictated Date/Time: 12/23/22 9:34 pm Reviewed By: Clarke Anderson MD Signed By: Clarke Anderson MD Signed Date/Time: 12/23/22 9:34 pm Transcribed By: RHODA Transcribed Date/Time: 12/23/22 9:33 pm XR Ankle - right GE 3 Views * [facility] , JOSSELYN S: TRANSCRIBE Clarke Anderson MD: VERIFY Event Display: Result: Authored Date: [id number] Ankle Min 3 Views Right, Foot Min 3 Views Right REASON: Trauma; Clinical Question(s): Fracture COMPARISON: None. FINDINGS: No evidence of acute or healing fracture or bone lesion. Intact ankle mortise and talar dome. No arthritic changes. Normal soft tissues. IMPRESSION: No evidence of acute osseous abnormality. WSN: [id number] Ordering Physician: Mukesh Romano Dictated By: Clarke Anderson MD Dictated Date/Time: 12/23/22 9:34 pm Reviewed By: Clarke Anderson MD Signed By: Clarke Anderson MD Signed Date/Time: 12/23/22 9:34 pm Transcribed By: RHODA Transcribed Date/Time: 12/23/22 9:33 pm Patient Care team information Care Team Personnel Name: Nakia Bautista RN Position: [facility] RN Member Role: Primary Care Nurse Name: Haylee Sánchez NP Position: [facility] Outreach Member Role: PCP Address: Address: [address] [place] [id number] Name: *[facility], Trauma Attending Position: [facility] ED Attendings Patient Name: Jo Castellon Position: [facility] ED TA [facility] Member Role: Potato Picker Name: Aye Olivo RN Position: [facility] ED RN W/OE and Tasks Member Role: Patient Care Provider Name: Mukesh Romano MD Position: [facility] Resident Member Role: ED Resident Address: Address: [address] [place] [address] Emergency [place], [place] [address]
--- OUTSIDE RECORDS SUMMARY | 2024-05-29 20:21 | XMS_ITS | Continuity of Care Document ---
Demographics Address [address] [place] [address] Mobile Email Address Preferred Language Burkinan Marital Status Single Latter Day Affiliation None Race Unknown Ethnic Group Not or Lati no Author Organization [facility] Address [address] [place] [address]- Care Team Providers Care Assistant Kitchen Manager Name Role Phone Haylee Sánchez NP Primary Care Physician Encounter [facility] [place](s): 12/01/22 - 05/31/[address] [address]- Attending Physician: Donna Black MD Admitting Physician: Donna Black MD Allergies, Adverse Reactions, Alerts No Known Allergies Medications Carafate 1 gm oral tablet 1 Gm, 1, tablet, By Mouth, 4 times a day, # 120 tablet, Refills 3, Tot. Refills 3, Maintenance, 01/09/23 8:32:00 EDT, Route to Pharmacy Electronically, [facility]pharmacy #[id number], Partial fill upon patient request if the [...] 16 Gm, 0 Refills, Maintenance, 08/22/15 17:22:13, [place] Start Date: 08/22/15 Status: Ordered lisinopril 5 [...] Team Personnel Name: Nakia Bautista RN Position: S RN Member Role: Primary Care Nurse Name: Haylee Sánchez NP Position: [facility] Outreach Member Role: PCP Address: Address: [address] [place] [address], [place] [address]- Care Team Related Persons Name: JONO MANN Address: home [address] [place] [address] Name: OLGA MACK Address: home [address] [place] [id number]
== END 2024-05-29 20:25 | disposition left against medical advice (07) ==
LOC: HO.ED 20:19
PROVIDERS: Physician Assistant; Emergency Provider Emergency Medicine; PCP Nurse Practitioner Primary Care
DX: R51.9 Headache, unspecified (principal); Z03.818 Encounter for observation for suspected exposure to other biological agents ruled out; Z79.899 Other long term (current) drug therapy
CPT/HCPCS: 0241U; 36415; 80053; 84484; 85025; 85610; 85730; 99281; 99283

== ENCOUNTER 2024-06-26 14:10 | Outpatient (REF) | payer MEDICAID, SELFPAY ==
[2024-06-26 16:31] LABS: Anion Gap 14 (12-20); Blood Urea Nitrogen 8 mg/dL (9-16); Calcium 8.9 mg/dL (8.4-10.2); Carbon Dioxide 28 mmol/L (22-29); Chloride 102 mmol/L (96-108); Estimated Glomerular Filt Rate > 60; Glucose Random 91 mg/dL (60-115); Potassium 3.9 mmol/L (3.3-5.1); Sodium 140 mmol/L (135-145)
== END 2024-06-26 14:11 | disposition home or self-care (01) ==
LOC: HO.HHCL 14:10
PROVIDERS: Visit Provider Nurse Practitioner
DX: R82.90 Unspecified abnormal findings in urine (principal)
CPT/HCPCS: 36415; 80048

== ENCOUNTER 2024-08-03 10:08 | Emergency (ER) | payer MEDICAID, SELFPAY ==
--- NOTE | ~2024-08-03 | XR_ITS ---
EXAMINATION: XR CHEST CLINICAL INFORMATION: Chest pain COMPARISON: January 14, 2024 TECHNIQUE: 2 views of the chest were obtained. FINDINGS: No significant abnormality is noted involving the heart, lungs, mediastinum, bony thorax or soft tissues. XR/XR chest 2V IMPRESSION: Unremarkable examination, without interval change. Electronically signed by: Laurie Henriquez MD 08/03/2024 10:42 AM [facility] [place]
--- NOTE | 2024-08-03 10:09 | ECG_ITS ---
Test Reason : cp Blood Pressure : / mmHG Vent. Rate : 108 BPM Atrial Rate : 108 BPM P-R Int : 144 ms QRS Dur : 090 ms QT Int : 352 ms P-R-T Axes : 033 -12 032 degrees QTc Int : 471 ms Sinus tachycardia Otherwise normal ECG When compared with ECG of 23-MAY-2024 15:04, No significant change was found Referred By: Generic ED Physician Electronically Signed By:FANY AYALA MD
[2024-08-03 10:17] VITALS: BP 151/86; PULSE 112; RESP 17; TEMP 36.6; O2SAT 98; BMI 44.8
[2024-08-03 10:30] LABS: MANUAL DIFF FLAG NO
[2024-08-03 10:38] LABS: INTERNATIONAL NORM RATIO 1.1 (0.9-1.1); Prothrombin Time 13.1 SEC (10.9-12.4)
[2024-08-03 10:40] LABS: Basophils Percent Auto 0.6 % (0-2); Eosinophils Absolute Auto 0.3 X10*3/uL (0.0-0.4); Eosinophils Percent Auto 4.6 % (0-4); Hematocrit 48.1 % (42.0-52.0); Hemoglobin 16.3 g/dl (14.0-18.0); Imm Gran Abs Auto 0.02 X10*3/uL (0.00-0.03); Imm Gran Pct Auto 0.3 % (0.0-0.4); Lymphocytes Absolute Auto 1.9 X10*3/uL (1.2-4.9); Lymphocytes Percent Auto 30.4 % (20-40); Mean Corpuscular HGB Conc 33.9 g/dl (31.0-36.0); Mean Corpuscular Hemoglobin 30.6 pg (27.0-33.0); Mean Corpuscular Volume 90.2 fL (80.0-98.0); Mean Platelet Volume 9.9 fL (9.4-12.4); Monocytes Absolute Auto 0.6 X10*3/uL (0.1-1.2); Monocytes Percent Auto 8.7 % (2-11); Neutrophils Absolute Auto 3.5 x10*3/uL (2.0-8.3); Neutrophils Percent Auto 55.4 % (45-73); Platelet Count 196 X10*3/uL (160-400); Red Blood Count 5.33 X10*6/uL (4.60-5.80); Red Cell Distribution Width 12.7 % (11.0-16.0); White Blood Count 6.3 X10*3/uL (4.8-10.8)
--- NOTE | 2024-08-03 10:49 | ED_ITS ---
HPI - Arrhythmia/Palpitations General Chief Complaint: Arrhythmia/Palpitations Stated Complaint: Fast heart rate, congestion Time Seen by Provider: 08/03/24 10:49 Source: patient, RN notes reviewed and old records reviewed Mode of arrival: ambulatory Limitations: no limitations History of Present Illness ED Provider: RUTHANN CROCKER PA-C HPI narrative: 28 year old male with pmhx significant for HTN and anxiety presents to the ED today for evaluation of nasal/sinus congestion/ pain and cough x1 month. Has been using davin's nasal spray x1 mo without relief. Reports being treated for bronchitis approximately 4 weeks ago. He was discharged with a steroid, antibiotic and albuterol inhaler. He denies history of asthma. He states that he has been using the albuterol inhaler 3 times a day for the past few weeks. Admits to using this twice prior to arrival in ED today. Reports waking up this morning with fast heart rate/palpitations, prompting him to come to the ED today. He does endorses history of anxiety. States he feels anxious at present. He is currently in the process of getting a referral to a therapist. He is not currently on any medication for this. he denies any chest pain however does endorse discomfort in his chest with coughing. No sputum production. No hemoptysis. No recent travel or long car rides. Related Data Previous Rx's ?Medication ?Instructions ?Recorded levofloxacin 500 mg tablet 500 mg PO DAILY 10 days #10 tabs 11/06/20 cyclobenzaprine 5 mg tablet 5 mg PO TID PRN muscle spasm #10 12/09/20 tabs acetaminophen 500 mg tablet 1,000 mg (2 x 500 mg) PO QID PRN 03/23/21 (Tylenol Extra Strength) fever or pain #14 tabs cyclobenzaprine 10 mg tablet 10 mg PO Q8H Muscle spasm #10 tabs 03/23/21 doxycycline hyclate 100 mg tablet 100 mg PO BID 10 days #20 tabs 03/23/21 ibuprofen 800 mg tablet 800 mg PO Q8H PRN pain #14 tabs 03/23/21 cyclobenzaprine 10 mg tablet 10 mg PO TID #10 tabs 08/03/21 naproxen 500 mg tablet (Naprosyn) 500 mg PO BID #20 tabs 08/03/21 cyclobenzaprine 10 mg tablet 10 mg PO TID PRN muscle spasm #20 03/01/22 tabs furosemide 20 mg tablet (Lasix) 20 mg PO DAILY 3 days #3 tabs 03/01/22 potassium chloride 10 mEq 10 meq PO DAILY #4 tabs 03/01/22 tablet,extended release amoxicillin 875 mg-potassium 1 tab PO BID 7 days #14 tabs 06/25/23 clavulanate 125 mg tablet oxycodone 5 mg tablet 5 mg PO TID PRN pain #10 tabs 06/26/23 amoxicillin 875 mg-potassium 1 tab PO BID 7 days #13 tabs 08/03/24 clavulanate 125 mg tablet benzonatate 100 mg capsule 100 mg PO BID PRN cough #20 caps 08/03/24 hydroxyzine HCl 25 mg tablet 25 mg PO BID PRN anxiety #14 tabs 08/03/24 Allergies Allergy/AdvReac Type Severity Reaction Status Date / Time minerals [From [employer]vi[employer]] Allergy Itchy Eyes Verified 08/03/24 10:19 pollen extracts Allergy Itchy Eyes Verified 08/03/24 10:19 vitamin B complex and C Allergy Itchy Eyes Verified 08/03/24 10:19 [From [employer]vi[employer] Stress] vitamin E (d-alpha Allergy Itchy Eyes Verified 08/03/24 10:19 tocopherol) [From Enviro Stress] Review of Systems 2 Review of Systems: Constitutional: No fever, chills, fatigue, night sweats, weight changes ENT/Mouth: No ear pain, hearing loss, rhinorrhea, sore throat, +nasal congestion, +sinus pain Eyes: No eye pain, swelling, redness, vision changes, discharge Cardio: No chest pain, palpitations, CHESTER, orthopnea, peripheral edema Pulm: No SOB, sputum, wheezing, dyspnea, hemoptysis, +dry cough GI: No nausea, vomiting, hematemesis, abdominal pain, diarrhea, constipation, hematochezia, melena : No irregular bleeding, dysuria, frequency, urgency, hesitancy, hematuria, flank pain, urinary flow changes, urinary incontinence or retention MSK: No back pain, neck pain, joint pain, myalgias Skin: No lesions, rashes Neuro: No weakness, numbness, paresthesias, LOC, dizziness, headache Psych: No panic, depression, SI/HI, AH/VH, +anxiety All other systems reviewed and are negative. PMFSH Past Medical History Attestation statement: The following information was validated with the patient. Source: old records reviewed and nursing notes reviewed Medical History HTN (hypertension) Pre-diabetes Social History Social History Alcohol intake: current Alcohol intake frequency: a few times a week Alcohol type: beer and wine Patient Tobacco Use Status: Never used Tobacco Advance Directives: No Advance Directives Information Provided: Yes Do you have a plan to hurt others: No Plan Physical Exam 2 Vital Signs: Vital Signs: Last Vital Signs Temp 97.7 F 08/03/24 12:24 Pulse 98 08/03/24 12:24 Resp 18 08/03/24 12:24 BP 132/74 08/03/24 12:24 Pulse Ox 97 08/03/24 12:24 O2 Del Method Room Air 08/03/24 12:24 BMI result Body Mass Index 44.8 Hypertensive tachycardic General: Well appearing, in no acute distress. Skin: Warm, dry, intact. No rashes or lesions. Head: Normocephalic, atraumatic. EENT: Hearing is intact b/l. Conjunctiva clear. PERRLA. EOM intact. Moist mucous membranes.?+tender to percussion over maxilary and frontal sinuses Neck: Supple without LAD Cardiac: Chest wall symmetric. tachycardic. regular rhythm. Lungs: Normal respiratory effort without accessory muscle use. Congested cough. CTA bilaterally. Back: No midline spinous or paraspinal tenderness. No step off deformity. Ext: Upper and lower extremities atraumatic, without tenderness, deformity, swelling or erythema. Full ROM throughout. no calf tenderness b/l. Neuro: AOx3. Normal speech. CN 2-12 grossly intact. Strength 5/5 intact throughout. No saddle anesthesia. Psych: Appropriate mood and affect. Responds appropriately to questions. Course Course Course Narrative: CBC without leukocytosis or left shift. No anemia. h&h stable. Dimer 208 (cut off 230) ? PE unlikely. Chemistry without acute electrolyte abnormalities requiring intervention. No SALLY. troponin wnl at 6.3. car without infiltrate or consolidation. No effusion. No cardiomegaly.?ekg showing sinus tachycardia with a rate of 108, no acute ischemic changes or st elevations. > exam consistent with sinusitis. Dose of augmentin given in ED. will send script to pharmacy. > concern for anxiety, likely exacerbated by consistent albuterol use. hydroxyzine given in ED with good effect. Will send to pharmacy to take as needed. Advised to continue follow up with/ his pcp.? > Patient has remained stable throughout ED visit today. Discussed worrisome signs and symptoms and when to return to the ED. All questions answered at this time. Patient is agreeable with disposition and stable for discharge. Medications Administered Discontinued Medications Generic Name Dose Route Start Last Admin Trade Name Freq PRN Reason Stop Dose Admin Amoxicillin/Clavulanate Potassium 875 mg 08/03/24 11:25 08/03/24 11:43 Amoxicillin/Potassium Clav 875 Mg Tablet PO 08/03/24 11:26 875 mg ONCE ONE Administration Hydroxyzine HCl 25 mg 08/03/24 11:25 08/03/24 11:43 Hydroxyzine Hcl 25 Mg Tablet PO 08/03/24 11:26 25 mg ONCE ONE Administration Medical Decision Making Medical Decision Making [facility] Narrative: 28 year old male with pmhx significant for HTN and anxiety presents to the ED today for evaluation of nasal/sinus congestion/ pain and cough x1 month. Hypertensive and tachycardic. He is nontoxic appearing and in NAD. he is tender to percussion of maxillary and frontal sinuses. lungs clear. Differential diagnosis includes anemia, electrolyte abnormality, dehydration, sinusitis, pneumonia, bronchitis, arrhythmia History without high risk features (not substernal, no exertional component, not relieved with rest).? Minimal CAD risk factors (including age). Exam without evidence of volume overload. EKG without signs of active ischemia. Given the timing of pain to ED presentation, plan to send single troponin to evaluate for NSTEMI. PERC 1 -- will obtain dimer. Presentation not consistent with pneumothorax, thoracic aortic dissection, cardiac effusion or tamponade. Plan: labs, troponin, EKG, CXR, reassessment Differential Diagnosis Differential Diagnoses: The differential diagnosis associated with the presentation includes as above. Admission/Observation Not indicated. Lab Data [facility] Lab Attestation statement: I reviewed the patient's lab results. as above. 08/03/24 10:26 08/03/24 10:26 Labs: Lab Results 08/03/24 Range/Units 10:26 WBC 6.3 (4.8-10.8) X10*3/uL RBC 5.33 (4.60-5.80) X10*6/uL Hgb 16.3 (14.0-18.0) g/dl Hct 48.1 (42.0-52.0) % MCV 90.2 (80.0-98.0) fL MCH 30.6 (27.0-33.0) pg MCHC 33.9 (31.0-36.0) g/dl RDW 12.7 (11.0-16.0) % Plt Count 196 (160-400) X10*3/uL MPV 9.9 (9.4-12.4) fL Immature Gran % (Auto) 0.3 (0.0-0.4) % Neut % (Auto) 55.4 (45-73) % Lymph % (Auto) 30.4 (20-40) % [place] % (Auto) 8.7 (2-11) % Eos % (Auto) 4.6 H (0-4) % Baso % (Auto) 0.6 (0-2) % Lymph # (Auto) 1.9 (1.2-4.9) X10*3/uL [place] # (Auto) 0.6 (0.1-1.2) X10*3/uL Eos # (Auto) 0.3 (0.0-0.4) X10*3/uL Baso # (Auto) 0.0 (0.0-0.2) X10*3/uL Abs Immat Gran (auto) 0.02 (0.00-0.03) X10*3/uL Absolute Neuts (auto) 3.5 (2.0-8.3) x10*3/uL Absolute Nucleated RBC 0.000 (0.0-0.012) X10*3/uL Nucleated RBC % (auto) 0.0 (0.0-0.2) /100WBC PT 13.1 H (10.9-12.4) SEC INR 1.1 (0.9-1.1) D-Dimer High Sensitivty 208 NG/ML Sodium 141 (135-145) mmol/L Potassium 3.6 (3.3-5.1) mmol/L Chloride 106 (96-108) mmol/L Carbon Dioxide 22 (22-29) mmol/L Anion Gap 17 (12-20) BUN 7 L (9-16) mg/dL Creatinine 0.74 (0.5-1.4) mg/dL Estim Creat Clear Calc 228.2 Estimated GFR > 60 Random Glucose 152 H (60-115) mg/dL Calcium 9.0 (8.4-10.2) mg/dL Troponin I High Sens 6.3 (<3.5-35.0) ng/L Independent Interpretation I performed an independent interpretation of an: EKG and Plain X-Ray Interpretation: CXR without infiltrate or consolidation EKG showing Radiology Impression Discussion of test interpretation with radiology: I have reviewed the radiologist's reading. Radiologist Impression: EXAMINATION: XR CHEST CLINICAL INFORMATION: Chest pain COMPARISON: January 14, 2024 TECHNIQUE: 2 views of the chest were obtained. FINDINGS: No significant abnormality is noted involving the heart, lungs, mediastinum, bony thorax or soft tissues. XR/XR chest 2V IMPRESSION: Unremarkable examination, without interval change. Electronically signed by: Laurie Henriquez MD 08/03/2024 10:42 AM [facility] [place] Review External record reviewed: Inpatient record Prescription Management I considered prescription management with: Antibiotic (augmentin) Chronic Conditions Patient?s care impacted by: Hypertension and Other (anxiety) Social Determinants Patient?s care significantly limited by Social Determinants of Health including: Other Social Determinant of Health Critical Care Time Critical Care Time Critical Care Time: No Discharge Plan Discharge Clinical Impression: Anxiety, Sinusitis Patient Disposition: Home, Self-Care Instructions: Hydroxyzine (By mouth), Sinusitis (ED), Anxiety (ED) Additional Instructions: You were evaluated in the ED today for sinus pain, congestion, cough, and elevated heart rate. Your blood work is reassuring. Your chest xray is negative. Your EKG shows elevated heart rate otherwise normal. You were provided with a dose of hydroxyzine in the ED today for anxiety. I have sent a prescription for this to your pharmacy for you to use as needed for anxiety. Please continue following up with your PCP for therapist referral and further refills of this medication. Please discontinue albuterol use. As discussed, this can elevate her heart rate if you use it too frequently. Only use this if you feel short of breath or wheezing. If you feel as though you are using it more often without improvement, please return to the ED as you will require further evaluation. Your exam is consistent with sinusitis. You were given a dose of antibiotics in the ED today. Augmentin was sent to your pharmacy for you to take twice daily for 7 days. I have also sent Tessalelemr Radhaes to your pharmacy for you to take for cough. Follow up with PCP as needed. Return with new or worsening symptoms. In the case of an emergency call 911. Prescriptions: New hydroxyzine HCl 25 mg tablet 25 mg PO BID PRN (Reason: anxiety) Qty: 14 0RF amoxicillin-pot clavulanate 875-125 mg tablet 1 tab PO BID 7 Days Qty: 13 0RF benzonatate 100 mg capsule 100 mg PO BID PRN (Reason: cough) Qty: 20 0RF No Action levofloxacin 500 mg tablet 500 mg PO DAILY 10 Days Qty: 10 0RF cyclobenzaprine 5 mg tablet 5 mg PO TID PRN (Reason: muscle spasm) Qty: 10 0RF doxycycline hyclate 100 mg tablet 100 mg PO BID 10 Days Qty: 20 0RF cyclobenzaprine 10 mg tablet 10 mg PO Q8H Qty: 10 0RF ibuprofen 800 mg tablet 800 mg PO Q8H PRN (Reason: pain) Qty: 14 0RF acetaminophen [Tylenol Extra Strength] 500 mg tablet 1,000 mg PO QID PRN (Reason: fever or pain) Qty: 14 0RF cyclobenzaprine 10 mg tablet 10 mg PO TID Qty: 10 0RF naproxen [Naprosyn] 500 mg tablet 500 mg PO BID Qty: 20 0RF furosemide [Lasix] 20 mg tablet 20 mg PO DAILY 3 Days Qty: 3 0RF cyclobenzaprine 10 mg tablet 10 mg PO TID PRN (Reason: muscle spasm) Qty: 20 0RF potassium chloride 10 mEq tablet extended release 10 meq PO DAILY Qty: 4 0RF amoxicillin-pot clavulanate 875-125 mg tablet 1 tab PO BID 7 Days Qty: 14 0RF oxycodone 5 mg tablet 5 mg PO TID PRN (Reason: pain) Qty: 10 0RF Rx Instructions: Partial Fill upon patient request. Referrals: Haylee Sánchez SCADA ENGINEER [Primary Care Provider] - Interventions: ED Discharge Assessment Last Done: 08/03/24 12:24 Discharge Date/Time: 08/03/24 12:29 Print Language: [place] Timorese
[2024-08-03 10:53] LABS: Anion Gap 17 (12-20); Blood Urea Nitrogen 7 mg/dL (9-16); Carbon Dioxide 22 mmol/L (22-29); Chloride 106 mmol/L (96-108); Creatinine Clr Calc Pharmacy 228.2; Estimated Glomerular Filt Rate > 60; Glucose Random 152 mg/dL (60-115); Potassium 3.6 mmol/L (3.3-5.1); Sodium 141 mmol/L (135-145)
[2024-08-03 11:01] LABS: Troponin-I High Sensitivity 6.3 ng/L (<3.5-35.0)
[2024-08-03 11:04] LABS: D Dimer High Sensitivity 208 NG/ML
[2024-08-03] MEDS: hydrOXYzine HCL 25 MG TABLET PO (11:43)
[2024-08-03] MEDS: Amoxicillin/Potassium Clav 875 MG TABLET PO (11:43)
[2024-08-03 11:52] VITALS: BP 139/87; PULSE 104; RESP 22; TEMP 36.3; O2SAT 96
--- NOTE | 2024-08-03 12:22 | PC.NURSE ---
patient reports relief after medication administration and feels alot better and would like to go home. MD malhotra
[2024-08-03 12:24] VITALS: BP 132/74; PULSE 98; RESP 18; TEMP 36.5; O2SAT 97
== END 2024-08-03 12:29 | disposition home or self-care (01) ==
PROVIDERS: Physician Assistant Medical; Emergency Provider Emergency Medicine; PCP Nurse Practitioner Primary Care
DX: F41.9 Anxiety disorder, unspecified (principal); J32.9 Chronic sinusitis, unspecified; I49.9 Cardiac arrhythmia, unspecified; R00.2 Palpitations; R07.89 Other chest pain; I10 Essential (primary) hypertension; R05.9 Cough, unspecified; R00.0 Tachycardia, unspecified; Z79.899 Other long term (current) drug therapy
CPT/HCPCS: 36415; 71046; 80048; 84484; 85025; 85379; 85610; 93005; 99283

== ENCOUNTER → 2024-08-03 10:09 | Outpatient (BNV) | payer MEDICAID, SELFPAY | PROVIDERS: Emergency Provider Emergency Medicine; PCP Nurse Practitioner Primary Care; Visit Provider Internal Medicine Cardiovascular Disease | DX: R00.0 Tachycardia, unspecified (principal) | CPT/HCPCS: 93010 ==

== ENCOUNTER 2024-11-20 09:43 | Outpatient (REF) | payer MEDICAID, SELFPAY ==
--- OUTSIDE RECORDS SUMMARY | 2024-11-20 11:07 | XMS_ITS | Encounter Summary ---
Author Organization [employer] Address [address] [facility] [place] [address] Care Team Providers Care Free Lance Model Name Role Phone Haylee Sánchez ANP Primary Care Provider [phone] Reason for Visit * Reason Comments Med Change Request Encounter Details Date Type Department Care Team ([facility] Contact Info) Description 09/01/2024 Refill [facility] [address] [place] [address] Haylee Sánchez ANP [address] [place] [address] Musculoskeletal pain Social History Tobacco Use Types Packs/Day Years Used Date Smoking Tobacco: Never Passive Smoke Exposure: Never Smokeless Tobacco: Never Alcohol Use Standard Drinks/Week Comments Not Currently 0 (1 standard drink = 0.6 oz pur e alcohol) Depression Answer Date Recorded Patient Health Questionnaire-9 Score 0 07/04/2024 Patient Health Questionnaire-9 Score 0 07/04/2024 Last PHQ-9: Questionnaire Data Not on file 1 Housing Stability Answer Date Recorded What is your housing situation today? I have dulce muro 07/17/[address] you li ve. Do you have problems with any of the following? None of the above 07/17/2023 Food Insecurity Answer Date Recorded Within the past 12 months, y ou worried that your food would run out before you got money to buy more: Never True 07/17/2023 Within the past 12 months,th e food you bought just didn't last and you didn't have enough money to get more: Never True Transportation Answer Date Recorded In the past 12 months, has l ack of transportation kept you from medical appts, meetings, work or from getting things needed for daily living? No 07/17/2023 Utilities Answer Date Recorded In the past 12 months, has t he electric, gas, oil or water company threatened to shut off services in your home? No 07/17/2023 Depression Answer Date Recorded Patient Health Questionnaire-2 Score 0 07/04/2024 Sex and Gender Information Value Date Recorded Sex Assigned at Male 07/17/2022 10:16 AM EDT Legal Sex Male 10:16 AM EDT Gender Identity Male 07/17/2022 10:16 AM EDT Sexual Orientation Straight 07/17/2022 10 :16 AM EDT documented as of this encounter Plan of Treatment Upcoming Encounters Date Type Department Care Team (Late st Contact Info) Description 02/20/2025 9:15 AM EDT Office Visit [facility] [address] [place] [address] Haylee Sánchez ANP [address] [place] [address] documented as of this encounter Visit Diagnoses Diagnosis Musculoskeletal pain Unspecified myalgia and myositis documented in this encounter Additional Health Concerns Assessment Noted Time PHQ-9 Depression Total Score: 0 07/04/20 24 1:52 PM EDT documented as of this encounter Care Teams Free Lance Model Relationship Specialty Start Date End Date Haylee Sánchez ANP [address] [place] [id number] PCP - General Family Medicine 05/10/21 documented as of this encounter
--- OUTSIDE RECORDS SUMMARY | 2024-11-20 11:07 | XMS_ITS | Encounter Summary ---
Author Organization [employer] Address [address] [facility] [address] [place] [address] Care Team Providers Care Case Supervisor Name Role Phone Haylee Sánchez REGINA Primary Care Provider [phone] Reason for Visit * Reason Comments Med Refill Encounter Details Date Type Department Care Team ([facility] Contact Info) Description 08/22/2023 Refill [facility] [address] [place] [address] Alicia Barajas MD [address] [place] [address] Social History Tobacco Use Types Packs/Day Years Used Date Smoking Tobacco: Never Passive Smoke Exposure: Never Smokeless Tobacco: Never Alcohol Use Standard Drinks/Week Comments Not Currently 0 (1 standard drink = 0.6 oz pur e alcohol) Depression Answer Date Recorded Patient Health Questionnaire-9 Score 0 12/28/2022 Housing Stability Answer Date Recorded What is [...] Date Recorded Patient Health Questionnaire-2 Score 0 12/28/2022 Sex and Gender Information Value Date Recorded Sex Assigned at Male 07/17/2022 10:16 AM EDT Legal Sex Male 10:16 AM EDT Gender Identity Male 07/17/2022 10:16 AM EDT Sexual Orientation Straight 07/17/2022 10 :16 AM EDT documented as of this encounter Plan of Treatment Upcoming Encounters Date Type Department Care Team (Late st Contact Info) Description 02/20/2025 9:15 AM EDT Office Visit [facility] [address] [place] [phone] Haylee Sánchez ANP [address] [place] [address] documented as of this encounter Visit Diagnoses Not on filedocumented in this encounter Additional Health Concerns Assessment Noted Time PHQ-9 Depression Total Score: 0 12/29/19 23 11:22 AM EDT documented as of this encounter Care Teams Case Supervisor Relationship Specialty Start Date End Date Haylee Sánchez ANP [address] [place] [id number] PCP - General Family Medicine 05/10/21 documented as of this encounter
--- OUTSIDE RECORDS SUMMARY | 2024-11-20 11:07 | XMS_ITS | Encounter Summary ---
Author Organization [employer] Address [address] [facility] [address] [place] [address] Care Team Providers Care Retail Sales Manager Name Role Phone Haylee Sánchez ANP Primary Care Provider [phone] Encounter Details Date Type Department Care Team (Latest Contact Info) Description 06/21/2021 Abstract [facility] CONVERSIONS Dental, Provider, DDS Social History Tobacco Use Types Packs/Day Years Used Date Smoking Tobacco: Never Assessed Sex and Gender Information Value Date Recorded Sex Assigned at Male 07/17/2022 10:16 AM EDT Legal Sex Male 10:16 AM EDT Gender Identity Male 07/17/2022 10:16 AM EDT Sexual Orientation Straight 07/17/2022 10 :16 AM EDT documented as of this encounter Plan of Treatment Upcoming Encounters Date Type Department Care Team (Late st Contact Info) Description 02/20/2025 9:15 AM EDT Office Visit [facility] [address] [place] [address] Haylee Sánchez ANP [address] [place] [address] documented as of this encounter Visit Diagnoses Not on filedocumented in this encounter Care Teams Retail Sales Manager Relationship Specialty Start Date End Date Haylee Sánchez ANP [address] [place] [address] PCP - General Family Medicine 05/10/21 documented as of this encounter
--- OUTSIDE RECORDS SUMMARY | 2024-11-20 11:07 | XMS_ITS | Encounter Summary ---
Author Organization [employer] Address [address] [facility] [address] [place] [address] Care Team Providers Care Nuclear Medicine Officer Name Role Phone Haylee Sánchez ANP Primary Care Provider [phone] Reason for Visit * Reason Comments Med Refill Encounter Details Date Type Department Care Team ([facility] st Contact Info) Description 09/19/2024 Refill [facility] [address] [place] [address] Haylee Sánchez ANP [address] [place], [place] [id number] Class 3 severe obesity with serious comorbidity and body mass index (BMI) of 40.0 to 44.9 in adult, unspecified obesity type (CMS/HCC) Social History Tobacco Use Types Packs/Day Years [...] Description 02/20/2025 9:15 AM EDT Office Visit [facility] [address] [place] [phone] Haylee Sánchez ANP [address] [place] [phone] documented as of this encounter Visit Diagnoses Diagnosis Class 3 severe obesity with serious comorbidity and body mass index (BMI) of 40.0 to 44.9 in adult, unspecified obesity type (CMS/HCC) documented in this encounter Additional Health Concerns Assessment Noted Time PHQ-9 Depression Total Score: 0 07/04/20 24 1:52 PM EDT documented as of this encounter Care Teams Nuclear Medicine Officer Relationship Specialty Start Date End Date Haylee Sánchez ANP [address] [place] [id number] PCP - General Family Medicine 05/10/21 documented as of this encounter
--- OUTSIDE RECORDS SUMMARY | 2024-11-20 11:08 | XMS_ITS | Encounter Summary ---
Author Organization [employer] Address [address] [facility] [address] [place] [address] Care Team Providers Care Production Truck Driver Name Role Phone Haylee Sánchez Primary Care Provider [phone] Reason for Visit * Reason Onset Date Comments Med Refill 11/04/2024 Encounter Details Date Type Department Care Team ([facility] st Contact Info) Description 11/04/2024 Refill [facility] [address] [place] [address] Enid Shearer RN [address] [place] [address] Class 3 severe obesity with serious comorbidity [...] housing situation today? I have dulce muro 11/04/[address] you li ve. Do you have problems with any of the following? None of the above 11/04/2024 Food Insecurity Answer Date Recorded Within the past 12 months, y ou worried that your food would run out before you got money to buy more: Never True 11/04/2024 Within the past 12 months,th e food you bought just didn't last and you didn't have enough money to get more: Never True Transportation Answer Date Recorded In the past 12 months, has l ack of transportation kept you from medical appts, meetings, work or from getting things needed for daily living? No 11/04/2024 Utilities Answer Date Recorded In the past 12 months, has t he electric, gas, oil or water company threatened to shut off services in your home? No 11/04/2024 Depression Answer Date Recorded Patient Health Questionnaire-2 Score 0 07/04/2024 Internet Access Answer Date Recorded Internet Access Q1 Yes 11/04/2024 Internet Access Q2 Not on file 11/04/2024 Sex and Gender Information Value Date Recorded Sex Assigned at Male 07/17/2022 10:16 AM EDT Legal Sex Male 10:16 AM EDT Gender Identity Male 07/17/2022 10:16 AM EDT Sexual Orientation Straight 07/17/2022 10 :16 AM EDT documented as of this encounter Miscellaneous Notes * Telephone Encounter - Enid Shearer RN - 11/04/2024 12:52 PM EST Pt currently on Zepbound 5mg. Queued refill CC Mari Gonzalez had called patient to complete PVP screening. Patient's concern was that he completedthe Tirzepatide-Weight Management injection and is requesting more refills. Please contact patient with any question or concerns. Thank you. documented in this encounter Plan of Treatment Upcoming Encounters Date Type Department Care Team (Late st Contact Info) Description 02/20/2025 9:15 AM EDT Office Visit [facility] [address] [place] [address] Haylee Sánchez ANP [address] [place] [address] documented as of this encounter Visit Diagnoses Diagnosis Class 3 severe obesity with serious comorbidity and body mass index (BMI) of 40.0 to 44.9 in adult, unspecified obesity type (CMS/HCC) documented in this encounter Additional Health Concerns Assessment Noted Time PHQ-9 Depression Total Score: 0 07/04/20 24 1:52 PM EDT documented as of this encounter Care Teams Production Truck Driver Relationship Specialty Start Date End Date Haylee Sánchez ANP [address] [place] [address] PCP - General Family Medicine 05/10/21 documented as of this encounter
--- OUTSIDE RECORDS SUMMARY | 2024-11-20 11:08 | XMS_ITS | Encounter Summary ---
Author Organization [employer] Address [address] [facility] 7t [place] [address] Care Team Providers Care Freelance Interpreter/Translator Name Role Phone Haylee Sánchez ANP Primary Care Provider [phone] Reason for Visit * Reason Comments Med Refill Encounter Details Date Type Department Care Team ([facility] Contact Info) Description 07/18/2024 Refill [facility] [address] [place] [address] Haylee Sánchez ANP [address] [place] [address] Social History Tobacco Use Types Packs/Day Years [...] Office Visit [facility] [address] [place] [address] Haylee Sánchez ANP [address] [place] [address] documented as of this encounter Visit Diagnoses Not on filedocumented in this encounter Additional Health Concerns Assessment Noted Time PHQ-9 Depression Total Score: 0 07/04/20 24 1:52 PM EDT documented as of this encounter Care Teams Freelance Interpreter/Translator Relationship Specialty Start Date End Date Haylee Sánchez ANP [address] [place] [phone] PCP - General Family Medicine 05/10/21 documented as of this encounter
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
--- OUTSIDE RECORDS SUMMARY | 2024-11-20 11:08 | XMS_ITS | Encounter Summary ---
Author Organization [employer] Address [address] [facility] [address] [place] [address] Care Team Providers Care Cinder Worker Name Role Phone Haylee Sánchez Primary Care Provider [phone] Encounter Details Date Type Department Care Team (Latest Contact Info) Description 11/20/2024 Travel Social History Tobacco Use Types Packs/Day Years [...] Description 02/20/2025 9:15 AM EDT Office Visit [facility] [address] [place] [address] Haylee Sánchez ANP [address] [place] [address] documented as of this encounter Visit Diagnoses Not on filedocumented in this encounter Additional Health Concerns Assessment Noted Time PHQ-9 Depression Total Score: 0 07/04/20 24 1:52 PM EDT documented as of this encounter Care Teams Cinder Worker Relationship Specialty Start Date End Date Haylee Sánchez ANP [address] [place] [address] PCP - General Family Medicine 05/10/21 documented as of this encounter
--- OUTSIDE RECORDS SUMMARY | 2024-11-20 11:08 | XMS_ITS | Encounter Summary ---
Author Organization [employer] Address 75 [facility] 7t [place] [address] Care Team Providers Care Post Hole Digging Machine Operator Name Role Phone Haylee Sánchez ANP Primary Care Provider [phone] Reason for Visit * Reason Comments Weight Check Encounter Details Date Type Department Care Team ([facility] st Contact Info) Description 11/20/2024 9:15 AM EST Office Visit [facility] MEDICINE [address] [place] [address] Haylee Sánchez ANP 230 [place] [address] Class 3 severe obesity with serious comorbidity and body mass index (BMI) of 40.0 to 44.9 in adult, unspecified obesity type (CMS/HCC) (Primary Dx); Allergic rhinitis, unspecified seasonality, unspecified trigger; Chronic nasal congestion; Umbilical hernia without obstruction and without gangrene; Dyslipidemia Social History Tobacco Use Types Packs/Day Years [...] AM EDT documented as of this encounter Last Filed Vital Signs Vital Sign Reading [...] Mass Index 40.32 11/20/2024 9:13 AM EST documented in this encounter Plan of Treatment Upcoming Encounters Date Type Department Care Team (Late st Contact Info) Description 02/20/2025 9:15 AM EDT Office Visit [facility] MEDICINE [address] [place] [address] Haylee Sánchez ANP [address] [place] [address] Scheduled Orders Name Type Priority Associated Diagnoses Orde r Schedule Lipid Panel, Standard Lab Routine Dyslipidemia Expected: 11/20/2024 (Approximate), Expires: 11/20/2025 documented as of this encounter Visit Diagnoses Diagnosis Class 3 severe obesity with serious comorbidity and body mass index (BMI) of 40.0 to 44.9 in adult, unspecified obesity type ([facility])- Primary Allergic rhinitis, unspecified seasonality, unspecified trigger Chronic nasal congestion Other diseases of nasal cavity and sinuses Umbilical hernia without obstruction and without gangrene Dyslipidemia Other and unspecified hyperlipidemia documented in this encounter Additional Health Concerns Assessment Noted Time PHQ-9 Depression Total Score: 0 07/04/20 24 1:52 PM EDT documented as of this encounter Care Teams Post Hole Digging Machine Operator Relationship Specialty Start Date End Date Haylee Sánchez ANP [address] [place] [address] PCP - General Family Medicine 05/10/21 documented as of this encounter
--- OUTSIDE RECORDS SUMMARY | 2024-11-20 11:08 | XMS_ITS | Encounter Summary ---
Author Organization [employer] Address 75 [facility] 7t [place] [address] Care Team Providers Care Survey Cad Technician Name Role Phone Haylee Sánchez Primary Care Provider [phone] Encounter Details Date Type Department Care Team (Late st Contact Info) Description 01/04/2023 Orders Only [facility] MED & PEDS [address] [place], [place] [phone] Ruthie Miles LPN Social History Tobacco Use Types Packs/Day Years Used Date Smoking Tobacco: Never Passive Smoke Exposure: Never Smokeless Tobacco: Never Depression Answer Date Recorded Patient Health Questionnaire-9 Score 0 12/28/2022 Depression Answer Date Recorded Patient Health Questionnaire-2 Score 0 12/28/2022 Sex and Gender Information Value Date Recorded Sex Assigned at Male 07/17/2022 10:16 AM EDT Legal Sex Male 10:16 AM EDT Gender Identity Male 07/17/2022 10:16 AM EDT Sexual Orientation Straight 07/17/2022 10 :16 AM EDT COVID-19 Exposure Response Date Recorded In the last 10 days, have yo u been in contact with someone who was confirmed or suspected to have Coronavirus/COVID-19? No / Unsure 12/28/2022 10:19 AM EDT documented as of this encounter Plan of Treatment Upcoming Encounters Date Type Department Care Team (Late st Contact Info) Description 02/20/2025 9:15 AM EDT Office Visit [facility] MEDICINE [address] [place], [place] [phone] Haylee Sánchez ANP 230 [place], [place] [phone] documented as of this encounter Visit Diagnoses Not on filedocumented in this encounter Additional Health Concerns Assessment Noted Time PHQ-9 Depression Total Score: 0 12/29/19 23 11:22 AM EDT documented as of this encounter Care Teams Survey Cad Technician Relationship Specialty Start Date End Date Haylee Sánchez ANP 230 [place] [address] PCP - General Family Medicine 05/10/21 documented as of this encounter
--- OUTSIDE RECORDS SUMMARY | 2024-11-20 11:08 | XMS_ITS | Encounter Summary ---
Author Organization [email or web address] Address [address] [facility] [address] 7t [place] [address] Care Team Providers Care Cloth Dyeing Range Tender Name Role Phone Haylee Sánchez Primary Care Provider [phone] Reason for Visit * Reason Onset Date Comments reschedule appt 11/11/2024 Tried calling pt to reschedule appt 11/17/34 at 11:15 am ,none of the numbers on file work unable to leave .appt has been cancelled . Encounter Details Date Type Department Care Team ([facility] st Contact Info) Description 11/11/2024 Telephone [facility] MEDICINE [address] [place] [address] Darian [place], [place] reschedule appt (Tried calling pt to reschedule appt 11/17/34 at 11:15 am ,none of the numbers on file work unable to leave .appt has been cancelled .) Social History Tobacco Use Types Packs/Day Years [...] encounter Miscellaneous Notes * Telephone Encounter - Samantha Farmer [place] - 11/11/2024 1:12 PM EST Tried calling pt to reschedule appt 11/17/34 at 11:15 am ,none of the numbers on file work unable to leave .appt has been cancelled . documented in this encounter Plan of Treatment Upcoming Encounters Date Type Department Care Team (Late st Contact Info) Description 02/20/2025 9:15 AM EDT Office Visit [facility] MEDICINE [address] [place] [address] Haylee Sánchez ANP 230 [place] [address] documented as of this encounter Visit Diagnoses Not on filedocumented in this encounter Additional Health Concerns Assessment Noted Time PHQ-9 Depression Total Score: 0 07/04/20 24 1:52 PM EDT documented as of this encounter Care Teams Cloth Dyeing Range Tender Relationship Specialty Start Date End Date Haylee Sánchez ANP [address] [place] [address] PCP - General Family Medicine 05/10/21 documented as of this encounter
--- OUTSIDE RECORDS SUMMARY | 2024-11-20 11:08 | XMS_ITS | Encounter Summary ---
Author Organization [employer] Address 75 [facility] 7t [place] [address] Care Team Providers Care Wedding Makeup Artist Name Role Phone Haylee Sánchez ANP Primary Care Provider [phone] Reason for Visit * Reason Comments Pre-visit Planning SDOH Screening negat kasandra and Tobacco screening negative Encounter Details Date Type Department Care Team ([facility] st Contact Info) Description 11/04/2024 Patient Outreach [facility] MEDICINE [address] [place] [address] Haylee Sánchez ANP 230 [place] [address] Pre-visit Planning (SDOH Screening negative and Tobacco screening negative) Social History Tobacco Use Types Packs/Day Years [...] AM EDT documented as of this encounter Progress Notes * Mari Mukherjee - 11/04/2024 11:19 AM EST CC Mari Gonzalez placed successful outbound call to patient for pre-visit planning. Patient name and confirmed. Patient confirms appt date and time, and has transportation arrangements. Biggest concern for appointment at this time is requesting refill on his injection. Message sent to team nurses. Patient advised to bring to appointment a photo id and insurance card. Appropriate screenings completed in anticipation of appointment. documented in this encounter Plan of Treatment Upcoming Encounters Date Type Department Care Team (Late st Contact Info) Description 02/20/2025 9:15 AM EDT Office Visit [facility] MEDICINE [address] [place] [address] Haylee Sánchez ANP [address] [place] [address] documented as of this encounter Visit Diagnoses Not on filedocumented in this encounter Additional Health Concerns Assessment Noted Time PHQ-9 Depression Total Score: 0 07/04/20 24 1:52 PM EDT documented as of this encounter Care Teams Wedding Makeup Artist Relationship Specialty Start Date End Date Haylee Sánchez ANP [address] [place] [address] PCP - General Family Medicine 05/10/21 documented as of this encounter
--- OUTSIDE RECORDS SUMMARY | 2024-11-20 11:08 | XMS_ITS | Encounter Summary ---
Author Organization [employer] Address 75 [facility] 7t [place] [address] Care Team Providers Care Sales Order Specialist Name Role Phone Haylee Sánchez Primary Care Provider [phone] Reason for Visit * Reason Comments Med Refill Encounter Details Date Type Department Care Team (Late Contact Info) Description 12/13/2022 Refill [facility] [address] [place], [place] [phone] Vasyl Roy FNP Allergic rhinitis, unspecified seasonality, unspecified trigger; Neck pain; Foraminal stenosis of cervical region Social History Tobacco Use Types Packs/Day Years Used Date Smoking Tobacco: Never Smokeless Tobacco: Never Sex and Gender Information Value Date Recorded [...] suspected to have Coronavirus/COVID-19? No / Unsure 11/22/2022 8:44 AM EST documented as of this encounter Plan of Treatment Upcoming Encounters Date Type Department Care Team (Late Contact Info) Description 02/20/2025 9:15 AM EDT Office Visit [facility] MEDICINE [address] [place], [place] [phone] Haylee Sánchez ANP 230 [place] [address] documented as of this encounter Visit Diagnoses Diagnosis Allergic rhinitis, unspecified seasonality, unspecified trigger Neck pain Cervicalgia Foraminal stenosis of cervical region documented in this encounter Care Teams Sales Order Specialist Relationship Specialty Start Date End Date Haylee Sánchez ANP 230 [place] [address] PCP - General Family Medicine 05/10/21 documented as of this encounter
--- OUTSIDE RECORDS SUMMARY | 2024-11-20 11:08 | XMS_ITS | Encounter Summary ---
Author Organization [employer] Address [address] [place] [address] 7t [place] [address] Care Team Providers Care Manager Php Name Role Phone Haylee Sánchez Primary Care Provider [phone] Encounter Details Date Type Department Care Team (Late Contact Info) Description 04/12/2023 Orders Only [facility] MEDICINE [address] [place] [address] Merlyn Rizvi LPN Social History Tobacco Use Types Packs/Day [...] Description 02/20/2025 9:15 AM EDT Office Visit [facility] MEDICINE [address] [place] [address] Haylee Sánchez ANP [address] [place] [address] documented as of this encounter Visit Diagnoses Not on filedocumented in this encounter Additional Health Concerns Assessment Noted Time PHQ-9 Depression Total Score: 0 12/29/19 23 11:22 AM EDT documented as of this encounter Care Teams Manager Php Relationship Specialty Start Date End Date Haylee Sánchez ANP [address] [place] [address] PCP - General Family Medicine 05/10/21 documented as of this encounter
--- OUTSIDE RECORDS SUMMARY | 2024-11-20 11:08 | XMS_ITS | Encounter Summary ---
Author Organization [employer] Address 75 [facility] 7t [place] [address] Care Team Providers Care Academic Program Specialist Name Role Phone Haylee Sánchez Primary Care Provider [phone] Encounter Details Date Type Department Care Team (Late st Contact Info) Description 03/13/2023 Orders Only [facility] MED & PEDS [address] [place], [place] [phone] Ruthie Miles LPN Social History Tobacco Use [...] suspected to have Coronavirus/COVID-19? No / Unsure 02/22/2023 10:44 AM EDT documented as of this encounter Plan of Treatment Upcoming Encounters Date Type Department Care Team (Late st Contact Info) Description 02/20/2025 9:15 AM EDT Office Visit [facility] MEDICINE [address] [place], [place] [phone] Haylee Sánchez ANP [address] [place], [place] [phone] documented as of this encounter Visit Diagnoses Not on filedocumented in this encounter Additional Health Concerns Assessment Noted Time PHQ-9 Depression Total Score: 0 12/29/19 23 11:22 AM EDT documented as of this encounter Care Teams Academic Program Specialist Relationship Specialty Start Date End Date Haylee Sánchez ANP [address] [place] [address] PCP - General Family Medicine 05/10/21 documented as of this encounter
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
[2024-11-20 12:20] LABS: Cholesterol 204 mg/dL (<200); HDL Cholesterol 38 mg/dL (>40); LDL Cholesterol Calculated 127 mg/dL (<100); Triglycerides 199 mg/dL (<150)
== END 2024-11-20 09:44 | disposition home or self-care (01) ==
LOC: HO.HHCL 09:43
PROVIDERS: Visit Provider Nurse Practitioner Primary Care
DX: E78.5 Hyperlipidemia, unspecified (principal)
CPT/HCPCS: 36415; 80061

== ENCOUNTER 2024-12-24 11:23 | Outpatient (AMB) | payer MEDICAID, SELFPAY ==
--- NOTE | 2024-12-24 11:24 | MHC.OFFVIS ---
Vital Signs 12/24/24 11:35 Height 6 ft 1 in Weight 305 lb BMI 40.2 BP 136/67 Blood Pressure Location Lt brachial Position Sitting Pulse 85 Intake Visit Reasons: umbilical hernia Intake Note: Patient is seen in office for evaluation of an umbilical hernia. Pt c/o: feels a lump in the umbilical area, for a couple of months, admits to pain, denies n/v/d/c ref. 11/20/24 us abd:01/09/24 Polysom Tech Required: No Accompanied by: Self / Same As Patient Allergies minerals [From [employer]] Allergy (Verified 12/24/24 11:30) Itchy Eyes pollen extracts Allergy (Verified 12/24/24 11:30) Itchy Eyes vitamin B complex and C [From [employer] Stress] Allergy (Verified 12/24/24 11:30) Itchy Eyes vitamin E (d-alpha tocopherol) [From [employer]vi[employer] Stress] Allergy (Verified 12/24/24 11:30) Itchy Eyes Medication List - Last Reconciled 12/24/24 by Catarino Rodarte MD benzonatate 100 mg PO BID PRN hydroxyzine HCl 25 mg PO BID PRN lisinopril 20 mg PO DAILY omega-3 acid ethyl esters 2 caps PO BID omeprazole 20 mg PO DAILY prednisone 40 mg PO DAILY sucralfate 1 g PO QID tirzepatide (weight loss) (Zepbound) mg subcut QWEEK HPI HPI umbilical hernia: Details: 29-year-old male referred for an umbilical hernia. He states that he had noticed this lump on his umbilicus for over a month. He said that he used to be quite heavy but had lost some weight recently intentionally. He describes the lump to be painful once in a while. He says that sometimes this seems to be bigger than usual He otherwise denies GI complaints. [facility] Medical History (Updated 12/24/24 @ 13:07 by Catarino Rodarte MD) Umbilical hernia HTN (hypertension) Pre-diabetes Social History Alcohol intake: current Alcohol intake frequency: a few times a week Alcohol type: beer and wine Patient Tobacco Use Status: Never used Tobacco Review of Systems Const Denies chills and Denies fever(s) Card Denies chest pain, Denies dyspnea and Denies dyspnea on exertion Resp Denies cough, Denies dyspnea and Denies dyspnea on exertion GI Denies hematochezia and Denies change in bowel habits Denies hematuria and Denies difficulty urinating Musc Denies back pain and Denies limited range of motion Neuro Denies focal weakness and Denies convulsions Psych Denies depression and Denies mood swings Physical Exam Vital Signs: Last Vital Signs Pulse 85 12/24/24 11:35 BP 136/67 12/24/24 11:35 BMI result Body Mass Index 40.2 Const Other: Morbidly obese General: comfortable and no acute distress Orientation/consciousness: patient oriented x3 Neck Neck: Yes no lymphadenopathy Resp Auscultation: clear to auscultation bilaterally Cardio Rhythm: regular rhythm GI Other: Umbilical hernia, reducible, along the infraumbilical margin, nontender currently, no skin changes, about 2.5 cm Palpation (GI): Soft to palpation, nontender and no guarding Neuro General: patient oriented x3 Assessment & Plan Assessment & Plan (1) Umbilical hernia: Code(s): K42.9 - Umbilical hernia without obstruction or gangrene Category: Medical Plan: Physical exam shows a reducible umbilical hernia as described above. He wants this repaired. I explained to him the technique of repair with possible mesh. I reviewed the risks including but not limited to bleeding, infections, bowel injury, recurrence, postop pain, as well as the benefits and alternatives. I also explained to him what to expect postoperatively He understands and wants to proceed. Medications: Discontinued levofloxacin Discontinued Reason: Patient Completed Course 500 mg PO DAILY 10 days 10 tabs 0RF cyclobenzaprine Discontinued Reason: Patient Completed Course 10 mg PO Q8H 10 tabs 0RF Muscle spasm doxycycline hyclate Discontinued Reason: Patient Completed Course 100 mg PO BID 10 days 20 tabs 0RF ibuprofen Discontinued Reason: Patient Completed Course 800 mg PO Q8H PRN 14 tabs 0RF pain cyclobenzaprine Discontinued Reason: Patient Completed Course 5 mg PO TID PRN 10 tabs 0RF muscle spasm acetaminophen (Tylenol Extra Strength) Discontinued Reason: Patient Completed Course 1,000 mg (2 x 500 mg) PO QID PRN 14 tabs 0RF fever or pain cyclobenzaprine Discontinued Reason: Patient Completed Course 10 mg PO TID 10 tabs 0RF naproxen (Naprosyn) Discontinued Reason: Patient Completed Course 500 mg PO BID 20 tabs 0RF cyclobenzaprine Discontinued Reason: Patient Completed Course 10 mg PO TID PRN 20 tabs 0RF muscle spasm potassium chloride ER Discontinued Reason: Patient Completed Course 10 mEq PO DAILY 4 tabs 0RF furosemide (Lasix) Discontinued Reason: Order 20 mg PO DAILY 3 days 3 tabs 0RF amoxicillin-pot clavulanate 875-125 mg Discontinued Reason: Patient Completed Course 1 tab PO BID 7 days 14 tabs 0RF oxycodone Partial Fill upon patient request. Discontinued Reason: Patient Completed Course 5 mg PO TID PRN 10 tabs 0RF pain amoxicillin-pot clavulanate 875-125 mg Discontinued Reason: Patient Completed Course 1 tab PO BID 7 days 13 tabs 0RF Coding Level of Care Code New Pt Level 3 (12548) Diagnoses Umbilical hernia K42.9
[2024-12-24 11:35] VITALS: BP 136/67; PULSE 85; BMI 40.2
== END 2024-12-24 11:37 | disposition home or self-care (01) ==
LOC: HO.HGS 11:23
PROVIDERS: PCP Nurse Practitioner Primary Care; Visit Provider Surgery
DX: K42.9 Umbilical hernia without obstruction or gangrene (principal)
CPT/HCPCS: 99203

== ENCOUNTER → 2024-12-24 11:23 | Outpatient (BNVA) | payer MEDICAID, SELFPAY | PROVIDERS: PCP Nurse Practitioner Primary Care; Visit Provider Surgery | DX: K42.9 Umbilical hernia without obstruction or gangrene (principal) | CPT/HCPCS: 99202 ==

== ENCOUNTER 2025-01-20 10:43 | Day surgery (SDC) | payer MEDICAID, SELFPAY ==
--- OUTSIDE RECORDS SUMMARY | 2024-12-31 12:06 | XMS_ITS | Encounter Summary ---
Author Organization [employer] Address 75 [facility] 7t [place] [address] Care Team Providers Care Apigee Developer Name Role Phone Haylee Sánchez ANP Primary Care Provider [phone] Reason for Visit * Reason Comments Med Refill Encounter Details Date Type Department Care Team ([facility] st Contact Info) Description 09/19/2024 Refill [facility] MEDICINE [address] [place] [address] Haylee Sánchez ANP 230 [place], [place] [phone] Class 3 severe obesity with serious comorbidity [...] Description 02/20/2025 9:15 AM EDT Office Visit [facility] MEDICINE [address] [place] [address] Haylee Sánchez ANP [address] [place] [address] documented as of this encounter Visit Diagnoses Diagnosis Class 3 severe obesity with serious comorbidity and body mass index (BMI) of 40.0 to 44.9 in adult, unspecified obesity type documented in this encounter Additional Health Concerns Assessment Noted Time PHQ-9 Depression Total Score: 0 07/04/20 24 1:52 PM EDT documented as of this encounter Care Teams Apigee Developer Relationship Specialty Start Date End Date Haylee Sánchez ANP [address] [place] [address] PCP - General Family Medicine 05/10/21 documented as of this encounter
--- OUTSIDE RECORDS SUMMARY | 2024-12-31 12:06 | XMS_ITS | Encounter Summary ---
Author Organization [employer] Address 75 [facility] 7t [place] [address] Care Team Providers Care Cable Layer Name Role Phone Haylee Sánchez Primary Care Provider [phone] Reason for Visit * Reason Comments Med Refill Encounter Details Date Type Department Care Team ([facility] Contact Info) Description 08/22/[address] [facility] MEDICINE [address] [place] [address] Alicia Barajas MD [address] [place] [address] Social History Tobacco Use Types Packs/Day Years [...] Description 02/20/2025 9:15 AM EDT Office Visit [facility] MEDICINE [address] [place] [address] Haylee Sánchez ANP [address] [place] [address] documented as of this encounter Visit Diagnoses Not on filedocumented in this encounter Additional Health Concerns Assessment Noted Time PHQ-9 Depression Total Score: 0 12/29/19 23 11:22 AM EDT documented as of this encounter Care Teams Cable Layer Relationship Specialty Start Date End Date Haylee Sánchez ANP [address] [place] [address] PCP - General Family Medicine 05/10/21 documented as of this encounter
--- OUTSIDE RECORDS SUMMARY | 2024-12-31 12:06 | XMS_ITS | Encounter Summary ---
Author Organization [employer] Address [address] 7t [place] [address] Care Team Providers Care Certified Rehabilitation Counselor Name Role Phone Haylee Sánchez ANP Primary Care Provider Reason for Visit * Reason Comments Med Change Request Encounter Details Date Type Department Care Team ([facility] Contact Info) Description 09/01/2024 Refill [facility] [address] [place] [address] Haylee Sánchez ANP [address] [place] [address] Musculoskeletal pain Social History Tobacco Use Types [...] Description 02/20/2025 9:15 AM EDT Office Visit [facility] [address] [place] [address] Haylee Sánchez ANP [address] [place] [address] documented as of this encounter Visit Diagnoses Diagnosis Musculoskeletal pain Unspecified myalgia and myositis documented in this encounter Additional Health Concerns Assessment Noted Time PHQ-9 Depression Total Score: 0 07/04/20 24 1:52 PM EDT documented as of this encounter Care Teams Certified Rehabilitation Counselor Relationship Specialty Start Date End Date Haylee Sánchez ANP [address] [place] [address] PCP - General Family Medicine 05/10/21 documented as of this encounter
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
--- OUTSIDE RECORDS SUMMARY | 2024-12-31 12:06 | XMS_ITS | Encounter Summary ---
Author Organization [employer] Address [address] [place] [address] 7t [place] [address] Care Team Providers Care Strip Presser Name Role Phone Haylee Sánchez Primary Care Provider Encounter Details Date Type Department Care Team (Late Contact Info) Description 04/12/2023 Orders Only [facility] [address] [place] [address] Merlyn Rizvi LPN Social History Tobacco Use [...] Office Visit [facility] [address] [place] [address] Haylee Sánchez ANP [address] [place] [address] documented as of this encounter Visit Diagnoses Not on filedocumented in this encounter Additional Health Concerns Assessment Noted Time PHQ-9 Depression Total Score: 0 12/29/19 23 11:22 AM EDT documented as of this encounter Care Teams Strip Presser Relationship Specialty Start Date End Date Haylee Sánchez ANP [address] [place] [address] PCP - General Family Medicine 05/10/21 documented as of this encounter
--- OUTSIDE RECORDS SUMMARY | 2024-12-31 12:06 | XMS_ITS | Encounter Summary ---
Author Organization [employer] Address [address] [facility] 7t [place] [address] Care Team Providers Care Housekeeping/Laundry Supervisor Name Role Phone Haylee Sánchez Primary Care Provider [phone] Encounter Details Date Type Department Care Team (Late st Contact Info) Description 01/04/2023 Orders Only [facility] [address] [place], [place] [phone] Ruthie Miles LPN Social History Tobacco Use [...] Description 02/20/2025 9:15 AM EDT Office Visit [facility] [address] [place] [address] Haylee Sánchez ANP [address] [place], [place] [phone] documented as of this encounter Visit Diagnoses Not on filedocumented in this encounter Additional Health Concerns Assessment Noted Time PHQ-9 Depression Total Score: 0 12/29/19 23 11:22 AM EDT documented as of this encounter Care Teams Housekeeping/Laundry Supervisor Relationship Specialty Start Date End Date Haylee Snáchez ANP [address] [place] [address] PCP - General Family Medicine 05/10/21 documented as of this encounter
--- OUTSIDE RECORDS SUMMARY | 2024-12-31 12:06 | XMS_ITS | Encounter Summary ---
Author Organization [employer] Address [address] [facility] 7t [place] [address] Care Team Providers Care Counter Sales Person Name Role Phone Haylee Sánchez ANP Primary Care Provider [phone] Reason for Visit * Reason Comments Med Refill Encounter Details Date Type Department Care Team ([facility] Contact Info) Description 07/18/2024 Refill [facility] [address] [place] [address] Haylee Sánchez ANP [address] [place] [address] Social History Tobacco Use Types Packs/Day Years [...] Office Visit [facility] [address] [place] [address] Haylee Sánchez ANP 230 [place] [address] documented as of this encounter Visit Diagnoses Not on filedocumented in this encounter Additional Health Concerns Assessment Noted Time PHQ-9 Depression Total Score: 0 07/04/20 24 1:52 PM EDT documented as of this encounter Care Teams Counter Sales Person Relationship Specialty Start Date End Date Haylee Sánchez ANP [address] [place] [address] PCP - General Family Medicine 05/10/21 documented as of this encounter
--- OUTSIDE RECORDS SUMMARY | 2024-12-31 12:06 | XMS_ITS | Encounter Summary ---
Author Organization [employer] Address [address] [facility] 7t [place] [address] Care Team Providers Care Pest Controller Name Role Phone Haylee Sánchez Primary Care Provider Encounter Details Date Type Department Care Team (Late st Contact Info) Description 03/13/2023 Orders Only [facility] [address] [place], [place] [phone] Ruthie Miles LPN Social History Tobacco Use [...] Description 02/20/2025 9:15 AM EDT Office Visit [facility] 230 [place], [place] [phone] Haylee Sánchez ANP [address] [place], [place] [phone] documented as of this encounter Visit Diagnoses Not on filedocumented in this encounter Additional Health Concerns Assessment Noted Time PHQ-9 Depression Total Score: 0 12/29/19 23 11:22 AM EDT documented as of this encounter Care Teams Pest Controller Relationship Specialty Start Date End Date Haylee Sánchez ANP [address] [place] [address] PCP - General Family Medicine 05/10/21 documented as of this encounter
--- OUTSIDE RECORDS SUMMARY | 2024-12-31 12:06 | XMS_ITS | Encounter Summary ---
Author Organization [employer] Address [address] [facility] 7t [place] [address] Care Team Providers Care Lot Porter Name Role Phone Haylee Sánchez Primary Care Provider [phone] Reason for Visit * Reason Comments Med Refill Encounter Details Date Type Department Care Team (Late Contact Info) Description 12/13/2022 Refill [facility] [address] [place], [place] [phone] Vasyl Roy FNP Allergic rhinitis, unspecified seasonality, [...] Description 02/20/2025 9:15 AM EDT Office Visit [facility] [address] [place], [place] [phone] Haylee Sánchez ANP [address] [place] [address] documented as of this encounter Visit Diagnoses Diagnosis Allergic rhinitis, unspecified seasonality, unspecified trigger Neck pain Cervicalgia Foraminal stenosis of cervical region documented in this encounter Care Teams Lot Porter Relationship Specialty Start Date End Date Haylee Sánchez ANP [address] [place] [address] PCP - General Family Medicine 05/10/21 documented as of this encounter
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
--- OUTSIDE RECORDS SUMMARY | 2024-12-31 12:06 | XMS_ITS | Encounter Summary ---
Author Organization [employer] Address [address] [facility] 7t [place] [address] Care Team Providers Care Iron Molder Helper Name Role Phone Haylee Sánchez ANP Primary Care Provider [phone] Encounter Details Date Type Department Care Team (Latest Contact Info) Description 06/21/2021 Abstract [facility] Dental, Provider, DDS Social History Tobacco [...] 9:15 AM EDT Office Visit [facility] [address] [place] [address] Haylee Sánchez ANP [address] [place] [address] documented as of this encounter Visit Diagnoses Not on filedocumented in this encounter Care Teams Iron Molder Helper Relationship Specialty Start Date End Date Haylee Sánchez ANP [address] [place] [address] PCP - General Family Medicine 05/10/21 documented as of this encounter
[2025-01-16 09:48] VITALS: BMI 40.2
[2025-01-16 10:02] VITALS: BMI 39.6
--- NOTE | 2025-01-19 10:12 | HO.ANESPROP2 ---
Documented by User: Neela Chang NP 01/19/25 10:13 HPI - Anesthesia Eval Consult details Narrative: 29yo M for Hernia Umbilical Reducible with posssible mesh Anesthesia Pre-Procedure Meds Is the patient on any of the following meds?: GLP1/DPP4 PMFSH Active Problems Active Problems: All Active Problems Umbilical hernia (Acute) Past Medical History Medical History Obesity (BMI 30-39.9) GERD (gastroesophageal reflux disease) Anxiety Hx of sinusitis (07/2024) Fatty liver Umbilical hernia HTN (hypertension) Pre-diabetes Surgical History Surgical History History of surgery on arm Hx of tonsillectomy Social History Social History Household Members: Significant Other Housing: Apartment Are you a primary career and guidance counselor to a significant other at home: No Do you presently have visiting nurse or other home services: No Alcohol intake: current Alcohol intake frequency: holidays/special occasions only Alcohol type: beer and wine Patient Tobacco Use Status: Never used Tobacco Use of substances other than those prescribed or required for medical reasons: No Have you been hit, kicked, punched, or otherwise hurt by someone within the past year? If so, by whom?: No Are you DNR?: No Advance Directives: No Advance Directives Information Provided: Yes Advance Directives on File: No Poor oral hygiene: No Meds Allergies Allergy/AdvReac Type Severity Reaction Status Date / Time minerals [From Enviro Stress] Allergy Itchy Eyes Verified 01/20/25 11:20 pollen extracts Allergy Itchy Eyes Verified 01/20/25 11:20 vitamin B complex and C Allergy Itchy Eyes Verified 01/20/25 11:20 [From Enviro Stress] vitamin E (d-alpha Allergy Itchy Eyes Verified 01/20/25 11:20 tocopherol) [From Enviro Stress] Home Medications ?Medication ?Instructions ?Recorded ?Confirmed ?Last Taken ?Type lisinopril 20 mg tablet 20 mg PO DAILY 12/24/24 01/16/25 Unknown History omega-3 acid ethyl esters 1 gram 2 cap PO BID 12/24/24 01/16/25 Unknown History capsule omeprazole 20 mg capsule,delayed 20 mg PO DAILY 12/24/24 01/16/25 Unknown History release sucralfate 1 gram tablet 1 g PO QID 12/24/24 01/16/25 Unknown History tirzepatide (weight loss) 2.5 2.5 mg subcut QWEEK 12/24/24 01/16/25 01/05/25 History mg/0.5 mL subcutaneous pen injector (Zepbound) Exam Height,Weight and Vital Signs: Height 6 ft 1 in Weight 136.078 kg Assessment and Plan Assessment Anesthesia Assessment: Chart Reviewed Documented by User: Ritu Becker MD 01/20/25 12:58 PMFSH Past Medical History Medical History Obesity (BMI 30-39.9) GERD (gastroesophageal reflux disease) Anxiety Hx of sinusitis (07/2024) Fatty liver Umbilical hernia HTN (hypertension) Pre-diabetes Cognitive capacity: ' Surgical History Surgical History History of surgery on arm Hx of tonsillectomy History of Problems with Anesthesia: No Social History Social History Household Members: Significant Other Housing: Apartment Are you a primary career and guidance counselor to a significant other at home: No Do you presently have visiting nurse or other home services: No Alcohol intake: current Alcohol intake frequency: holidays/special occasions only Alcohol type: beer and wine Patient Tobacco Use Status: Never used Tobacco Use of substances other than those prescribed or required for medical reasons: No Have you been hit, kicked, punched, or otherwise hurt by someone within the past year? If so, by whom?: No Are you DNR?: No Advance Directives: No Advance Directives Information Provided: Yes Advance Directives on File: No Poor oral hygiene: No Meds Allergies Allergy/AdvReac Type Severity Reaction Status Date / Time minerals [From Enviro Stress] Allergy Itchy Eyes Verified 01/20/25 11:20 pollen extracts Allergy Itchy Eyes Verified 01/20/25 11:20 vitamin B complex and C Allergy Itchy Eyes Verified 01/20/25 11:20 [From Enviro Stress] vitamin E (d-alpha Allergy Itchy Eyes Verified 01/20/25 11:20 tocopherol) [From Enviro Stress] Home Medications ?Medication ?Instructions ?Recorded ?Confirmed ?Last Taken ?Type lisinopril 20 mg tablet 20 mg PO DAILY 12/24/24 01/16/25 Unknown History omega-3 acid ethyl esters 1 gram 2 cap PO BID 12/24/24 01/16/25 Unknown History capsule omeprazole 20 mg capsule,delayed 20 mg PO DAILY 12/24/24 01/16/25 Unknown History release sucralfate 1 gram tablet 1 g PO QID 12/24/24 01/16/25 Unknown History tirzepatide (weight loss) 2.5 2.5 mg subcut QWEEK 12/24/24 01/16/25 01/05/25 History mg/0.5 mL subcutaneous pen injector (Zepbound) Exam Airway Mallampati Class: III TM Dist: >3cm Neck ROM: Full Loose/Missing/Broken Teeth: No Heart: RRR Lungs: CTA Assessment and Plan Assessment Anesthesia Assessment: Anesthesia Plan Discussed Final Anesthetic Review History of Problems with Anesthesia: No NPO: Yes ASA Class: II Final Preanesthetic Review: Meds/Allgs Chart Reviewed, Consent Obtained/Reviewed and Anes Risks/Benef Reviewed Patient Risk: Low Procedure Risk: Low Anesthetic Plan Anesthetic Plan: GA Disposition: Standard PACU
[2025-01-20 11:19] VITALS: BMI 39.6
[2025-01-20] MEDS: Lactated Ringers 1,000 ML 100 ML IVCONT (11:26)
[2025-01-20 11:31] VITALS: BP 132/69; PULSE 78; RESP 18; TEMP 36.8; O2SAT 98
--- NOTE | 2025-01-20 11:44 | MHC.SHP ---
Pre-Procedural Eval Section A - 24 Hr Update-Section A only Date of Service: 01/20/25 Section B - Complete if H&P > 30 days Chief Complaint: Umbilical hernia without obstruction or gangrene Details of Present Illness: Has an umbilical hernia, partially reducible Relevant Family History (Specify if Yes): Yes Relevant Social History: None Present Medications: see Short Stay Collaborative assessment Medical History: Significant History (Obesity, reflux disease) History of Previous Operations: No relevant previous surgery Allergies: Allergies Allergy/AdvReac Type Severity Reaction Status Date / Time minerals [From Enviro Stress] Allergy Itchy Eyes Verified 01/20/25 11:20 pollen extracts Allergy Itchy Eyes Verified 01/20/25 11:20 vitamin B complex and C Allergy Itchy Eyes Verified 01/20/25 11:20 [From Enviro Stress] vitamin E (d-alpha Allergy Itchy Eyes Verified 01/20/25 11:20 tocopherol) [From Enviro Stress] Review of Systems Sugical H&P ROS: Negative: Constitution, Cardiovascular and Respiratory Exam Surgical H&P Exam: Normal: Heart and Normal: Lungs and Significant Findings: Abdomen (Umbilical hernia about 2 cm) Plan Diagnosis/Plan: Unchanged I have reviewed the history and physical and performed a pertinent physical examination on my patient. No changes have occurred unless specified. Time Spent With Patient Time: Total time managing care of this patient today ____ minutes.
[2025-01-20] MEDS: ceFAZolin Sodium/Dextrose,Iso 2 GM/50 ML PIGGYBACK IV (13:20)
--- NOTE | 2025-01-20 13:59 | P.OP_ITS ---
Operative Note Operative Note Date of Service: 01/20/25 Narrative: Preop diagnosis: Umbilical hernia, reducible Postop diagnosis: The same Procedure: Repair of hernia with Phasix mesh The patient is a 29-year-old male with note of an umbilical hernia. He wanted this repaired. He understood the technique of the planned procedure as was the risks, benefits, and alternatives. He was brought to the operating room and placed supine under general anesthesia via laryngeal mask airway. The abdomen was prepped and draped in the usual sterile fashion. A surgical time-out was done. The patient received cefazolin 2 g IV preoperatively The hernia was noted to be in the infraumbilical area. I infiltrated the planned line of incision with lidocaine 1%. I made a short infraumbilical transverse curvilinear incision with a blade 15. This was carried down through the full-thickness of the skin and subcutaneous fat. There was note of a thick amount of subcutaneous fat in view of the patient's morbid obesity. The hernia was identified. This was fat containing. I dissected the umbilicus as a flap to separate this from the hernia contents. I then proceeded to sharply dissect the hernia contents including the dissect down to the fascial edge. This allowed me to reduce the entire hernia contents through the fascial defect. The fascial defect measured about 1.5 cm. There were no bowel loops talked to the fascia in this area. I therefore used a small-sized Phasix mesh. I flattened the mesh underneath the fascia. I secured the Prolene straps to the fascial edge on both sides using Prolene 2 sutures. I trimmed the Prolene straps flush on the fascial level I then closed the fascia with a [id number]-pk-depym Maxon 1 stitch I tacked the umbilicus to the fascia with a Polysorb 3-0 simple stitch to re- create the dimple area The subcutaneous layer was reapposed with Polysorb 3-0 simple interrupted sutures. Skin closure was achieved with Polysorb 4-0 subcuticular running stitch I infiltrated the area with Marcaine 0.5% for postop analgesia. Steri-Strips and dressings were applied. The procedure was completed The patient tolerated the procedure well. There were no immediate complications. Initial and final counts of sponges and instruments were correct. Estimated blood loss was less than 10 cc The patient was extubated without difficulty and transferred to the recovery room with stable vital signs
[2025-01-20 14:07] VITALS: BP 134/77; PULSE 79; RESP 18; TEMP 37.2; O2SAT 98
[2025-01-20 14:12] VITALS: BP 131/80; PULSE 80; RESP 18; O2SAT 96
[2025-01-20 14:17] VITALS: BP 131/83; PULSE 78; RESP 18; O2SAT 96
[2025-01-20 14:22] VITALS: BP 136/80; PULSE 78; RESP 18; O2SAT 96
[2025-01-20] MEDS: Acetaminophen 325 MG TABLET 975 MG PO (14:25)
[2025-01-20 14:41] VITALS: BP 136/75; PULSE 78; RESP 18; TEMP 36.6; O2SAT 96
== END 2025-01-20 15:10 | disposition home or self-care (01) ==
PROVIDERS: PCP Nurse Practitioner Primary Care; Visit Provider Surgery
PROC: (CPT 49591; principal; 2025-01-20 12:30)
DX: K42.9 Umbilical hernia without obstruction or gangrene (principal); E66.01 Morbid (severe) obesity due to excess calories; Z68.41 Body mass index [BMI] 40.0-44.9, adult; I10 Essential (primary) hypertension; R73.03 Prediabetes; Z79.85 Long-term (current) use of injectable non-insulin antidiabetic drugs; Z79.52 Long term (current) use of systemic steroids; Z79.899 Other long term (current) drug therapy; Z88.8 Allergy status to other drugs, medicaments and biological substances
CPT/HCPCS: 49591; C1781; J0690; J1100; J1885; J2003; J2250; J2405; J2704; J2795; J3010

== ENCOUNTER → 2025-01-20 10:43 | Outpatient (BNV) | payer MEDICAID, SELFPAY | PROVIDERS: PCP Nurse Practitioner Primary Care; Visit Provider Surgery | DX: K42.9 Umbilical hernia without obstruction or gangrene (principal) | CPT/HCPCS: 49591 ==

== ENCOUNTER 2025-02-02 11:27 | Outpatient (AMB) | payer MEDICAID, SELFPAY ==
--- NOTE | 2025-02-02 11:30 | A.OFFVIS_ITS ---
Vital Signs 02/02/25 11:31 Weight 308 lb BP 134/74 Blood Pressure Location Rt brachial Position Sitting Pulse 92 Intake Visit Reasons: S/P umbilical hernia w/pos mesh Intake Note: Patient here s/p repair of hernia with Phasix mesh. Reports incision healing well. Patient c/o: no concerns. No longer taking rx pain meds. Surgery: 01-20-2025 Monotype Operator Required: No Accompanied by: Self / Same As Patient Allergies minerals [From Enviro Stress] Allergy (Verified 02/02/25 11:32) Itchy Eyes pollen extracts Allergy (Verified 02/02/25 11:32) Itchy Eyes vitamin B complex and C [From Enviro Stress] Allergy (Verified 02/02/25 11:32) Itchy Eyes vitamin E (d-alpha tocopherol) [From Enviro Stress] Allergy (Verified 02/02/25 11:32) Itchy Eyes HPI HPI S/P umbilical hernia w/pos mesh: Details: He underwent repair of an umbilical hernia with Phasix mesh last 01/20/2025. He tolerated procedure well. He says he is currently doing well and denies significant complaints. [facility] Medical History Umbilical hernia (01/20/25) Obesity (BMI 30-39.9) GERD (gastroesophageal reflux disease) Anxiety Hx of sinusitis (07/2024) Fatty liver Umbilical hernia HTN (hypertension) Pre-diabetes Surgical History History of surgery on arm Hx of tonsillectomy Social History Household Members: Significant Other Housing: Apartment Are you a primary senior caregiver to a significant other at home: No Do you presently have visiting nurse or other home services: No Alcohol intake: current Alcohol intake frequency: holidays/special occasions only Alcohol type: beer and wine Patient Tobacco Use Status: Never used Tobacco Review of Systems Const Denies chills and Denies fever(s) Card Denies chest pain, Denies dyspnea and Denies dyspnea on exertion Resp Denies cough, Denies dyspnea and Denies dyspnea on exertion GI Denies hematochezia and Denies change in bowel habits Denies hematuria and Denies difficulty urinating Musc Denies back pain and Denies limited range of motion Neuro Denies focal weakness and Denies convulsions Psych Denies depression and Denies mood swings Physical Exam Vital Signs: Last Vital Signs Pulse 92 02/02/25 11:31 BP 134/74 02/02/25 11:31 Const General: comfortable and no acute distress Resp Effort & Inspection: normal respiratory effort GI Other: Umbilical hernia repair site well healed, not infected, repair site intact Palpation (GI): Soft to palpation Assessment & Plan Assessment & Plan (1) Umbilical hernia: Code(s): K42.9 - Umbilical hernia without obstruction or gangrene Category: Medical Plan: Status post repair with mesh. He is doing very well. The repair site is well healed. The site is intact as well. I advised him to avoid lifting anything more than 20 lb for at least 2 more weeks. He can otherwise follow up on a p.r.n. basis. Coding Level of Care Code Global (81911) Diagnoses Umbilical hernia K42.9
[2025-02-02 11:31] VITALS: BP 134/74; PULSE 92
--- OUTSIDE RECORDS SUMMARY | 2025-02-02 12:08 | XMS_ITS | Encounter Summary ---
Author Organization [employer] Address [address] [facility] 7t [place] [address] Care Team Providers Care Sterile Proc Tech Name Role Phone Haylee Sánchez Primary Care Provider [phone] Encounter Details Date Type Department Care Team (Late st Contact Info) Description 04/12/2023 Orders Only [facility] [address] [place] [phone] Merlyn Rizvi LPN Social History Tobacco Use [...] Description 02/20/2025 9:15 AM EDT Office Visit [facility] [address] [place] [phone] Haylee Sánchez ANP [address] [place] [address] documented as of this encounter Visit Diagnoses Not on filedocumented in this encounter Additional Health Concerns Assessment Noted Time PHQ-9 Depression Total Score: 0 12/29/19 23 11:22 AM EDT documented as of this encounter Care Teams Sterile Proc Tech Relationship Specialty Start Date End Date Haylee Sánchez ANP [address] [place] [address] PCP - General Family Medicine 05/10/21 documented as of this encounter
--- OUTSIDE RECORDS SUMMARY | 2025-02-02 12:08 | XMS_ITS | Encounter Summary ---
Author Organization [employer] Address [address] [facility] [address] [place] [address] Care Team Providers Care Support Clerk Name Role Phone Haylee Sánchez Primary Care Provider [phone] Reason for Visit * Reason Comments Med Change Request Encounter Details Date Type Department Care Team ([facility] st Contact Info) Description 09/01/2024 Refill [facility] [address] [place], [place] [phone] Haylee Sánchez ANP [address] [place] [address] Musculoskeletal pain Social History Tobacco Use Types [...] Description 02/20/2025 9:15 AM EDT Office Visit [facility] [address] [place] [address] Haylee Sánchez ANP 230 [place] [address] documented as of this encounter Visit Diagnoses Diagnosis Musculoskeletal pain Unspecified myalgia and myositis documented in this encounter Additional Health Concerns Assessment Noted Time PHQ-9 Depression Total Score: 0 07/04/20 24 1:52 PM EDT documented as of this encounter Care Teams Support Clerk Relationship Specialty Start Date End Date Haylee Sánchez ANP [address] [place] [address] PCP - General Family Medicine 05/10/21 documented as of this encounter
--- OUTSIDE RECORDS SUMMARY | 2025-02-02 12:08 | XMS_ITS | Encounter Summary ---
Author Organization [employer] Address [address] [facility] 7t [place] [address] Care Team Providers Care Crack Off Person Name Role Phone Haylee Sánchez Primary Care Provider [phone] Encounter Details Date Type Department Care Team (Late st Contact Info) Description 03/13/2023 Orders Only [facility] [address] [place] [address] Ruthie Miles LPN Social History Tobacco Use [...] Description 02/20/2025 9:15 AM EDT Office Visit [facility] [address] [place], [place] [phone] Haylee Sánchez ANP 230 [place] [address] documented as of this encounter Visit Diagnoses Not on filedocumented in this encounter Additional Health Concerns Assessment Noted Time PHQ-9 Depression Total Score: 0 12/29/19 23 11:22 AM EDT documented as of this encounter Care Teams Crack Off Person Relationship Specialty Start Date End Date Haylee Sánchez ANP 230 [place] [address] PCP - General Family Medicine 05/10/21 documented as of this encounter
--- OUTSIDE RECORDS SUMMARY | 2025-02-02 12:08 | XMS_ITS | Encounter Summary ---
Author Organization [employer] Address [address] [facility] 7t [place] [address] Care Team Providers Care Talent Management Specialist Name Role Phone Haylee Sánchez REGINA Primary Care Provider [phone] Reason for Visit * Reason Comments Med Refill Encounter Details Date Type Department Care Team ([facility] st Contact Info) Description 08/22/2023 Refill [facility] [address] [place], [place] [phone] Alicia Barajas MD 230 [place] [address] Social History Tobacco Use Types Packs/Day Years [...] 9:15 AM EDT Office Visit [facility] [address] [place] [address] Haylee Sánchez ANP [address] [place] [address] documented as of this encounter Visit Diagnoses Not on filedocumented in this encounter Additional Health Concerns Assessment Noted Time PHQ-9 Depression Total Score: 0 12/29/19 23 11:22 AM EDT documented as of this encounter Care Teams Talent Management Specialist Relationship Specialty Start Date End Date Haylee Sánchez ANP [address] [place] [phone] PCP - General Family Medicine 05/10/21 documented as of this encounter
--- OUTSIDE RECORDS SUMMARY | 2025-02-02 12:08 | XMS_ITS | Encounter Summary ---
Author Organization [employer] Address [address] [facility] 7t [place] [address] Care Team Providers Care Supervisor Scenic Arts Name Role Phone Haylee Sánchez Primary Care Provider [phone] Reason for Visit * Reason Comments Med Refill Encounter Details Date Type Department Care Team ([facility] st Contact Info) Description 09/19/2024 Refill [facility] [address] [place], [place] [phone] Haylee Sánchez ANP 230 [place], [place] [phone] Class 3 severe obesity with serious comorbidity [...] 9:15 AM EDT Office Visit [facility] [address] [place] [phone] Haylee Sánchez ANP [address] [place] [address] documented as of this encounter Visit Diagnoses Diagnosis Class 3 severe obesity with serious comorbidity and body mass index (BMI) of 40.0 to 44.9 in adult, unspecified obesity type documented in this encounter Additional Health Concerns Assessment Noted Time PHQ-9 Depression Total Score: 0 07/04/20 24 1:52 PM EDT documented as of this encounter Care Teams Supervisor Scenic Arts Relationship Specialty Start Date End Date Haylee Sánchez ANP [address] [place] [address] PCP - General Family Medicine 05/10/21 documented as of this encounter
--- OUTSIDE RECORDS SUMMARY | 2025-02-02 12:08 | XMS_ITS | Encounter Summary ---
Author Organization [employer] Address [address] [facility] 7t [place] [address] Care Team Providers Care Matting Press Tender Name Role Phone Haylee Sánchez Primary Care Provider [phone] Reason for Visit * Reason Comments Med Refill Encounter Details Date Type Department Care Team ([facility] st Contact Info) Description 07/18/2024 Refill [facility] [address] [place] [address] Haylee Sánchez ANP [address] [place] [address] Social History Tobacco Use Types Packs/Day Years [...] Description 02/20/2025 9:15 AM EDT Office Visit [facility] [address] [place] [address] Haylee Sánchez ANP 230 [place] [address] documented as of this encounter Visit Diagnoses Not on filedocumented in this encounter Additional Health Concerns Assessment Noted Time PHQ-9 Depression Total Score: 0 07/04/20 24 1:52 PM EDT documented as of this encounter Care Teams Matting Press Tender Relationship Specialty Start Date End Date Haylee Sánchez ANP [address] [place] [id number] PCP - General Family Medicine 05/10/21 documented as of this encounter
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
--- OUTSIDE RECORDS SUMMARY | 2025-02-02 12:09 | XMS_ITS | Encounter Summary ---
Author Organization [employer] Address [address] [facility] 7t [place] [address] Care Team Providers Care Preservative Filler Machine Operator Name Role Phone Haylee Sánchez Primary Care Provider [phone] Reason for Visit * Reason Onset Date Comments Prior Auth Prescription 01/28/2025 Encounter Details Date Type Department Care Team ([facility] Contact Info) Description 01/28/2025 Telephone [facility] [address] [place] [address] Haylee Sánchez ANP [address] [place] [address] Prior Auth Prescription Social History Tobacco Use Types Packs/Day Years [...] encounter Miscellaneous Notes * Telephone Encounter - Carissa Long - 01/29/2025 4:04 PM EDT PA for Zepbound from [employer] generated and sent to PCP for signature via [employer]. * Telephone Encounter - Lorie Garcia - 01/28/2025 3:04 PM EDT Tc from pt stating script for Tirzepatide-Weight Management (Zepbound) 7.5 MG/0.5ML solution auto-injector requires a PA documented in this encounter Plan of Treatment Upcoming Encounters Date Type Department Care Team (Late st Contact Info) Description 02/20/2025 9:15 AM EDT Office Visit [facility] [address] [place], [place] [phone] Haylee Sánchez ANP [address] [place] [address] documented as of this encounter Visit Diagnoses Not on filedocumented in this encounter Additional Health Concerns Assessment Noted Time PHQ-9 Depression Total Score: 0 07/04/20 24 1:52 PM EDT documented as of this encounter Care Teams Preservative Filler Machine Operator Relationship Specialty Start Date End Date Haylee Sánchez ANP [address] [place] [address] PCP - General Family Medicine 05/10/21 documented as of this encounter
--- OUTSIDE RECORDS SUMMARY | 2025-02-02 12:09 | XMS_ITS | Encounter Summary ---
Author Organization [employer] Address 75 [facility] 7t [place] [address] Care Team Providers Care Cotton Bag Clipper Name Role Phone Haylee Sánchez ANP Primary Care Provider [phone] Encounter Details Date Type Department Care Team (Latest Contact Info) Description 06/21/2021 Abstract [facility] CONVERSIONS Dental, Provider, DDS Social History Tobacco [...] 02/20/2025 9:15 AM EDT Office Visit [facility] [address] [place] [address] Haylee Sánchez ANP [address] [place] [address] documented as of this encounter Visit Diagnoses Not on filedocumented in this encounter Care Teams Cotton Bag Clipper Relationship Specialty Start Date End Date Haylee Sánchez ANP [address] [place] [address] PCP - General Family Medicine 05/10/21 documented as of this encounter
--- OUTSIDE RECORDS SUMMARY | 2025-02-02 12:09 | XMS_ITS | Encounter Summary ---
Author Organization [employer] Address 75 [facility] 7t [place] [address] Care Team Providers Care Lug Loader Name Role Phone Haylee Sánchez Primary Care Provider [phone] Reason for Visit * Reason Comments Med Refill Encounter Details Date Type Department Care Team ([facility] st Contact Info) Description 01/27/2025 Refill [facility] [address] [place], [place] [phone] Haylee Sánchez ANP [address] [place], [place] [phone] Class 3 severe obesity with serious comorbidity and body mass index (BMI) of 40.0 to 44.9 in adult, unspecified obesity type Social History Tobacco Use Types Packs/Day Years [...] Description 02/20/2025 9:15 AM EDT Office Visit [facility] [address] [place] [phone] Haylee Sánchez ANP [address] [place] [address] documented as of this encounter Visit Diagnoses Diagnosis Class 3 severe obesity with serious comorbidity and body mass index (BMI) of 40.0 to 44.9 in adult, unspecified obesity type documented in this encounter Additional Health Concerns Assessment Noted Time PHQ-9 Depression Total Score: 0 07/04/20 24 1:52 PM EDT documented as of this encounter Care Teams Lug Loader Relationship Specialty Start Date End Date Haylee Sánchez ANP [address] [place] [phone] PCP - General Family Medicine 05/10/21 documented as of this encounter
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
--- OUTSIDE RECORDS SUMMARY | 2025-02-02 12:09 | XMS_ITS | Encounter Summary ---
Author Organization [employer] Address 75 [facility] 7t [place] [address] Care Team Providers Care Assistant Program Manager Name Role Phone Haylee Sánchez Primary Care Provider [phone] Reason for Visit * Reason Comments Med Refill Encounter Details Date Type Department Care Team (Late Contact Info) Description 12/13/[address] [facility] [address] [place], [place] [phone] Vasyl Roy FNP Allergic rhinitis, unspecified seasonality, [...] 02/20/2025 9:15 AM EDT Office Visit [facility] [address] [place], [place] [phone] Haylee Sánchez ANP [address] [place] [address] documented as of this encounter Visit Diagnoses Diagnosis Allergic rhinitis, unspecified seasonality, unspecified trigger Neck pain Cervicalgia Foraminal stenosis of cervical region documented in this encounter Care Teams Assistant Program Manager Relationship Specialty Start Date End Date Haylee Sánchez ANP [address] [place] [address] PCP - General Family Medicine 05/10/21 documented as of this encounter
--- OUTSIDE RECORDS SUMMARY | 2025-02-02 12:09 | XMS_ITS | Encounter Summary ---
Author Organization [employer] Address 75 [facility] 7t [place] [address] Care Team Providers Care Casting House Laborer Name Role Phone Haylee Sánchez Primary Care Provider [phone] Encounter Details Date Type Department Care Team (Late st Contact Info) Description 01/04/2023 Orders Only [facility] [address] [place] [address] Ruthie Miles LPN Social History Tobacco Use [...] Description 02/20/2025 9:15 AM EDT Office Visit [facility] [address] [place] [address] Haylee Sánchez ANP [address] [place] [address] documented as of this encounter Visit Diagnoses Not on filedocumented in this encounter Additional Health Concerns Assessment Noted Time PHQ-9 Depression Total Score: 0 12/29/19 23 11:22 AM EDT documented as of this encounter Care Teams Casting House Laborer Relationship Specialty Start Date End Date Haylee Sánchez ANP [address] [place] [address] PCP - General Family Medicine 05/10/21 documented as of this encounter
== END 2025-02-02 11:37 | disposition home or self-care (01) ==
PROVIDERS: PCP Nurse Practitioner Primary Care; Visit Provider Surgery
DX: K42.9 Umbilical hernia without obstruction or gangrene (principal)
CPT/HCPCS: 99212

== ENCOUNTER → 2025-02-02 11:27 | Outpatient (BNVA) | payer MEDICAID, SELFPAY | PROVIDERS: PCP Nurse Practitioner Primary Care; Visit Provider Surgery | DX: Z48.815 Encounter for surgical aftercare following surgery on the digestive system (principal); Z98.890 Other specified postprocedural states | CPT/HCPCS: 99212 ==

== ENCOUNTER 2025-06-15 18:00 | Outpatient (REF) | payer MEDICAID, SELFPAY | END 2025-06-15 18:01 | disposition home or self-care (01) | LOC: HO.HHCLNP 18:00 | PROVIDERS: Visit Provider Nurse Practitioner | DX: R30.0 Dysuria (principal) | CPT/HCPCS: 87086 ==

== ENCOUNTER 2025-06-16 11:43 | Outpatient (REF) | payer MEDICAID, SELFPAY ==
--- OUTSIDE RECORDS SUMMARY | 2025-06-15 17:20 | XMS_ITS | Encounter Summary ---
Author Organization [employer] Address 75 [facility] 7t [place] [address] Care Team Providers Care Engraving Plate Maker Name Role Phone Haylee Sánchez Primary Care Provider [phone] Reason for Referral * Imaging (Routine) - Authorized Specialty Diagnoses / Procedures Referred By Contac t Referred To Contact Radiology Diagnoses Bilateral flank pain Procedures US RENAL BI Kesha Morgan NP [address] [place] [address] Phone: tel: fax: [facility] [address] [place] [address] Phone: tel: fax: Referral ID Status Reason Start Date Expiration Date V isits Requested Visits Authorized [id number] Authorized 06/15/2025 06/15/2026 1 1 Encounter Details Date Type Department Care Team (Late st Contact Info) Description 06/15/2025 5:20 PM EDT Office Visit [facility] [address] [place] [address] Kesha Morgan NP [address] [place], [place] [phone] Dysuria (Primary Dx); Screening examination for STI; Bilateral flank pain; Bilirubin in urine; Elevated blood pressure reading in office with diagnosis of hypertension Social History Tobacco Use Types Packs/Day Years [...] Sign Reading Time Taken Comments Blood Pressure 146/84 06/15/2025 6:08 PM EDT Pulse 101 06/15/2025 5:14 PM EDT Temperature 36.4 C (97.5 F) 06/15/2025 5:14 PM EDT Respiratory Rate 20 06/15/2025 5:14 PM EDT Oxygen Saturation - - Inhaled Oxygen Concentration - - Weight 139 kg (306 lb) 06/15/2025 5:14 PM EDT Height - - Body Mass Index 39.29 12/11/2024 9:53 AM EDT documented in this encounter Progress Notes * Kesha Morgan NP - 06/15/2025 5:20 PM EDT SUBJECTIVE: Pepito Hwang is a 29 y.o. male who presents to the [facility] in [place] for a sick visit. Denies recent illness, injury, or hospitalization. HPI Pepito informs he was seen at urgent care 2 months ago for urinary symptoms which turned out to be urine infection . States he needed antibiotic, but traveled to [place] and therefore did not receive treatment. Verbalizes burning with urination accompanied by pain and pressure in bilateral flank areas. Denies fever, chills, history of kidney stones, abdominal pain or obvious hematuria. Would like to undergo STI testing Very concerned about BP being elevated. Reports daily compliance with lisinopril 20 mg. Review of Systems Constitutional: Negative. Negative for chills and fever. HENT: Negative. Negative for congestion and sore throat. Eyes: Negative for discharge. Respiratory: Negative for cough, chest tightness and shortness of breath. Cardiovascular: Negative for chest pain and palpitations. Gastrointestinal: Negative. Negative for abdominal pain, constipation, diarrhea and nausea. Genitourinary: Positive for dysuria and flank pain. Negative for difficulty urinating, frequency and urgency. Musculoskeletal: Negative for arthralgias and myalgias. Skin: Negative for rash. Neurological: Negative. Negative for dizziness, speech difficulty, light- headedness and headaches. Hematological: Negative. Psychiatric/Behavioral: Negative for behavioral problems, self-injury and suicidal ideas. The patient is not nervous/anxious. OBJECTIVE: Vitals: 06/15/25 1714 06/15/25 1808 BP: (!) 163/104 (!) 146/84 BP Location: Left arm Left arm Patient Position: Sitting Sitting BP Cuff Size: Large adult Pulse: 101 Resp: 20 Temp: 97.5 ??F (36.4 ??C) TempSrc: Oral Weight: 306 lb (139 kg) Office Visit on 06/15/2025 Component Date Value Ref Range Status Color, UA 06/15/2025 Dark Vaishnavi Final Clarity, UA 06/15/2025 Clear Final Glucose, UA 06/15/2025 Negative Final Bilirubin, UA 06/15/2025 Few 15 Final small Ketones, UA 06/15/2025 Positive Final trace Spec Grav, UA 06/15/2025 1.020 Final Blood, UA 06/15/2025 Negative Negative, None Detected Final pH, UA 06/15/2025 7.0 Final Protein, UA 06/15/2025 Many Final 100mg/dL Urobilinogen, UA 06/15/2025 4.0 Final Leukocytes, UA 06/15/2025 Negative Negative, Rare, Trace Final Nitrite, UA 06/15/2025 Negative Negative, None Detected Final Appearance, UA 06/15/2025 clear Final QC Media Lot # 06/15/2025 [id number] Final Lot# Expiration Date 06/15/2025 63,026 Final Problem List[1] Physical Exam Vitals reviewed. Constitutional: General: He is not in acute distress. Appearance: Normal appearance. He is obese. He is not ill-appearing. HENT: Head: Normocephalic and atraumatic. Right Ear: External ear normal. Left Ear: External ear normal. Nose: Nose normal. Eyes: General: No scleral icterus. Extraocular Movements: Extraocular movements intact. Cardiovascular: Rate and Rhythm: Normal rate and regular rhythm. Pulses: Normal pulses. Heart sounds: Normal heart sounds. Pulmonary: Effort: Pulmonary effort is normal. No respiratory distress. Breath sounds: Normal breath sounds. Abdominal: Tenderness: There is no abdominal tenderness. There is no right CVA tenderness or guarding. Musculoskeletal: General: Normal range of motion. Cervical back: Normal range of motion. Neurological: General: No focal deficit present. Mental Status: He is alert and oriented to person, place, and time. Gait: Gait normal. Psychiatric: Mood and Affect: Mood normal. Behavior: Behavior normal. Assessment/Plan Diagnoses and all orders for this visit: Dysuria Comments: -POCT UA negative for infection. will send for culture and treat accordingly as necessary -recommend increase water intake -renal US ordered to eval for renal stones or other possible abnormality -return precautions reviewed Orders: - POCT Urinalysis - Culture, Urine, Routine; Future Screening examination for STI - Syphilis Screen; Future - HIV-1/2 Antigen and Antibodies, Fourth Generation, with Reflexes; Future - Chlamydia/N. Gonorrhoeae, PCR, Urine - Trichomonas RNA (Urine/Vaginal) Bilateral flank pain - US RENAL BI; Future Bilirubin in urine Comments: -elevated uribilinogen noted on POCT UA -discussed finding with patient -ddx include hemolytic anemia, acute/viral hepatitis, or alcohol associated hepatitis -work-up labs ordered Orders: - Hepatic Function Panel; Future - CBC auto differential; Future - Reticulocyte Count; Future - Hepatitis A,B,C Profile; Future Elevated blood pressure reading in office with diagnosis of hypertension Comments: -repeat BP with slight improvement -med compliance encouraged -recommend low salt/low fat diet and routine physical activity -scheduled f/u with team RN Follow-up with PCP as scheduled for routine health or sooner as needed [1] Patient Active Problem List Diagnosis Hyperlipidemia Hypertension Acute pain of right shoulder Hospital discharge follow-up 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 Allergic rhinitis Hyperinsulinism Obesity Elevated liver enzymes Umbilical hernia without obstruction and without gangrene Chronic nasal congestion Encounter for preventive health examination documented in this encounter Plan of Treatment Upcoming Encounters Date Type Department Care Team (Late st Contact Info) Description 06/23/2025 11:30 AM EDT Clinical Support [facility] [address] [place] [phone] Scheduled Orders Name Type Priority Associated Diagnoses Orde r Schedule Syphilis Screen Lab Routine Screening examination for STI Expected: 06/15/2025 (Approximate), Expires: 06/15/2026 HIV-1/2 Antigen and Antibodies, Fourth Generation, with Reflexes Lab Routine Screening examination for STI Expected: 06/15/2025 (Approximate), Expires: 06/15/2026 Chlamydia/N. Gonorrhoeae, PCR, Urine Lab Routine Screening examination for STI Ordered: 06/15/2025 Trichomonas RNA (Urine/Vaginal) Lab Routine Screening examination for STI Ordered: 06/15/2025 Culture, Urine, Routine Microbiology Routine Dysuria Expected: 06/15/2025 (Approximate), Expires: 06/15/2026 US RENAL BI Imaging Routine Bilateral flank pain Expected: 06/15/2025, Expires: 06/15/2026 Hepatic Function Panel Lab Routine Bilirubin in urine Expected: 06/15/2025 (Approximate), Expires: 06/15/2026 CBC auto differential Lab Routine Bilirubin in urine Expected: 06/15/2025 (Approximate), Expires: 06/15/2026 Reticulocyte Count Lab Routine Bilirubin in urine Expected: 06/15/2025 (Approximate), Expires: 06/15/2026 Hepatitis A,B,C Profile Lab Routine Bilirubin in urine Expected: 06/16/2025, Expires: 06/16/2026 documented as of this encounter Procedures Procedure Name Priority Date/Time Associated Diagnosis Comments POCT URINALYSIS DIPSTICK Routine 06/15/2025 5:58 PM EDT Dysuria documented in this encounter Results * POCT Urinalysis (06/15/2025 5:58 PM EDT) Color, UA Dark Vaishnavi Clarity, UA Clear Glucose, UA Negative Bilirubin, UA Few 15 Comment:small Ketones, UA Positive Comment:trace Spec Grav, UA 1.020 Blood, UA Negative Negative, None Detected pH, UA 7.0 Protein, UA Many Comment:100mg/dL Urobilinogen, UA 4.0 Leukocytes, UA Negative Negative, Rare, Trace Nitrite, UA Negative Negative, None Detected Appearance, UA clear QC Media Lot # [id number] Lot# Expiration Date 63,026 Urine 06/15/2025 5:58 PM EDT Kesha Morgan REMOTE INPATIENT CODER POINT OF CARE TEST ENTER/EDIT O RDERABLES Final Result documented in this encounter Visit Diagnoses Diagnosis Dysuria- Primary Screening examination for STI Bilateral flank pain Abdominal pain, unspecified site Bilirubin in urine Biliuria Elevated blood pressure reading in office with diagnosis of hypertension documented in this encounter Additional Health Concerns Assessment Noted Time PHQ-9 Depression Total Score: 0 07/04/20 24 1:52 PM EDT documented as of this encounter Care Teams Engraving Plate Maker Relationship Specialty Start Date End Date Haylee Sánchez ANP [address] [place] [address] PCP - General Family Medicine 05/10/21 documented as of this encounter
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
--- OUTSIDE RECORDS SUMMARY | 2025-06-16 13:09 | XMS_ITS | Encounter Summary ---
Author Organization [employer] Address 75 [facility] 7t [place] [address] Care Team Providers Care Beater And Pulper Feeder Name Role Phone Haylee Sánchez Primary Care Provider [phone] Encounter Details Date Type Department Care Team ([facility] Contact Info) Description 01/04/2023 Orders Only [facility] MED & PEDS [address] [place] [address] Ruthie Miles LPN Social History Tobacco Use [...] Description 06/23/2025 11:30 AM EDT Clinical Support [facility] MEDICINE [address] [place] [address] documented as of this encounter Visit Diagnoses Not on filedocumented in this encounter Additional Health Concerns Assessment Noted Time PHQ-9 Depression Total Score: 0 12/29/19 23 11:22 AM EDT documented as of this encounter Care Teams Beater And Pulper Feeder Relationship Specialty Start Date End Date Haylee Sánchez ANP [address] [place] [phone] PCP - General Family Medicine 05/10/21 documented as of this encounter
--- OUTSIDE RECORDS SUMMARY | 2025-06-16 13:09 | XMS_ITS | Encounter Summary ---
Author Organization [employer] Address [address] [facility] 7t [place] [address] Care Team Providers Care Merchandising Representative Name Role Phone Haylee Sánchez Primary Care Provider [phone] Reason for Visit * Reason Comments Med Refill Encounter Details Date Type Department Care Team (Late st Contact Info) Description 07/18/2024 Refill [facility] MED[facility]INE [address] [place] [address] Haylee Sánchez ANP [address] [place] [address] Social History Tobacco Use Types Packs/Day Years [...] Description 06/23/2025 11:30 AM EDT Clinical Support [facility] [address] [place] [address] documented as of this encounter Visit Diagnoses Not on filedocumented in this encounter Additional Health Concerns Assessment Noted Time PHQ-9 Depression Total Score: 0 07/04/20 24 1:52 PM EDT documented as of this encounter Care Teams Merchandising Representative Relationship Specialty Start Date End Date Haylee Sánchez ANP [address] [place] [address] PCP - General Family Medicine 05/10/21 documented as of this encounter
--- OUTSIDE RECORDS SUMMARY | 2025-06-16 13:09 | XMS_ITS | Encounter Summary ---
Author Organization [employer] Address [address] [facility] 7t [place] [address] Care Team Providers Care Chopper Feeder Name Role Phone Haylee Sánchez Primary Care Provider [phone] Encounter Details Date Type Department Care Team (Late st Contact Info) Description 04/12/2023 Orders Only [facility] MEDICINE [address] [place] [address] Merlyn Rizvi LPN Social History Tobacco Use [...] Description 06/23/2025 11:30 AM EDT Clinical Support [facility] [address] [place] [address] documented as of this encounter Visit Diagnoses Not on filedocumented in this encounter Additional Health Concerns Assessment Noted Time PHQ-9 Depression Total Score: 0 12/29/19 23 11:22 AM EDT documented as of this encounter Care Teams Chopper Feeder Relationship Specialty Start Date End Date Haylee Sán[place] [address] PCP - General Family Medicine 05/10/21 documented as of this encounter
--- OUTSIDE RECORDS SUMMARY | 2025-06-16 13:09 | XMS_ITS | Encounter Summary ---
Author Organization [employer] Address [address] [facility] 7t [place] [address] Care Team Providers Care Bush Hog Operator Name Role Phone Haylee Sánchez Primary Care Provider Encounter Details Date Type Department Care Team ([facility] Contact Info) Description 03/13/2023 Orders Only [facility] CH[facility] MED & PEDS [address] [place] [address] Ruthie Miles LPN Social History Tobacco Use [...] Description 06/23/2025 11:30 AM EDT Clinical Support [facility] MEDICINE [address] [place] [address] documented as of this encounter Visit Diagnoses Not on filedocumented in this encounter Additional Health Concerns Assessment Noted Time PHQ-9 Depression Total Score: 0 12/29/19 23 11:22 AM EDT documented as of this encounter Care Teams Bush Hog Operator Relationship Specialty Start Date End Date Haylee Sánchez ANP [address] [place] [address] PCP - General Family Medicine 05/10/21 documented as of this encounter
--- OUTSIDE RECORDS SUMMARY | 2025-06-16 13:09 | XMS_ITS | Encounter Summary ---
Author Organization [employer] Address [address] [facility] 7t [place] [address] Care Team Providers Care Oil Burner Installer Name Role Phone Haylee Sánchez Primary Care Provider [phone] Reason for Visit * Reason Comments Med Refill Encounter Details Date Type Department Care Team (Late st Contact Info) Description 01/27/2025 Refill [facility] MEDICINE [address] [place] [address] Haylee Sánchez ANP [address] [place] [address] Class 3 severe obesity with serious comorbidity [...] Description 06/23/2025 11:30 AM EDT Clinical Support [facility] MEDICINE [address] [place] [address] documented as of this encounter Visit Diagnoses Diagnosis Class 3 severe obesity with serious comorbidity and body mass index (BMI) of 40.0 to 44.9 in adult, unspecified obesity type (HCC) documented in this encounter Additional Health Concerns Assessment Noted Time PHQ-9 Depression Total Score: 0 07/04/20 24 1:52 PM EDT documented as of this encounter Care Teams Oil Burner Installer Relationship Specialty Start Date End Date Haylee Sánchez ANP [address] [place] [address] PCP - General Family Medicine 05/10/21 documented as of this encounter
--- OUTSIDE RECORDS SUMMARY | 2025-06-16 13:09 | XMS_ITS | Encounter Summary ---
Author Organization [employer] Address [address] [facility] 7t [place] [address] Care Team Providers Care Model Maker Fiberglass Name Role Phone Haylee Sánchez Primary Care Provider [phone] Reason for Visit * Reason Comments Med Change Request Encounter Details Date Type Department Care Team (Late st Contact Info) Description 09/01/2024 Refill [facility] [address] [place] [address] Haylee Sánchez ANP [address] [place] [address] Musculoskeletal pain Social History Tobacco Use Types [...] Description 06/23/2025 11:30 AM EDT Clinical Support [facility] MEDICINE [address] [place] [address] documented as of this encounter Visit Diagnoses Diagnosis Musculoskeletal pain Unspecified myalgia and myositis documented in this encounter Additional Health Concerns Assessment Noted Time PHQ-9 Depression Total Score: 0 07/04/20 24 1:52 PM EDT documented as of this encounter Care Teams Model Maker Fiberglass Relationship Specialty Start Date End Date Haylee Sánchez ANP [address] [place] [address] PCP - General Family Medicine 05/10/21 documented as of this encounter
--- OUTSIDE RECORDS SUMMARY | 2025-06-16 13:09 | XMS_ITS | Encounter Summary ---
Author Organization [employer] Address 75 [facility] 7t [place] [address] Care Team Providers Care Motion Picture Set Worker Name Role Phone Haylee Sánchez Primary Care Provider [phone] Encounter Details Date Type Department Care Team [...] Description 06/23/2025 11:30 AM EDT Clinical Support [facility] MEDICINE [address] [place] [address] documented as of this encounter Visit Diagnoses Not on filedocumented in this encounter Care Teams Motion Picture Set Worker Relationship Specialty Start Date End Date Haylee Sánchez ANP [address] [place] [address] PCP - General Family Medicine 05/10/21 documented as of this encounter
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
--- OUTSIDE RECORDS SUMMARY | 2025-06-16 13:09 | XMS_ITS | Encounter Summary ---
Author Organization [employer] Address [address] [facility] 7t [place] [address] Care Team Providers Care Crew Leader Gluing Name Role Phone Haylee Sánchez Primary Care Provider [phone] Reason for Visit * Reason Comments Med Refill Encounter Details Date Type Department Care Team ([facility] Contact Info) Description 12/13/2022 Refill [facility] [address] [place] [address] Vasyl Roy FNP Allergic rhinitis, unspecified seasonality, [...] Department Care Team (Late Contact Info) Description 06/23/2025 11:30 AM EDT Clinical Support [facility] MED[facility]INE [address] [place] [address] documented as of this encounter Visit Diagnoses Diagnosis Allergic rhinitis, unspecified seasonality, unspecified trigger Neck pain Cervicalgia Foraminal stenosis of cervical region documented in this encounter Care Teams Crew Leader Gluing Relationship Specialty Start Date End Date Haylee Sánchez ANP [address] [place] [address] PCP - General Family Medicine 05/10/21 documented as of this encounter
--- OUTSIDE RECORDS SUMMARY | 2025-06-16 13:09 | XMS_ITS | Encounter Summary ---
Author Organization [employer] Address 75 [facility] 7t [place] [address] Care Team Providers Care Library Paraprofessional Name Role Phone Haylee Sánchez Primary Care Provider [phone] Reason for Visit * Reason Comments Med Refill Encounter Details Date Type Department Care Team (Late st Contact Info) Description 08/22/2023 Refill [facility] [address] [place] [address] Alicia Barajas MD [address] [place] [address] Social History Tobacco Use Types Packs/Day Years [...] Description 06/23/2025 11:30 AM EDT Clinical Support [facility] [address] [place] [address] documented as of this encounter Visit Diagnoses Not on filedocumented in this encounter Additional Health Concerns Assessment Noted Time PHQ-9 Depression Total Score: 0 12/29/19 23 11:22 AM EDT documented as of this encounter Care Teams Library Paraprofessional Relationship Specialty Start Date End Date Haylee Sánchez ANP [address] [place] [address] PCP - General Family Medicine 05/10/21 documented as of this encounter
--- OUTSIDE RECORDS SUMMARY | 2025-06-16 13:09 | XMS_ITS | Encounter Summary ---
Author Organization [employer] Address 75 [facility] 7t [place] [address] Care Team Providers Care Draw Bench Operator Helper Name Role Phone Haylee Sánchez Primary Care Provider [phone] Encounter Details Date Type Department Care Team (Latest Contact Info) Description 06/15/2025 Travel Social History Tobacco Use Types Packs/Day [...] Description 06/23/2025 11:30 AM EDT Clinical Support [facility] MEDICINE [address] [place] [address] documented as of this encounter Visit Diagnoses Not on filedocumented in this encounter Additional Health Concerns Assessment Noted Time PHQ-9 Depression Total Score: 0 07/04/20 24 1:52 PM EDT documented as of this encounter Care Teams Draw Bench Operator Helper Relationship Specialty Start Date End Date Haylee Sánchez ANP [address] [place] [address] PCP - General Family Medicine 05/10/21 documented as of this encounter
--- OUTSIDE RECORDS SUMMARY | 2025-06-16 13:09 | XMS_ITS | Encounter Summary ---
Author Organization [employer] Address 75 [facility] 7t [place] [address] Care Team Providers Care Account Information Clerk Name Role Phone Haylee Sánchez Primary Care Provider [phone] Reason for Visit * Reason Comments Med Refill Encounter Details Date Type Department Care Team (Late st Contact Info) Description 09/19/2024 Refill [facility] MEDICINE [address] [place] [address] Haylee Sánchez ANP [address] [place] [address] Class 3 severe obesity with serious comorbidity [...] Description 06/23/2025 11:30 AM EDT Clinical Support [facility] MED[facility]INE [address] [place] [address] documented as of this encounter Visit Diagnoses Diagnosis Class 3 severe obesity with serious comorbidity and body mass index (BMI) of 40.0 to 44.9 in adult, unspecified obesity type (HCC) documented in this encounter Additional Health Concerns Assessment Noted Time PHQ-9 Depression Total Score: 0 07/04/20 24 1:52 PM EDT documented as of this encounter Care Teams Account Information Clerk Relationship Specialty Start Date End Date Haylee Sánchez ANP [address] [place] [address] PCP - General Family Medicine 05/10/21 documented as of this encounter
[2025-06-16 13:45] LABS: MANUAL DIFF FLAG NO
[2025-06-16 13:46] LABS: Hematocrit 48.7 % (42.0-52.0); Hemoglobin 16.9 g/dl (14.0-18.0); Imm Gran Abs Auto 0.02 X10*3/uL (0.00-0.03); Imm Gran Pct Auto 0.3 % (0.0-0.4); Lymphocytes Absolute Auto 1.6 X10*3/uL (1.2-4.9); Mean Corpuscular HGB Conc 34.7 g/dl (31.0-36.0); Mean Corpuscular Hemoglobin 31.6 pg (27.0-33.0); Mean Corpuscular Volume 91.2 fL (80.0-98.0); NRBC Abs Auto 0.000 X10*3/uL (0.0-0.012); NRBC Pct Auto 0.0 /100WBC (0.0-0.2); Platelet Count 162 X10*3/uL (160-400); Red Blood Count 5.34 X10*6/uL (4.60-5.80); Reticulocytes Absolute 0.107 X10*6/uL (0.026-0.095); White Blood Count 6.7 X10*3/uL (4.8-10.8)
[2025-06-16 14:54] LABS: Alanine Aminotransferase 136 U/L (0-40); Albumin Level 4.2 g/dL (3.5-5.0); Alkaline Phosphatase 73 U/L (39-117); Aspartate Amino Transferase 111 U/L (5-37); Total Protein 7.4 g/dL (6.5-8.0)
[2025-06-16 15:04] LABS: CT PCR Urine NOT DETECTED (Not Detect.); NG PCR Urine NOT DETECTED (Not Detect.)
[2025-06-17 04:59] LABS: Syphilis Screen Nonreactive (Nonreactive)
[2025-06-17 05:53] LABS: HBS Num1 0.72 mIU/mL (0-7.99); HBc Num1 0.11 S/CO (0.00-0.79); HBsAGNum1 0.46 S/CO (0.00-0.99); HIV Num 1 0.05 S/CO (0.00-0.99); Hepatitis A Antibody IgM 0.19 Index (0-0.79); Hepatitis B Surface Antigen Negative (Negative); ~HepC Num1 0.12 S/CO (0.00-0.79); ~Hepatitis A Antibody IgM Nonreactive (Nonreactive); ~Hepatitis B Surface Antibody NONREACTIVE (Nonreactive); ~Hepatitis C Antibody Nonreactive (Nonreactive)
[2025-06-19 00:19] LABS: TS Negative Control Passed; TS Panel A 0; TS Panel B 0; TS Positive Control Passed; TSpotTB Negative (Negative)
== END 2025-06-16 11:44 | disposition home or self-care (01) ==
LOC: HO.HHCL 11:43
PROVIDERS: PCP Nurse Practitioner Primary Care; Visit Provider Nurse Practitioner
DX: Z11.3 Encounter for screening for infections with a predominantly sexual mode of transmission (principal); Z02.89 Encounter for other administrative examinations; R82.2 Biliuria; Z11.4 Encounter for screening for human immunodeficiency virus [HIV]; Z11.59 Encounter for screening for other viral diseases; Z20.2 Contact with and (suspected) exposure to infections with a predominantly sexual mode of transmission; Z11.1 Encounter for screening for respiratory tuberculosis
CPT/HCPCS: 36415; 80076; 85025; 85045; 86481; 86704; 86706; 86709; 86780; 86803; 87340; 87389; 87491; 87591; 87661

== ENCOUNTER 2025-06-27 12:42 | Emergency (ER) | payer MEDICAID, SELFPAY ==
--- NOTE | ~2025-06-27 | XR_ITS ---
CLINICAL HISTORY: cough 2 view chest x-ray Comparison: CR/SR - XR CHEST 2 VIEWS - 08/03/24 10:33 EST CR/SR - XR CHEST 2 VIEWS - 01/14/24 08:47 EDT Findings: No consolidation or effusion. Heart size is normal. No acute fracture. IMPRESSION: 1. No acute findings. This document has been electronically signed by: Rose Pineda MD on 06/27/2025 14:04:23
[2025-06-27 12:45] VITALS: BP 145/88; PULSE 104; RESP 20; TEMP 36.8; O2SAT 98; BMI 39.7
--- NOTE | 2025-06-27 12:46 | ED_ITS ---
HPI - General Adult General Chief complaint: Dyspnea Stated complaint: cough diff breathing Time Seen by Provider: 06/27/25 13:10 Source: patient and RN notes reviewed Mode of arrival: ambulatory Limitations: no limitations History of Present Illness ED Provider: Carmita Link PA-C HPI narrative: This is a 29 year old male, with a past medical history of HTN on lisinopril, who presents to the ER with concerns of nonproductive cough and congestion x 3 days. Patient reports that he was sick with sinus infection last week, was prescribed doxycycline, which he did not complete the full course of. He states that 3 days ago he developed a dry cough, with slight shortness for breath, denies any fevers, chills, sick contact, chest pain, abdominal pain, nausea, vomiting or diarrhea. States that he used his son's inhaler at home which provided him with some relief. No other complaints or concerns at this time. MD complaint: Cough, congestion Onset (ago): day(s) Associated symptoms: denies other symptoms Treatments prior to arrival: none Related Data Home Medications ?Medication ?Instructions ?Recorded ?Confirmed lisinopril 20 mg tablet 20 mg PO DAILY 12/24/2411/11 omega-3 acid ethyl esters 1 gram 2 cap PO BID 12/24/24 01/16/25 capsule omeprazole 20 mg capsule,delayed 20 mg PO DAILY 01/16/25 release sucralfate 1 gram tablet 1 g PO QID 12/24/24 01/16/25 tirzepatide (weight loss) 2.5 2.5 mg subcut QWEEK 06/1101/16/25 mg/0.5 mL subcutaneous pen injector (Zepbound) Previous Rx's ?Medication ?Instructions ?Recorded benzonatate 100 mg capsule 100 mg PO BID PRN cough #20 caps 08/03/24 hydroxyzine HCl 25 mg tablet 25 mg PO BID PRN anxiety #14 tabs 08/03/24 ibuprofen 600 mg tablet 600 mg PO Q6H PRN pain #30 t abs 01/20/25 azithromycin 250 mg tablet 250 mg PO DAILY 4 days #4 t abs 06/27/25 benzonatate 200 mg capsule 200 mg PO TID PRN cough #15 caps 06/27/25 Allergies Allergy/AdvReac Type Severity Reaction Status Date / Time minerals (From [facility]) Allergy Itchy Eyes Verified 06/27/25 12:45 pollen extracts Allergy Itchy Eyes Verified 06/27/25 12:45 vitamin B complex and C Allergy Itchy Eyes Verified 06/27/25 12:45 (From [facility]) vitamin E (d-alpha Allergy Itchy Eyes Verified 06/27/25 12:45 tocopherol) (From [facility]) Review of Systems 2 Review of Systems: Constitutional : No Fever, No Chills ENT/Mouth : No sore throat, No Rhinorrhea Eyes: No Eye Pain, No Swelling, No Redness Cardiovascular : No Chest Pain, No SOB Respiratory : No Cough, No Sputum Gastrointestinal : No Nausea, No Vomiting, No Diarrhea, No abdominal Pain Genitourinary : No Dysuria, No Hematuria Musculoskeletal : No joint pain, No Myalgias, No Joint Swelling Skin : No Skin Lesions Neuro : No Weakness, No Numbness, No Headache All other systems reviewed and are negative Yes all other systems are reviewed and are negative Constitutional: Constitutional: Reports as per [facility] Past Medical History Attestation statement: The following information was validated with the patient. Medical History Umbilical hernia (01/20/25) Obesity (BMI 30-39.9) GERD (gastroesophageal reflux disease) Anxiety Hx of sinusitis (07/2024) Fatty liver Umbilical hernia HTN (hypertension) Pre-diabetes Surgical History History of surgery on arm Hx of tonsillectomy Social History Social History Household Members: Significant Other Housing: Apartment Are you a primary manager medicare marketing to a significant other at home: No Do you presently have visiting nurse or other home services: No Alcohol intake: current Alcohol intake frequency: a few times a week Alcohol type: beer and wine Patient Tobacco Use Status: Never used Tobacco Smoked in Last 30 Days: No Use of substances other than those prescribed or required for medical reasons: No Advance Directives: No Advance Directives Information Provided: No Do you have a plan to hurt others: No Plan Physical Exam ED Vital Signs: Vital Signs - 24 hr 06/27/25 12:45 10/11/25 14:41 Temperature 98.3 F 98.3 F Pulse Rate 104 H 104 H Respiratory Rate 20 20 Blood Pressure 145/88 H 145/88 H Pulse Oximetry 98 98 Oxygen Delivery Method Room Air BMI result Body Mass Index 39.7 Const General: cooperative, comfortable and no acute distress Orientation/consciousness: patient oriented x3 Limitations: no limitations HENMT Head: Yes normal to inspection, Yes normocephalic and Yes atraumatic Ears: hearing grossly normal bilaterally and TM's normal bilaterally General nose exam: Normal external nose present Face and sinus: Yes normal facial exam Mouth: Normal oral and palatal mucosa present, oropharynx normal and moist mucous membranes Throat: Yes posterior oropharynx normal Eyes General: appearance normal, both eyes and all related structures Eyelids: Yes eyelids normal Conjunctivae: conjunctivae normal Sclerae: sclerae normal Pupils: Equal, round and reactive pupils present EOM: EOMs intact bilaterally Neck Neck: Yes normal visual inspection, Yes full ROM and Yes no lymphadenopathy Lymphatic: no lymphadenopathy noted Chest Chest palpation & inspection: normal inspection of the chest Resp Effort & Inspection: normal respiratory effort and able to speak in complete sentences Auscultation: clear to auscultation bilaterally, no crackles, no rales, no rhonchi and no wheezes Cardio Rate: regular rate Rhythm: regular rhythm Heart sounds: S1 normal heart sound present and S2 normal heart sound present GI Inspection: Yes normal to inspection Skin General skin exam: no rashes or lesions noted Trauma: no lacerations or abrasions Wounds: no wounds Neuro General: patient oriented x3 and moves all extremities Cranial nerves: Yes Equal, round and reactive pupils present Extrem General: Yes normal to inspection Right upper extremity: normal to inspection Left upper extremity: normal to inspection Right lower extremity: normal to inspection Left lower extremity: normal to inspection Course Course Course Narrative: This is a Rapid Medical Examination (RME) performed by Willy Rome PA-C in triage. Full HPI, ROS, assessment and treatment plan per primary provider in the Main ED. Hx: 29 yo M here for eval of dry cough x2 days. assoc SOB. 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 no hx asthma/copd. no fever, chills, sick contacts. hx PNA. PE/vitals: lungs clear. bronchospastic cough. Plan: screening labs, viral swabs, cxr Medical Decision Making Medical Decision Making MDM Narrative: This is a 29-year-old male who presents emergency department complaints of nonproductive cough for the last 10 days. On arrival, patient with mildly elevated at 145/88, pulse 104, this is likely secondary to taking albuterol prior to his evaluation. Labs were obtained prior to my evaluation, he has no leukocytosis, stable H&H, chemistry revealing elevated AST and ALT at 85 and 124 respectively, he has a history of elevated liver transaminases, these are similar to previous. COVID negative, influenza negative. Chest x-ray unremarkable for any acute process. Discussed findings with patient. Discussed with patient that given he was sick last week, this could be progression of a upper respiratory infection, he did not complete his full course of antibiotics therefore will administer azithromycin. I also stressed the importance of following up with his primary care as dry cough could be associated with lisinopril adverse side effect. He has a follow-up with his doctor on Sunday therefore he will follow-up with his primary care physician regarding this. He is given his 1st dose as azithromycin as well as Tessalon in the department. He was given strict return precautions, he understands and agrees with plan. Patient stable for discharge. Differential Diagnosis Differential Diagnoses: The differential diagnosis associated with the presentation includes Cough, URI, COVID, flu, pneumonia-unlikely Lab Data [facility] Lab Attestation statement: I reviewed the patient's lab results. See MDM 06/27/25 12:54 06/27/25 12:54 Labs: Lab Results 06/27/25 Range/Units 12:54 WBC 7.3 (4.8-10.8) X10*3/uL RBC 5.56 (4.60-5.80) X10*6/uL Hgb 17.5 (14.0-18.0) g/dl Hct 51.3 (42.0-52.0) % MCV 92.3 (80.0-98.0) fL MCH 31.5 (27.0-33.0) pg MCHC 34.1 (31.0-36.0) g/dl RDW 12.2 (11.0-16.0) % Plt Count 210 D (160-400) X10*3/uL MPV 9.4 (9.4-12.4) fL Immature Gran % (Auto) 0.3 (0.0-0.4) % Neut % (Auto) 63.6 (45-73) % Lymph % (Auto) 26.8 (20-40) % Arthur % (Auto) 6.4 (2-11) % Eos % (Auto) 2.5 (0-4) % Baso % (Auto) 0.4 (0-2) % Lymph # (Auto) 2.0 (1.2-4.9) X10*3/uL Arthur # (Auto) 0.5 (0.1-1.2) X10*3/uL Eos # (Auto) 0.2 (0.0-0.4) X10*3/uL Baso # (Auto) 0.0 (0.0-0.2) X10*3/uL Abs Immat Gran (auto) 0.02 (0.00-0.03) X10*3/uL Absolute Neuts (auto) 4.7 (2.0-8.3) x10*3/uL Absolute Nucleated RBC 0.000 (0.0-0.012) X10*3/uL Nucleated RBC % (auto) 0.0 (0.0-0.2) /100WBC Sodium 141 (135-145) mmol/L Potassium 4.1 (3.3-5.1) mmol/L Chloride 105 (96-108) mmol/L Carbon Dioxide 25 (22-29) mmol/L Anion Gap 15 (12-20) BUN 9 (9-16) mg/dL Creatinine 0.97 (0.5-1.4) mg/dL Estim Creat Clear Calc 166.0 Estimated GFR > 60 Random Glucose 125 H (60-115) mg/dL Calcium 8.9 (8.4-10.2) mg/dL Magnesium 2.2 (1.6-2.6) mg/dL Total Bilirubin 0.8 (0.0-1.0) mg/dL AST 85 H (5-37) U/L ALT 124 H (0-40) U/L Alkaline Phosphatase 76 (39-117) U/L Total Protein 8.0 (6.5-8.0) g/dL Albumin 4.7 (3.5-5.0) g/dL COVID-19 (KIMBERLY) Negative (Negative) COVID-19 Clin Com See Note Influenza Type A (XI) Negative (Negative) Influenza Type B (XI) Negative (Negative) Influenza A & B Note See Note Radiology Impression Discussion of test interpretation with radiology: I have reviewed the radiologist's reading. Radiologist Impression: CLINICAL HISTORY: cough 2 view chest x-ray Comparison: CR/SR - XR CHEST 2 VIEWS - 08/03/24 10:33 EST CR/SR - XR CHEST 2 VIEWS - 01/14/24 08:47 EDT Findings: No consolidation or effusion. Heart size is normal. No acute fracture. IMPRESSION: 1. No acute findings. This document has been electronically signed by: Rose Pineda MD on 06/27/2025 14:04:23 Dictated By: Rose Pineda MD Discharge Plan Discharge Clinical Impression: Upper respiratory infection, Cough Patient Disposition: Home, Self-Care Instructions: Upper Respiratory Infection (ED) Additional Instructions: You were seen in the emergency department due to a cough. You tested negative for COVID and flu. Your chest x-ray does not show any evidence of pneumonia. Drink plenty of fluids get plenty of rest. Your symptoms may be attributed to a URI or it may be contributed to an adverse side effect of your blood pressure medication therefore it is very important that you follow-up with your primary care physician as scheduled on Sunday to discuss this matter. Given you were sick 1 week ago, and persisted have symptoms, will treat you with antibiotics, please take as prescribed. We gave you your 1st dose here in the department. Resume azithromycin tomorrow. You may take Tessalon tonight. If any new or worsening symptoms occur including but not limited to severe chest pain or shortness of breath, please seek emergent care. Prescriptions: New azithromycin 250 mg tablet 250 mg PO DAILY 4 Days Qty: 4 0RF Rx Instructions: start on day 2 of therapy benzonatate 200 mg capsule 200 mg PO TID PRN (Reason: cough) Qty: 15 0RF No Action hydroxyzine HCl 25 mg tablet 25 mg PO BID PRN (Reason: anxiety) Qty: 14 0RF benzonatate 100 mg capsule 100 mg PO BID PRN (Reason: cough) Qty: 20 0RF ibuprofen 600 mg tablet 600 mg PO Q6H PRN (Reason: pain) Qty: 30 0RF lisinopril 20 mg tablet 20 mg PO DAILY omeprazole 20 mg capsule,delayed release(DR/EC) 20 mg PO DAILY sucralfate 1 gram tablet 1 g PO QID omega-3 acid ethyl esters 1 gram capsule 2 cap PO BID Zepbound 2.5 mg/0.5 mL pen injector 2.5 mg subcut QWEEK Interventions: ED Discharge Assessment Last Done: 06/27/25 14:41 Discharge Date/Time: 06/27/25 14:42 Print Language: Nepalese
[2025-06-27 12:59] LABS: Hematocrit 51.3 % (42.0-52.0); Hemoglobin 17.5 g/dl (14.0-18.0); Imm Gran Abs Auto 0.02 X10*3/uL (0.00-0.03); Imm Gran Pct Auto 0.3 % (0.0-0.4); Lymphocytes Absolute Auto 2.0 X10*3/uL (1.2-4.9); MANUAL DIFF FLAG NO; Mean Corpuscular HGB Conc 34.1 g/dl (31.0-36.0); Mean Corpuscular Hemoglobin 31.5 pg (27.0-33.0); Mean Corpuscular Volume 92.3 fL (80.0-98.0); NRBC Abs Auto 0.000 X10*3/uL (0.0-0.012); NRBC Pct Auto 0.0 /100WBC (0.0-0.2); Platelet Count 210 X10*3/uL (160-400); Red Blood Count 5.56 X10*6/uL (4.60-5.80); White Blood Count 7.3 X10*3/uL (4.8-10.8)
[2025-06-27 13:13] LABS: Alanine Aminotransferase 124 U/L (0-40); Albumin Level 4.7 g/dL (3.5-5.0); Alkaline Phosphatase 76 U/L (39-117); Anion Gap 15 (12-20); Aspartate Amino Transferase 85 U/L (5-37); Blood Urea Nitrogen 9 mg/dL (9-16); Calcium 8.9 mg/dL (8.4-10.2); Carbon Dioxide 25 mmol/L (22-29); Chloride 105 mmol/L (96-108); Creatinine Clr Calc Pharmacy 166.0; Estimated Glomerular Filt Rate > 60; Magnesium 2.2 mg/dL (1.6-2.6); Potassium 4.1 mmol/L (3.3-5.1); Sodium 141 mmol/L (135-145); Total Protein 8.0 g/dL (6.5-8.0)
[2025-06-27 13:20] LABS: IDNOW Serial# 55D5AD1C; Influenza B2 Negative (Negative)
[2025-06-27 13:22] LABS: COVID-19 Test Negative (Negative); IDNOW Serial# 58CA691E
[2025-06-27 14:41] VITALS: BP 145/88; PULSE 104; RESP 20; TEMP 36.8; O2SAT 98
== END 2025-06-27 14:42 | disposition home or self-care (01) ==
PROVIDERS: Physician Assistant Medical; Emergency Provider Emergency Medicine; PCP Nurse Practitioner Primary Care
DX: J06.9 Acute upper respiratory infection, unspecified (principal); R06.02 Shortness of breath; R05.9 Cough, unspecified; I10 Essential (primary) hypertension; R09.89 Other specified symptoms and signs involving the circulatory and respiratory systems; Z79.899 Other long term (current) drug therapy; Z11.52 Encounter for screening for COVID-19
CPT/HCPCS: 36415; 71046; 80053; 83735; 85025; 87502; 87635; 99283; 99284

== ENCOUNTER → 2025-06-27 12:44 | Outpatient (BNV) | payer MEDICAID, SELFPAY | PROVIDERS: Emergency Provider Emergency Medicine; PCP Nurse Practitioner Primary Care; Visit Provider Radiology Diagnostic Radiology | DX: R05.9 Cough, unspecified (principal) | CPT/HCPCS: 71046 ==

== ENCOUNTER 2025-06-27 22:03 | Emergency (ER) | payer MEDICAID, SELFPAY ==
--- OUTSIDE RECORDS SUMMARY | 2025-06-23 11:30 | XMS_ITS | Encounter Summary ---
Author Organization [employer] Address [address] [facility] [address] [place] [address] Care Team Providers Care Starter Cup Powder Mixer Name Role Phone Haylee Sánchez Primary Care Provider [phone] Reason for Visit * Reason Comments nurse visit BP check Encounter Details Date Type Department Care Team (Latest Contact Info) Description 06/23/2025 11:30 AM EDT Clinical Support [facility] [address] [place] [address] Katy Bravo RN Primary hypertension Social History Tobacco Use Types Packs/Day [...] Sign Reading Time Taken Comments Blood Pressure 154/88 06/23/2025 11:42 AM EDT Pulse 91 06/23/2025 11:42 AM EDT Temperature - - Respiratory Rate - - Oxygen Saturation 97% 06/23/2025 11:42 AM EDT room air Inhaled Oxygen Concentration - - Weight - - Height - - Body Mass Index - - documented in this encounter Progress Notes * Katy Bravo RN - 06/23/2025 11:30 AM EDT SUBJECTIVE: Pepito Hwang is a 29 y.o. year old male who presents for nurse visit BP check Preferred language for medical information: Macedonian Recommendations at [facility] appointment on 06/17/25: RN BP check for elevated BP. Today, Pepito Hwang does not complain of any blurred vision, shortness of breath, chest pain, dizziness, or headaches. Pepito Hwang does confirm took lisinopril 20mg. Confirmed medications taken today [x] No home BP log, pt did not worm picker home BP monitor 06/2024. Non smoker, does not drink coffee. BP Readings from Last 4 Encounters: 06/23/25 (!) 154/88 06/17/25 (!) 146/94 06/15/25 (!) 146/84 12/11/24 130/85 Pulse Readings from Last 4 Encounters: 06/23/25 91 06/17/25 94 06/15/25 101 12/11/24 80 OBJECTIVE: Vitals: 06/23/25 1142 BP: (!) 154/88 BP Location: Right arm Patient Position: Sitting BP Cuff Size: Large adult Pulse: 91 SpO2: 97% ASSESSMENT: Achieve goal blood pressure of <130/80 PLAN: Today's findings reviewed with PCP Haylee Sánchez in office. Orders as follows: - check home BP daily 30-60 min after taking lisinopril, pt given log and advised to go to [facility] pharmacy today to worm picker BP monitor kit - call [facility] if BP consistently >150/90, seek medical attention if elevated and sxs of hypertension present, reviewed sxs with pt - scheduled short term follow up with PCP 06/29/25 Called [facility] pharmacy, pharmacy to fill BP cuff now. Pepito Hwang advised to continue taking medications as directed and reinforcement of lifestyle modifications including low sodium diet and exercise were reviewed. Pt declines Hep B vaccine today. Pepito Hwang agreeable to plan discussed at today's visit. Future Appointments Date Time Provider Department Center 06/29/2025 2:15 PM REGINA Simpson MEDICINE [facility] Katy Bravo RN documented in this encounter Plan of Treatment Upcoming Encounters Date Type Department Care Team (Late st Contact Info) Description 06/29/2025 2:15 PM EDT Office Visit [facility] [address] [place] [id number] Haylee Sánchez ANP [address] [place] [address] documented as of this encounter Visit Diagnoses Diagnosis Primary hypertension Unspecified essential hypertension documented in this encounter Additional Health Concerns Assessment Noted Time PHQ-9 Depression Total Score: 0 07/04/20 24 1:52 PM EDT documented as of this encounter Care Teams Starter Cup Powder Mixer Relationship Specialty Start Date End Date Haylee Sánchez ANP [address] [place] [id number] PCP - General Family Medicine 05/10/21 documented as of this encounter
[2025-06-27 22:08] VITALS: BP 165/87; PULSE 93; RESP 18; TEMP 36.3; O2SAT 98; BMI 39.8
--- NOTE | 2025-06-27 22:12 | ED_ITS ---
HPI - Medical Clearance General Chief complaint: Medical Clearance Stated complaint: medication concern Time Seen by Provider: 06/27/25 22:12 Source: patient Mode of arrival: ambulatory Limitations: no limitations History of Present Illness ED Provider: Zuri Moctezuma PA-C HPI Narrative: Patient is a 29 year old assigned male at with a history of HTN on lisinopril presenting to the emergency department today after an accidental overdose. Patient states that he was seen here for a cough earlier today and prescribed tesslon pearls. Patient states that since his discharge he has had 3 doses and he is concerned he accidentally overdosed. Patient denies any symptoms. Patient denies any other complaints at this time. Related Information Home Medications ?Medication ?Instructions ?Recorded ?Confirmed lisinopril 20 mg tablet 20 mg PO DAILY 12/24/2411/11 omega-3 acid ethyl esters 1 gram 2 cap PO BID 12/24/24 01/16/25 capsule omeprazole 20 mg capsule,delayed 20 mg PO DAILY 01/16/25 release sucralfate 1 gram tablet 1 g PO QID 12/24/24 01/16/25 tirzepatide (weight loss) 2.5 2.5 mg subcut QWEEK 06/1101/16/25 mg/0.5 mL subcutaneous pen injector (Zepbound) Previous Rx's ?Medication ?Instructions ?Recorded benzonatate 100 mg capsule 100 mg PO BID PRN cough #20 caps 08/03/24 hydroxyzine HCl 25 mg tablet 25 mg PO BID PRN anxiety #14 tabs 08/03/24 ibuprofen 600 mg tablet 600 mg PO Q6H PRN pain #30 t abs 01/20/25 azithromycin 250 mg tablet 250 mg PO DAILY 4 days #4 t abs 06/27/25 benzonatate 200 mg capsule 200 mg PO TID PRN cough #15 caps 06/27/25 Allergies Allergy/AdvReac Type Severity Reaction Status Date / Time minerals (From [employer]) Allergy Itchy Eyes Verified 06/27/25 22:10 pollen extracts Allergy Itchy Eyes Verified 06/27/25 22:10 vitamin B complex and C Allergy Itchy Eyes Verified 06/27/25 22:10 (From [employer]) vitamin E (d-alpha Allergy Itchy Eyes Verified 06/27/25 22:10 tocopherol) (From [employer]) Review of Systems Constitutional: Constitutional: Reports as per HPI Eyes: Eyes: Reports as per HPI ENT: Reports as per HPI Cardiovascular: Cardiovascular: Reports as per HPI Respiratory: Respiratory: Reports as per HPI Gastrointestinal: Gastrointestinal: Reports as per HPI Genitourinary: Genitourinary: Reports as per HPI Musculoskeletal: Musculoskeletal: Reports as per HPI Integumentary/Breasts: Skin/Breast: Reports as per HPI Neurologic: Reports as per HPI Psychiatric: Psychiatric: Reports as per HPI Endocrine: Endocrine: Reports as per HPI Hematologic/Lymphatic: Hematologic/Lymphatic: Reports as per HPI Allergic/Immunologic: Allergic/Immunologic: Reports as per HPI [facility] Past Medical History Medical History Umbilical hernia (01/20/25) Obesity (BMI 30-39.9) GERD (gastroesophageal reflux disease) Anxiety Hx of sinusitis (07/2024) Fatty liver Umbilical hernia HTN (hypertension) Pre-diabetes Surgical History History of surgery on arm Hx of tonsillectomy Social History Social History Household Members: Significant Other Housing: Apartment Are you a primary transitions rn care coordinator to a significant other at home: No Do you presently have visiting nurse or other home services: No Alcohol intake: current Alcohol intake frequency: a few times a week Alcohol type: beer and wine Patient Tobacco Use Status: Never used Tobacco Advance Directives: No Advance Directives Information Provided: Yes Do you have a plan to hurt others: No Plan Physical Exam Vital Signs: Vital Signs: Last Vital Signs Temp 97.3 F 06/27/25 22:26 Pulse 93 06/27/25 22:26 Resp 18 06/27/25 22:26 BP 165/87 H 06/27/25 22:26 Pulse Ox 98 06/27/25 22:26 O2 Del Method Room Air 06/27/25 22:26 BMI result Body Mass Index 39.8 Medical Decision Making Medical Decision Making MDM Narrative: Patient is a 29 year old assigned male at with a history of HTN on lisinopril presenting to the emergency department today after an accidental overdose. Patient's physical exam was unremarkable. Patient did not ingest a toxic amount of the medication within the time frame since his discharge. I explained my physical exam findings to the patient. I answered all questions asked by the patient. Patient questioned if his lisinopril could be causing his cough and if he should stop taking it. I explained to the patient that it could be contributing to his cough but I don't believe that is the case given his simultaneous congestion and that he should not stop taking his lisinopril until he has consulted with his primary care provider. I stressed the importance of the patient taking his medication as directed (either prescribed or as the over the counter packaging recommends). I stressed the importance of the patient following up with his primary care provider. I stressed the importance of the patient returning to the emergency department immediately if he were to develop any dizziness, shortness of breath, difficulty breathing, chest pain, blurry vision, loss of vision, nausea, vomiting, abdominal pain, fever, chills, back pain, or any other complaints. Patient verbalized agreement and understanding with this treatment plan and discharge. Differential Diagnosis Differential Diagnoses: The differential diagnosis associated with the presentation includes Accidental overdose Admission/Observation Consideration of admission/observation: Escalation of care including admission/observation considered Patient would have been admitted to the hospital had his clinical presentation warranted hospital admission. Discharge Plan Discharge Clinical Impression: Accidental overdose Qualifiers: Encounter type: initial encounter Qualified Code(s): T50.901A - Poisoning by unspecified drugs, medicaments and biological substances, accidental (unintentional), initial encounter Patient Disposition: Home, Self-Care Instructions: Adult Overdose (ED) Additional Instructions: You did not take a lethal dose of the medication however, you should not take any more doses of the medication tonight. IF you are prescribed home medications and/or you are taking over the counter medications at home - it is very important you continue to do so as prescribed / directed unless told otherwise. Follow up with your primary care provider. Return to the emergency department immediately if your symptoms worsen or if you develop any numbness, tingling, dizziness, shortness of breath, difficulty breathing, chest pain, blurry vision, loss of vision, nausea, vomiting, abdominal pain, fever, chills, back pain, or any other complaints. Please see the information below about our Patient Portal. If you are not yet enrolled in the [facility] Patient Portal, you will receive an enrollment email invitation following your visit to any [facility] setting. You may also self-enroll in the Patient Portal by visiting our website: [email or web address] The following information is required to access the Patient Portal: - Your [facility] Medical Record Number - Your personal home email address (must match what is in your electronic medical record, Registration staff can assist with this) - Name - Date of Capabilities of the Patient Portal: - Message some providers - View upcoming appointments - Access your health summary, medical history, and visit history - View current conditions and allergies - View procedure and lab results - View your medications, including guidelines, side effects, and precautions - Complete pre-appointment questionnaires requested by your provider - Ready summary reports of your office visits and procedures To access the Patient Portal Mobile [employer], follow these directions: - Search [employer] in the [employer] Store or [employer] [place] [employer] Store - Download the [employer]ae - Search for [facility] - Enter your login/password Prescriptions: No Action hydroxyzine HCl 25 mg tablet 25 mg PO BID PRN (Reason: anxiety) Qty: 14 0RF benzonatate 100 mg capsule 100 mg PO BID PRN (Reason: cough) Qty: 20 0RF ibuprofen 600 mg tablet 600 mg PO Q6H PRN (Reason: pain) Qty: 30 0RF azithromycin 250 mg tablet 250 mg PO DAILY 4 Days Qty: 4 0RF Rx Instructions: start on day 2 of therapy benzonatate 200 mg capsule 200 mg PO TID PRN (Reason: cough) Qty: 15 0RF lisinopril 20 mg tablet 20 mg PO DAILY omeprazole 20 mg capsule,delayed release(DR/EC) 20 mg PO DAILY sucralfate 1 gram tablet 1 g PO QID omega-3 acid ethyl esters 1 gram capsule 2 cap PO BID Zepbound 2.5 mg/0.5 mL pen injector 2.5 mg subcut QWEEK Referrals: Haylee Sánchez NP [Primary Care Provider, Internal Medicine] Interventions: ED Discharge Assessment Last Done: 06/27/25 22:26 Discharge Date/Time: 06/27/25 22:27 Print Language: Amharic
--- OUTSIDE RECORDS SUMMARY | 2025-06-27 22:18 | XMS_ITS | Encounter Summary ---
Author Organization [employer] Address [address] [facility] [address]t [place] [address] Care Team Providers Care Mainframe Programmer Analyst Name Role Phone Haylee Sánchez Primary Care Provider [phone] Reason for Visit * Reason Comments Med Refill Encounter Details Date Type Department Care Team (Late st Contact Info) Description 09/19/2024 Refill [facility] [address] [place] [address] Haylee Sánchez ANP [address] [place] [address] Class 3 severe obesity with serious comorbidity [...] Description 06/29/2025 2:15 PM EDT Office Visit [facility] [address] [place] [address] Haylee Sánchez ANP [address] [place] [address] documented as of this encounter Visit Diagnoses Diagnosis Class 3 severe obesity with serious comorbidity and body mass index (BMI) of 40.0 to 44.9 in adult, unspecified obesity type (HCC) documented in this encounter Additional Health Concerns Assessment Noted Time PHQ-9 Depression Total Score: 0 07/04/20 24 1:52 PM EDT documented as of this encounter Care Teams Mainframe Programmer Analyst Relationship Specialty Start Date End Date Haylee Sánchez ANP [address] [place] [phone] PCP - General Family Medicine 05/10/21 documented as of this encounter
--- OUTSIDE RECORDS SUMMARY | 2025-06-27 22:18 | XMS_ITS | Encounter Summary ---
Author Organization [employer] Address [address] [facility] [address]t [place] [address] Care Team Providers Care Reimbursement Liaison Name Role Phone Haylee Sánchez Primary Care Provider Reason for Visit * Reason Comments Med Refill Encounter Details Date Type Department Care Team (Late st Contact Info) Description 01/27/2025 Refill [facility] [address] [place] [address] Haylee Sánchez ANP [address] [place] [address] Class 3 severe obesity with serious comorbidity [...] Description 06/29/2025 2:15 PM EDT Office Visit [facility] [address] [place] [phone] Haylee Sánchez ANP [address] [place] [address] documented as of this encounter Visit Diagnoses Diagnosis Class 3 severe obesity with serious comorbidity and body mass index (BMI) of 40.0 to 44.9 in adult, unspecified obesity type (HCC) documented in this encounter Additional Health Concerns Assessment Noted Time PHQ-9 Depression Total Score: 0 07/04/20 24 1:52 PM EDT documented as of this encounter Care Teams Reimbursement Liaison Relationship Specialty Start Date End Date Haylee Sánchez ANP [address] [place] [phone] PCP - General Family Medicine 05/10/21 documented as of this encounter
--- OUTSIDE RECORDS SUMMARY | 2025-06-27 22:18 | XMS_ITS | Encounter Summary ---
Author Organization [employer] Address [address] [facility] [address]t [place] [address] Care Team Providers Care Seed Sorter Name Role Phone Haylee Sánchez Primary Care Provider Encounter Details Date Type Department Care Team (Latest Contact Info) Description 06/23/2025 Travel Social History Tobacco Use Types Packs/Day [...] Description 06/29/2025 2:15 PM EDT Office Visit [facility] [address] [place] [phone] Haylee Sánchez ANP [address] [place] [address] documented as of this encounter Visit Diagnoses Not on filedocumented in this encounter Additional Health Concerns Assessment Noted Time PHQ-9 Depression Total Score: 0 07/04/20 24 1:52 PM EDT documented as of this encounter Care Teams Seed Sorter Relationship Specialty Start Date End Date Haylee Sánchez ANP [address] [place] [phone] PCP - General Family Medicine 05/10/21 documented as of this encounter
--- OUTSIDE RECORDS SUMMARY | 2025-06-27 22:18 | XMS_ITS | Encounter Summary ---
Author Organization [employer] Address [address] [facility] 7t [place] [address] Care Team Providers Care Food Production Supervisor Name Role Phone Haylee Sánchez Primary Care Provider [phone] Reason for Visit * Reason Comments Med Change Request Encounter Details Date Type Department Care Team (Late st Contact Info) Description 09/01/2024 Refill [facility] [address] [place] [address] Haylee Sánchez ANP [address] [place] [address] Musculoskeletal pain Social History Tobacco Use Types [...] Description 06/29/2025 2:15 PM EDT Office Visit [facility] [address] [place] [phone] Haylee Sánchez ANP [address] [place] [address] documented as of this encounter Visit Diagnoses Diagnosis Musculoskeletal pain Unspecified myalgia and myositis documented in this encounter Additional Health Concerns Assessment Noted Time PHQ-9 Depression Total Score: 0 07/04/20 24 1:52 PM EDT documented as of this encounter Care Teams Food Production Supervisor Relationship Specialty Start Date End Date Haylee Sánchez ANP [address] [place] [phone] PCP - General Family Medicine 05/10/21 documented as of this encounter
--- OUTSIDE RECORDS SUMMARY | 2025-06-27 22:18 | XMS_ITS | Encounter Summary ---
Author Organization [employer] Address [address] [facility] 7t [place] [address] Care Team Providers Care Monorail Crane Operator Name Role Phone Haylee Sánchez Primary Care Provider [phone] Reason for Visit * Reason Comments Med Refill Encounter Details Date Type Department Care Team (Late st Contact Info) Description 08/22/2023 Refill [facility] [address] [place] [address] Alicia Barajas MD [address] [place] [address] Social History Tobacco Use Types Packs/Day Years [...] Description 06/29/2025 2:15 PM EDT Office Visit [facility] [address] [place] [address] Haylee Sánchez ANP [address] [place] [address] documented as of this encounter Visit Diagnoses Not on filedocumented in this encounter Additional Health Concerns Assessment Noted Time PHQ-9 Depression Total Score: 0 12/29/19 23 11:22 AM EDT documented as of this encounter Care Teams Monorail Crane Operator Relationship Specialty Start Date End Date Haylee Sánchez ANP [address] [place] [address] PCP - General Family Medicine 05/10/21 documented as of this encounter
--- OUTSIDE RECORDS SUMMARY | 2025-06-27 22:18 | XMS_ITS | Encounter Summary ---
Author Organization [employer] Address [address] [facility] [address] [place] [address] Care Team Providers Care Application Consultant Name Role Phone Haylee Sánchez Primary Care Provider Encounter Details Date Type Department Care Team (Late st Contact Info) Description 04/12/2023 Orders Only [facility] [address] [place] [phone] Merlyn Rizvi LPN Social History Tobacco Use [...] Description 06/29/2025 2:15 PM EDT Office Visit [facility] [address] [place] [phone] Haylee Sánchez ANP [address] [place] [address] documented as of this encounter Visit Diagnoses Not on filedocumented in this encounter Additional Health Concerns Assessment Noted Time PHQ-9 Depression Total Score: 0 12/29/19 23 11:22 AM EDT documented as of this encounter Care Teams Application Consultant Relationship Specialty Start Date End Date Haylee Sánchez ANP [address] [place] [phone] PCP - General Family Medicine 05/10/21 documented as of this encounter
--- OUTSIDE RECORDS SUMMARY | 2025-06-27 22:18 | XMS_ITS | Clinical Summary ---
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 [facility] Blood Venous blood specimen / Unknown 06/16/2025 11:50 AM EDT 06/16/2025 1:42 PM EDT Kesha Carrington FLIGHT OPERATIONS DISPATCH CLERK LAB BLOOD ORDERABLES Final Resu lt Performing Organization Address City/[facility]/ZIP Co de Phone Number [facility] [address] [place] [phone] * Culture, Urine, Routine (06/15/2025 6:00 PM EDT) Urine Urine specimen obtained by clean catch procedure / Unknown 06/15/2025 6:00 PM EDT 06/16/2025 11:50 AM EDT Comment:UACC Narrative [facility] - 06/17/2025 9:19 AM EDT Urine Culture Report Result Urine Culture < 10,000 cfu/ml Specimen Source: Urine clean catch [facility] - GENERAL ORDE RABLES Final Result Performing Organization Address [facility] Co de Phone Number [facility] [address] [place] [address] [phone] * POCT Urinalysis (06/15/2025 5:58 PM EDT) [...] Media Lot # [id number] Lot# Expiration Date 49,026 Urine 06/15/2025 5:58 PM EDT Kesha Appram FLIGHT OPERATIONS DISPATCH CLERK POINT OF CARE TEST ENTER/EDIT O RDERABLES Final Result * (ABNORMAL) Lipid Panel, Standard (11/20/2024 9:45 AM EST) Triglycerides 199(H) <150 mg/dL [facility] Comment:Desirable Triglyceri de: less than 150 mg/dLBorderline High Triglyceride 150-199 mg/dLHigh Triglyceride: 200-499 mg/dLVery High Triglyceride: greater than or equal to 5OO mg/dL Cholesterol 204(H) <200 mg/dL [facility] Comment:Desirable Cholestero l: less than 200 mg/dLBorderline High Cholesterol: 200-239 mg/dLHigh Cholesterol: greater than 239 mg/dL LDL Cholesterol Calculated 127(H) <100 mg/dL [facility] Comment:Desirable LDL: less than 100 mg/dLNear Optimal/Above Optimal LDL: 110- 129 mg/dLBorderline High LDL: 130-159 mg/dLHigh LDL: 160-189 mg/dLVery High LDL: greater than or equal to 190 mg/dL HDL Cholesterol 38(L) >40 mg/dL [facility] Comment:Desirable HDL: great er than 40 mg/dL Note: This HDL assay may give artificially low results in patients with liver disease. Blood Venous blood specimen / Unknown 11/20/2024 9:45 AM EST 11/20/2024 11:51 AM EST [facility] LAB BLOOD ORDERABLES Final Resul t [facility] [address] [place] [address] [phone] from Last 3 Months or Most Recently Relevant to Health Maintenance Insurance [address] [address] [facility] C[place] AD[place] Care Teams Bander And Cellophaner Helper Machine Relationship Specialty Start Date End Date Kings Meade ANP [address] [place] [phone] PCP - General Family Medicine 05/10/21
--- OUTSIDE RECORDS SUMMARY | 2025-06-27 22:18 | XMS_ITS | Encounter Summary ---
Author Organization [employer] Address [address] [facility] 7t [place] [address] Care Team Providers Care Refrigeration Repair Supervisor Name Role Phone Haylee Sánchez Primary Care Provider [phone] Encounter Details Date Type Department Care Team (Late st Contact Info) Description 03/13/2023 Orders Only [facility] MED & PEDS [address] [place], [place] [phone] Ruthie Miles LPN Social History Tobacco Use [...] Description 06/29/2025 2:15 PM EDT Office Visit [facility] MEDICINE [address] [place], [place] [phone] Haylee Sánchez ANP [address] [place] [address] documented as of this encounter Visit Diagnoses Not on filedocumented in this encounter Additional Health Concerns Assessment Noted Time PHQ-9 Depression Total Score: 0 12/29/19 23 11:22 AM EDT documented as of this encounter Care Teams Refrigeration Repair Supervisor Relationship Specialty Start Date End Date Haylee Sánchez ANP [address] [place] [address] PCP - General Family Medicine 05/10/21 documented as of this encounter
--- OUTSIDE RECORDS SUMMARY | 2025-06-27 22:18 | XMS_ITS | Encounter Summary ---
Author Organization [employer] Address [address] [facility] 7t [place] [address] Care Team Providers Care Sheet Pile Hammer Operator Name Role Phone Haylee Sánchez Primary Care Provider [phone] Reason for Visit * Reason Comments Med Refill Encounter Details Date Type Department Care Team (Late st Contact Info) Description 07/18/2024 Refill [facility] MEDICINE [address] [place] [address] Haylee Sánchez ANP [address] [place] [address] Social History Tobacco Use Types Packs/Day Years [...] Description 06/29/2025 2:15 PM EDT Office Visit [facility] MED[facility] [address] [place] [phone] Haylee Sánchez ANP [address] [place] [address] documented as of this encounter Visit Diagnoses Not on filedocumented in this encounter Additional Health Concerns Assessment Noted Time PHQ-9 Depression Total Score: 0 07/04/20 24 1:52 PM EDT documented as of this encounter Care Teams Sheet Pile Hammer Operator Relationship Specialty Start Date End Date Haylee Sánchez ANP [address] [place] [phone] PCP - General Family Medicine 05/10/21 documented as of this encounter
--- OUTSIDE RECORDS SUMMARY | 2025-06-27 22:19 | XMS_ITS | Encounter Summary ---
Author Organization [employer] Address [address] [facility] 7t [place] [address] Care Team Providers Care Surgical Technologist Name Role Phone Kings Meade Primary Care Provider [phone] Encounter Details Date Type Department Care Team (Late st Contact Info) Description 06/27/2025 Orders Only GENERIC EXTERNAL DATA DEPARTMENT Provider, Generic External Data Social History Tobacco Use Types Packs/Day Years [...] Description 06/29/2025 2:15 PM EDT Office Visit [facility] MEDICINE [address] [place], [place] [phone] Kings Meade, ANP [address] [place], [place] [phone] documented as of this encounter Procedures Procedure Name Priority Date/Time Associated Diagnosis Comments XR CHEST 2 VIEWS Routine 06/27/2025 2:04 PM EDT INFLUENZA A B2 ID NOW (MARINO) Routine 06/27/2025 12:54 PM EDT COVID-19 ID NOW (MARINO) Routine 06/27/2025 12:54 PM EDT CBC WITH AUTO DIFFERENTIAL Routine 06/27/2025 12:54 PM EDT MAGNESIUM Routine 06/27/2025 12:54 PM EDT COMPREHENSIVE METABOLIC PANEL Routine 06/27/2025 12:54 PM EDT documented in this encounter Results * XR Chest 2 Views (06/27/2025 2:04 PM EDT) Anatomical Region Laterality Modality Chest Radiographic Yael ging 06/27/2025 2:04 PM EDT Narrative 06/27/2025 2:05 PM EDT [address] [address] XRay Report Signed Patient: Pepito Dinh MR#: [id number] : 1995 Acct:[id number] Age/Sex: 29 / M ADM Date: 06/27/25 Loc: HO.ED Attending Dr: Ordering Physician: Sarai Rome Date of Service: 06/27/25 Procedure(s): XR chest 2V Accession Number(s): [id number] cc: Sarai Rome; KINGS MEADE NP Reason [...] OV> 06/27/25 1405 DD/ 1404 TD/TT: 06/27/25 140 Knifeman: Procedure Note Donotuseinterpreter, Image - 06/27/[address] [address] XRay Report Signed Patient: Pepito Dinh LMR#: [id number] : 1995Acct:[id number] Age/Sex: 29 / MADM Date: 06/27/25 Loc: HO.ED Attending Dr: Ordering Physician: Sarai Rome Date of Service: 06/27/25 Procedure(s): XR chest 2V Accession Number(s): [id number] cc: Sarai Rome; KINGS MEADE NP Reason [...] Pineda MD in OV> 06/27/25 1405 DD/ 140 TD/TT: 06/27/251403 Knifeman: [facility] External Provider IMG XR PROCEDURES Final Result * COVID-19 ID NOW (vitaMedMD) (06/27/2025 12:54 PM EDT) IDNOW SERIAL# [id number] [facility] COVID-19 TEST Negative Negative [facility] COVID-19 NOTE See Note [facility] Comment: Results are for the identification of SARS-CoV2 RNA. TheSARS-CoV2 RNA is generally detectable in respiratory samplesduring the acute phase of infection. Positive results areindicative of the presence of SARS-CoV-2 RNA; clinicalcorrelation with patient history and other diagnosticinformation is necessary to determine patient infectionstatus. Positive results do not rule out bacterial infectionor co- infection with other viruses.Testing facilities within the [facility] are required to report all positive results [...] use by authorized laboratories.Testing performed on the [employer] Engine ID NOW utilizing NAAT. 06/27/2025 12:5 4 PM EDT 06/27/2025 12:57 PM EDT us Generic External Data Provider LAB MOLECULAR CHIKI GNOSTICS ORDERABLES Final Result Performing Organization Address [facility] Co de Phone Number LABS [address] [place] [phone] * Influenza A B2 ID NOW (Marino) (06/27/2025 12:54 PM EDT) IDNOW SERIAL# [id number] [facility] Influenza A Negative Negative LABS Influenza B2 Negative Negative LABS Influenza A B2 Note See Note LABS Comment:The Marino ID NOW In fluenza [...] EDT us Generic External Data Provider LAB MICROBIOLOGY - GENERAL ORDERABLES Final Result Performing Organization Address [facility] de Phone Number [facility] [address] [place] [phone] * Magnesium (06/27/2025 12:54 PM EDT) Magnesium 2.2 1.6 - 2.6 mg/dL [facility] 06/27/2025 12:5 4 PM EDT 06/27/2025 12:57 PM EDT Generic External Data Provider LAB BLOOD ORDERAB LES Final Result Performing Organization Address [facility] Co de Phone Number [facility] [address] [place] [phone] * (ABNORMAL) Comprehensive Metabolic Panel (06/27/2025 12:54 PM EDT) Sodium 141 135 - 145 mmol/L [facility] Potassium 4.1 3.3 - 5.1 mmol/L [facility] Chloride 105 96 - 108 mmol/L [facility] Carbon Dioxide 25 22 - 29 mmol/L [facility] Anion Gap 15 12 - 20 LABS Urea Nitrogen (BUN) 9 9 - 16 mg/dL [facility] Creatinine, Serum 0.97 0.5 - 1.4 mg/dL [facility] Creatinine Clr Calc Pharmacy 166.0 LABS Comment:eGFR (calculated fro m the MDRD study equation) and eCrCl(calculated from the Cockcroft-Gault equation) are based ondifferent parameters and may not yield comparable results.If eCrCl result is absurd, please check patient'sheight/weight. Estimated Glomerular Filt Rate >60 LABS Comment:Chronic Kidney Disea se: Estimated GFR < 60 mL/min/1.94z6Polztt Kidney Disease: Estimated GFR < 15 mL/min/1.73m2 Glucose 125(H) 60 - 115 mg/dL [facility] Calcium 8.9 8.4 - 10.2 mg/dL [facility] Bilirubin, Total 0.8 0.0 - 1.0 mg/dL [facility] Aspartate Amino Transferase 85(H) 5 - 37 U/L [facility] Alanine Aminotransferase 124(H) 0 - 40 U/L [facility] Total Protein 8.0 6.5 - 8.0 g/dL LABS Albumin Level 4.7 3.5 - 5.0 g/dL [facility] Alkaline Phosphatase 76 39 - 117 U/L [facility] 06/27/2025 12:5 4 PM EDT 06/27/2025 12:57 PM EDT us Generic External Data Provider LAB BLOOD ORDERAB LES Final Result [facility] [address] [place] [phone] * CBC auto differential (06/27/2025 12:54 PM EDT) White Blood Count 7.3 4.8 - 10.8 X10*3/uL LABS Red Blood Count 5.56 4.60 - 5.80 X10*6/uL LABS Hemoglobin 17.5 14.0 - 18.0 g/dl LABS Hematocrit 51.3 42.0 - 52.0 % LABS Mean Corpuscular Volume 92.3 80.0 - 98.0 fL LABS Mean Corpuscular Hemoglobin 31.5 27.0 - 33.0 pg LABS Mean Corpuscular HGB Conc 34.1 31.0 - 36.0 g/dl [facility] Red Cell Distribution Width 12.2 11.0 - 16.0 % LABS Platelet Count 210 160 - 400 X10*3/uL LABS Mean Platelet Volume 9.4 9.4 - 12.4 fL LABS Neutrophils Percent Auto 63.6 45 - 73 % LABS Imm Gran Pct Auto 0.3 0.0 - 0.4 % LAB[facility] Lymphocytes Percent Auto 26.8 20 - 40 % LABS Monocytes Percent Auto 6.4 2 - 11 % LAB[facility] Eosinophils Percent Auto 2.5 0 - 4 % LABS Basophils Percent Auto 0.4 0 - 2 % LABS NRBC Pct Auto 0.0 0.0 - 0.2 /100WBC LABS Neutrophils Absolute Auto 4.7 2.0 - 8.3 x10*3/uL LABS Imm Gran Abs Auto 0.02 0.00 - 0.03 X10*3/uL LABS Lymphocytes Absolute Auto 2.0 1.2 - 4.9 X10*3/uL LABS Monocytes Absolute Auto 0.5 0.1 - 1.2 X10*3/uL LABS Eosinophils Absolute Auto 0.2 0.0 - 0.4 X10*3/uL LABS Basophils Absolute Auto 0.0 0.0 - 0.2 X10*3/uL LABS NRBC Abs Auto 0.000 0.0 - 0.012 X10*3/uL [facility] 06/27/2025 12:5 4 PM EDT 06/27/2025 12:57 PM EDT us Generic External Data Provider LAB BLOOD ORDERAB LES Final Result Performing Organization Address City/State/[facility] Co de Phone Number [facility] [address] [place] [phone] documented in this encounter Visit Diagnoses Not on filedocumented in this encounter Additional Health Concerns Assessment Noted Time PHQ-9 Depression Total Score: 0 07/04/20 24 1:52 PM EDT documented as of this encounter Care Teams Surgical Technologist Relationship Specialty Start Date End Date Kings Meade ANP [address] [place] [phone] PCP - General Family Medicine 05/10/21 documented as of this encounter
--- OUTSIDE RECORDS SUMMARY | 2025-06-27 22:19 | XMS_ITS | Encounter Summary ---
Author Organization [employer] Address [address] [facility] 7t [place] [address] Care Team Providers Care Electronic Security Technician Name Role Phone Haylee Sánchez Primary Care Provider [phone] Encounter Details Date Type Department Care Team (Latest Contact Info) Description 06/21/2021 Abstract [facility] CONVERSIONS Dental, Provider, DDS Social History [...] Description 06/29/2025 2:15 PM EDT Office Visit [facility] MEDICINE [address] [place] [address] Haylee Sánchez ANP [address] [place] [address] documented as of this encounter Visit Diagnoses Not on filedocumented in this encounter Care Teams Electronic Security Technician Relationship Specialty Start Date End Date Haylee Sánchez ANP [address] [place] [address] PCP - General Family Medicine 05/10/21 documented as of this encounter
--- OUTSIDE RECORDS SUMMARY | 2025-06-27 22:19 | XMS_ITS | Encounter Summary ---
Author Organization [employer] Address [address] [facility] 7t [place] [address] Care Team Providers Care Police Guard Name Role Phone Haylee Sánchez Primary Care Provider [phone] Reason for Visit * Reason Onset Date Comments triage 12/27/2022 Encounter Details Date Type Department Care Team ([facility] st Contact Info) Description 12/27/2022 Telephone [facility] MEDICINE [address] [place] [address] Haylee Sánchez ANP [address] [place] [phone] triage Social History Tobacco Use Types Packs/Day [...] in broken right clavicle. Pt went to [facility] ED and was kept overnight released [...] Office Visit [facility] MEDICINE [address] [place] [address] Haylee Sánchez ANP [address] [place] [address] documented as of this encounter Visit Diagnoses Not on filedocumented in this encounter Care Teams Police Guard Relationship Specialty Start Date End Date Haylee Sánchez ANP [address] [place] [address] PCP - General Family Medicine 05/10/21 documented as of this encounter
--- OUTSIDE RECORDS SUMMARY | 2025-06-27 22:19 | XMS_ITS | Encounter Summary ---
Author Organization [employer] Address [address] [facility] 7t [place] [address] Care Team Providers Care Desulphurizer Operator Name Role Phone Haylee Sánchez Primary Care Provider [phone] Encounter Details Date Type Department Care Team (Late st Contact Info) Description 01/04/2023 Orders Only [facility] CHC MED & PEDS [address] [place], [place] [phone] Ruthie Miles LPN Social History Tobacco Use [...] Description 06/29/2025 2:15 PM EDT Office Visit [facility] MEDICINE [address] [place], [place] [phone] Haylee Sánchez ANP [address] [place] [address] documented as of this encounter Visit Diagnoses Not on filedocumented in this encounter Additional Health Concerns Assessment Noted Time PHQ-9 Depression Total Score: 0 12/29/19 23 11:22 AM EDT documented as of this encounter Care Teams Desulphurizer Operator Relationship Specialty Start Date End Date Haylee Sánchez ANP [address] [place] [address] PCP - General Family Medicine 05/10/21 documented as of this encounter
--- OUTSIDE RECORDS SUMMARY | 2025-06-27 22:19 | XMS_ITS | Encounter Summary ---
Author Organization [facility] [facility] Address [address] [facility] 7t [place] [address] Care Team Providers Care Telephone Maintainer Name Role Phone Haylee Sánchez Primary Care Provider [phone] Reason for Visit * Reason Comments Med Refill Encounter Details Date Type Department Care Team (Late Contact Info) Description 12/13/2022 Refill [facility] WALK-IN CENTER [address] [place] [phone] Vasyl Roy FNP Allergic rhinitis, unspecified seasonality, [...] Description 06/29/2025 2:15 PM EDT Office Visit [facility] MEDICINE [address] [place] [address] Haylee Sánchez ANP [address] [place] [address] documented as of this encounter Visit Diagnoses Diagnosis Allergic rhinitis, unspecified seasonality, unspecified trigger Neck pain Cervicalgia Foraminal stenosis of cervical region documented in this encounter Care Teams Telephone Maintainer Relationship Specialty Start Date End Date Haylee Sánchez ANP [address] [place] [address] PCP - General Family Medicine 05/10/21 documented as of this encounter
--- OUTSIDE RECORDS SUMMARY | 2025-06-27 22:19 | XMS_ITS | Encounter Summary ---
Author Organization [employer] Address [address] [facility] [address] [place] [address] Care Team Providers Care Coach Wirer Name Role Phone Haylee Sánchez Primary Care Provider [phone] Encounter Details Date Type Department Care Team (Late st Contact Info) Description 06/26/2025 Telephone [facility] WALK[facility]IN CENTER [address] [place], [place] [phone] Samantha Farmer MA Social History Tobacco Use Types Packs/Day Years [...] Telephone Encounter - Samantha Farmer MA - 06/26/2025 2:44 PM EDT Chart Prep Labs: done Images: ordered 06/16/25 Referrals: radiology/gasro 06/16/25 Vaccines due: Covid, Flu, and Hep A Screenings: not applicable Overdue care gaps: PHQ-9 and Disability screen documented in this encounter Plan of Treatment Upcoming Encounters Date Type Department Care Team (Late st Contact Info) Description 06/29/2025 2:15 PM EDT Office Visit [facility] MEDICINE [address] [place] [address] Haylee Sánchez ANP [address] [place] [address] documented as of this encounter Visit Diagnoses Not on filedocumented in this encounter Additional Health Concerns Assessment Noted Time PHQ-9 Depression Total Score: 0 07/04/20 24 1:52 PM EDT documented as of this encounter Care Teams Coach Wirer Relationship Specialty Start Date End Date Haylee Sánchez ANP [address] [place] [phone] PCP - General Family Medicine 05/10/21 documented as of this encounter
[2025-06-27 22:26] VITALS: BP 165/87; PULSE 93; RESP 18; TEMP 36.3; O2SAT 98
== END 2025-06-27 22:27 | disposition home or self-care (01) ==
PROVIDERS: Emergency Provider Emergency Medicine; PCP Nurse Practitioner Primary Care
DX: T50.901A Poisoning by unspecified drugs, medicaments and biological substances, accidental (unintentional), initial encounter (principal); Y92.9 Unspecified place or not applicable
CPT/HCPCS: 99282